=== PATIENT | male | born 1975 | race Caucasian/White ===

== ENCOUNTER 2017-02-12 09:51 | Inpatient (IN) | payer OTHER ==
[2017-02-12] MEDS ORDERED: HYDROmorphone 1 MG/ML 1 ML SYRINGE IVP STA ×2 (10:09→13:05)
[2017-02-12] MEDS ORDERED: ONDANSETRON 4 MG/2 ML VIAL IVP STA (10:09)
[2017-02-12] MEDS ORDERED: SODIUM CHLORIDE 0.9% 1,000 ML IV STA ×2 (10:10)
[2017-02-12] MEDS ORDERED: PANTOPRAZOLE 40 MG/10 ML VIAL IVP STA (10:10)
--- NOTE | 2017-02-12 10:13 | ED ---
General Adult HPI <DestinyAdan Morgan - Last Filed: 02/12/17 13:13> - General Source: patient, RN notes reviewed Mode of arrival: ambulatory Limitations: no limitations <Justin Del Toro - Last Filed: 02/12/17 13:20> - General Chief complaint: Nausea/Vomiting/Diarrhea Stated complaint: NAUSEA, VOMITING X 2 DAYS Time Seen by Provider: 02/12/17 10:00 - History of Present Illness Initial comments: Patient 41-year-old male significant past medical history for diabetes, hypertension, who presents emergency room today with a chief complaint of increased nausea vomiting over the last 2 days. Patient does admit that he has had some abdominal pain going across abdomen also some chest pain. He states both the symptoms started after of his nausea vomiting. Patient denies any other complaints or associated symptoms at this time. Does admit to chronic wound to the left foot. Patient denies any recent fever, chills, shortness of breath, numbness or tingling, dysuria or hematuria, constipation or diarrhea, headaches or visual changes, or any other complaints. (Justin Del Toro) - Related Data Home Medications Medication Instructions Recorded Confirmed Insulin NPL/Insulin Lispro 30 unit SQ BID 06/14/15 02/12/17 [humaLOG Mix 75-25 Kwikpen] Atorvastatin [Lipitor] 10 mg PO HS 09/05/16 02/12/17 Citalopram Hydrobromide [CeleXA] 20 mg PO DAILY 09/05/16 02/12/17 Cyclobenzaprine [Flexeril] 10 mg PO HS PRN 09/05/16 02/12/17 HYDROcodone/APAP 7.5-325MG [[place] 1 tab PO Q6HR 09/05/16 02/12/17 7.5-325] Metoclopramide [Reglan] 10 mg PO QID 09/05/16 02/12/17 Ondansetron Odt [Zofran ODT] 4 mg SUBLINGUAL Q12H PRN 09/05/16 02/12/17 Lisinopril [Zestril] 10 mg PO DAILY 12/20/16 02/12/17 Nitroglycerin 0.4 mg SL Q5M PRN 12/20/16 02/12/17 Aspirin 81 mg PO DAILY 02/12/17 02/12/17 Carvedilol [Coreg] 6.25 mg PO BID 02/12/17 02/12/17 Ergocalciferol [Vitamin D2] 50,000 unit PO Q7D 02/12/17 02/12/17 Allergies Allergy/AdvReac Type Severity Reaction Status Date / Time No Known Allergies Allergy Verified 02/12/17 09:55 Review of Systems ROS Other: All systems not noted in ROS Statement are negative. <Adan Dixon - Last Filed: 02/12/17 13:13> ROS Other: All systems not noted in ROS Statement are negative. <Justin Del Toro - Last Filed: 02/12/17 13:20> ROS Statement: Those systems with pertinent positive or pertinent negative responses have been documented in the HPI. Past Medical History Past Medical History: Diabetes Mellitus, Hyperlipidemia, Hypertension, Sleep Apnea/CPAP/BIPAP Additional Past Medical History / Comment(s): , HX COMA, ESOPHAGEAL DAMAGEHX OF FEEDING TUBE X 17 MONTHS, past WOUND LEFT CHEST(cellulitis). no cpap used, hx blood clot mike arms. infection in rt second toe osteomyelitis. loose stools, seizure as , wound lt great toe History of Any Multi-Drug Resistant Organisms: MRSA Date of last positivie culture/infection: 02/28/16, 06/17/15 lt chest cellulitis MDRO Source:: rt second toe Past Surgical History: Tonsillectomy Additional Past Surgical History / Comment(s): bronchial cyst removed, esophagus clipped and removed, stomach stretching, pt reports 35 different procedures on esophogus, amputation rt great toe and toe next to great toe, picc line 6-16, i&d chest wound Past Anesthesia/Blood Transfusion Reactions: No Reported Reaction Past Psychological History: No Psychological Hx Reported Smoking Status: Never smoker Past Alcohol Use History: Rare Past Drug Use History: None Reported - Past Family History Father Family Medical History: Diabetes Mellitus Additional Family Medical History / Comment(s): ETOH Mother Family Medical History: No Reported History <Justin Del Toro - Last Filed: 02/12/17 13:20> General Exam <Adan Dixon - Last Filed: 02/12/17 13:13> Limitations: no limitations <Justin Del Toro - Last Filed: 02/12/17 13:20> - General Exam Comments Initial Comments: General: The patient is awake and alert, in no distress, and does not appear acutely ill. Eye: Pupils are equal, round and reactive to light, extra-ocular movements are intact. No nystagmus. There is normal conjunctiva bilaterally. No signs of icterus. Ears, nose, mouth and throat: There are moist mucous membranes and no oral lesions. Neck: The neck is supple, there is no tenderness or JVD. Cardiovascular: There is a regular rate and rhythm. No murmur, rub or gallop is appreciated. Respiratory: Lungs are clear to auscultation, respirations are non-labored, breath sounds are equal. No wheezes, stridor, rales, or rhonchi. Gastrointestinal: Normal appearance of the abdomen. Normal bowel sounds. Abdomen soft on palpation. Patient does have mild diffuse tenderness in the epigastric and upper quadrants. No rebound tenderness. No Guarding. No CVA tenderness. Musculoskeletal: Normal ROM, no tenderness. Strength 5/5. Sensation intact. Pulses equal bilaterally 2+. Neurological: A&O x 3. CN II-XII intact, There are no obvious motor or sensory deficits. Coordination appears grossly intact. Speech is normal. Skin: Skin is warm and dry and no rashes or lesions are noted. Psychiatric: Cooperative, appropriate mood & affect, normal judgment. (Justin Del Toro) EKG Findings - EKG Comments: EKG Findings:: EKG performed at 1024: A 12-lead EKG was performed and interpreted by me as showing the following: Rate is 68, and rhythm is normal sinus. There are normal QRS complexes and normal R-wave progression. ST segments have no elevation or depression, and VA segments appear normal. <Justin Del Toro - Last Filed: 02/12/17 13:20> Medical Decision Making - Lab Data Result diagrams: 02/12/17 10:47 02/12/17 10:47 <Adan Dixon - Last Filed: 02/12/17 13:13> - Lab Data Result diagrams: 02/12/17 10:47 02/12/17 10:47 <Justin Del Toro - Last Filed: 02/12/17 13:20> - Medical Decision Making The patient was seen and examined. All diagnostics were reviewed. The case is discussed with the PA and agree with the findings as documented. The case will be discussed with internal medicine in the near future for admission. (Adan Dixon) Patient reexamined at this time shows no signs of distress. Sitting up at bedside. He does admit that he's felt better here with nausea medication but symptoms seem to be returning. Patient's x-rays reviewed and shows no acute change. His labs been reviewed shows blood sugar in the 230s. Acetone negative. Potassium 5.9. Patient EKG shows no changes. Case discussed in detail with attending physician Dr. Dixon. Patient will be started on Kayexalate. Hospital currently does not have sodium bicarbonate at this time we 'll hold and recheck potassium. Patient will be admitted to the hospital for further hydration and nausea medication for his symptoms and chest pain rule out. (Justin Del Toro) - Lab Data Lab Results 02/12/17 02/12/17 02/12/17 Range/Units 09:56 10:14 10:47 WBC (3.8-10.6) k/uL RBC (4.30-5.90) m/uL Hgb (13.0-17.5) gm/dL Hct (39.0-53.0) % MCV (80.0-100.0) fL MCH (25.0-35.0) pg MCHC (31.0-37.0) g/dL RDW (11.5-15.5) % Plt Count (150-450) k/uL Neutrophils % % Lymphocytes % % Monocytes % % Eosinophils % % Basophils % % Neutrophils # (1.3-7.7) k/uL Lymphocytes # (1.0-4.8) k/uL Monocytes # (0-1.0) k/uL Eosinophils # (0-0.7) k/uL Basophils # (0-0.2) k/uL Hypochromasia PT (9.0-12.0) sec INR (<1.1) APTT (22.0-30.0) sec Sodium 142 (137-145) mmol/L Potassium 5.9 H (3.5-5.1) mmol/L Chloride 106 (98-107) mmol/L Carbon Dioxide 24 (22-30) mmol/L Anion Gap 12 mmol/L BUN 15 (9-20) mg/dL Creatinine 0.91 (0.66-1.25) mg/dL Est GFR (MDRD) Af Amer >60 (>60 ml/min/1.73 sqM) Est GFR (MDRD) Non-Af >60 (>60 ml/min/1.73 sqM) Glucose 277 H (74-99) mg/dL POC Glucose (mg/dL) 225 H 234 H (75-99) mg/dL POC Glu Affiliate Manager Shantell Zacarias Kayla Calcium 10.0 (8.4-10.2) mg/dL Total Bilirubin 0.6 (0.2-1.3) mg/dL AST 25 (17-59) U/L ALT 24 (21-72) U/L Alkaline Phosphatase 95 (38-126) U/L Total Creatine Kinase (55-170) U/L CK-MB (CK-2) (0.0-2.4) ng/mL CK-MB (CK-2) Rel Index Troponin I (0.000-0.034) ng/mL Total Protein 8.6 H (6.3-8.2) g/dL Albumin 5.2 H (3.5-5.0) g/dL Amylase 42 (30-110) U/L Lipase 76 (23-300) U/L Urine Color Urine Appearance (Clear) Urine pH (5.0-8.0) Ur Specific [place] (1.001-1.035) Urine Protein (Negative) Urine Glucose (UA) (Negative) Urine Ketones (Negative) Urine Blood (Negative) Urine Nitrite (Negative) Urine Bilirubin (Negative) Urine Urobilinogen (<2.0) mg/dL Ur Leukocyte Esterase (Negative) Urine RBC (0-5) /hpf Urine WBC (0-5) /hpf Ur Squamous Epith Cells (0-4) /hpf Hyaline Casts (0-2) /lpf Urine Mucus (None) /hpf Acetone, Qual Negative (Negative) 02/12/17 02/12/17 02/12/17 Range/Units 10:47 10:47 10:47 WBC 10.4 (3.8-10.6) k/uL RBC 4.67 (4.30-5.90) m/uL Hgb 13.4 (13.0-17.5) gm/dL Hct 41.7 (39.0-53.0) % MCV 89.4 (80.0-100.0) fL MCH 28.7 (25.0-35.0) pg MCHC 32.1 (31.0-37.0) g/dL RDW 13.6 (11.5-15.5) % Plt Count 257 (150-450) k/uL Neutrophils % 78 % Lymphocytes % 13 % Monocytes % 3 % Eosinophils % 4 % Basophils % 1 % Neutrophils # 8.1 H (1.3-7.7) k/uL Lymphocytes # 1.4 (1.0-4.8) k/uL Monocytes # 0.4 (0-1.0) k/uL Eosinophils # 0.4 (0-0.7) k/uL Basophils # 0.1 (0-0.2) k/uL Hypochromasia Slight PT 10.6 (9.0-12.0) sec INR 1.0 (<1.1) APTT 21.4 L (22.0-30.0) sec Sodium (137-145) mmol/L Potassium (3.5-5.1) mmol/L Chloride (98-107) mmol/L Carbon Dioxide (22-30) mmol/L Anion Gap mmol/L BUN (9-20) mg/dL Creatinine (0.66-1.25) mg/dL Est GFR (MDRD) Af Amer (>60 ml/min/1.73 sqM) Est GFR (MDRD) Non-Af (>60 ml/min/1.73 sqM) Glucose (74-99) mg/dL POC Glucose (mg/dL) (75-99) mg/dL POC Glu Affiliate Manager ID Calcium (8.4-10.2) mg/dL Total Bilirubin (0.2-1.3) mg/dL AST (17-59) U/L ALT (21-72) U/L Alkaline Phosphatase (38-126) U/L Total Creatine Kinase 121 (55-170) U/L CK-MB (CK-2) 2.3 (0.0-2.4) ng/mL CK-MB (CK-2) Rel Index 1.9 Troponin I <0.012 (0.000-0.034) ng/mL Total Protein (6.3-8.2) g/dL Albumin (3.5-5.0) g/dL Amylase (30-110) U/L Lipase (23-300) U/L Urine Color Urine Appearance (Clear) Urine pH (5.0-8.0) Ur Specific [place] (1.001-1.035) Urine Protein (Negative) Urine Glucose (UA) (Negative) Urine Ketones (Negative) Urine Blood (Negative) Urine Nitrite (Negative) Urine Bilirubin (Negative) Urine Urobilinogen (<2.0) mg/dL Ur Leukocyte Esterase (Negative) Urine RBC (0-5) /hpf Urine WBC (0-5) /hpf Ur Squamous Epith Cells (0-4) /hpf Hyaline Casts (0-2) /lpf Urine Mucus (None) /hpf Acetone, Qual (Negative) 02/12/17 Range/Units 11:53 WBC (3.8-10.6) k/uL RBC (4.30-5.90) m/uL Hgb (13.0-17.5) gm/dL Hct (39.0-53.0) % MCV (80.0-100.0) fL MCH (25.0-35.0) pg MCHC (31.0-37.0) g/dL RDW (11.5-15.5) % Plt Count (150-450) k/uL Neutrophils % % Lymphocytes % % Monocytes % % Eosinophils % % Basophils % % Neutrophils # (1.3-7.7) k/uL Lymphocytes # (1.0-4.8) k/uL Monocytes # (0-1.0) k/uL Eosinophils # (0-0.7) k/uL Basophils # (0-0.2) k/uL Hypochromasia PT (9.0-12.0) sec INR (<1.1) APTT (22.0-30.0) sec Sodium (137-145) mmol/L Potassium (3.5-5.1) mmol/L Chloride (98-107) mmol/L Carbon Dioxide (22-30) mmol/L Anion Gap mmol/L BUN (9-20) mg/dL Creatinine (0.66-1.25) mg/dL Est GFR (MDRD) Af Amer (>60 ml/min/1.73 sqM) Est GFR (MDRD) Non-Af (>60 ml/min/1.73 sqM) Glucose (74-99) mg/dL POC Glucose (mg/dL) (75-99) mg/dL POC Glu Affiliate Manager ID Calcium (8.4-10.2) mg/dL Total Bilirubin (0.2-1.3) mg/dL AST (17-59) U/L ALT (21-72) U/L Alkaline Phosphatase (38-126) U/L Total Creatine Kinase (55-170) U/L CK-MB (CK-2) (0.0-2.4) ng/mL CK-MB (CK-2) Rel Index Troponin I (0.000-0.034) ng/mL Total Protein (6.3-8.2) g/dL Albumin (3.5-5.0) g/dL Amylase (30-110) U/L Lipase (23-300) U/L Urine Color Yellow Urine Appearance Clear (Clear) Urine pH 5.5 (5.0-8.0) Ur Specific [place] 1.020 (1.001-1.035) Urine Protein 1+ H (Negative) Urine Glucose (UA) 4+ H (Negative) Urine Ketones Negative (Negative) Urine Blood Trace H (Negative) Urine Nitrite Negative (Negative) Urine Bilirubin Negative (Negative) Urine Urobilinogen <2.0 (<2.0) mg/dL Ur Leukocyte Esterase Negative (Negative) Urine RBC 1 (0-5) /hpf Urine WBC <1 (0-5) /hpf Ur Squamous Epith Cells <1 (0-4) /hpf Hyaline Casts 15 H (0-2) /lpf Urine Mucus Rare H (None) /hpf Acetone, Qual (Negative) Disposition <Adan Dixon - Last Filed: 02/12/17 13:13> Time of Disposition: 13:03 <Justin Del Toro - Last Filed: 02/12/17 13:20> Clinical Impression: Nausea & vomiting, Hyperkalemia, Chest pain Disposition: ADMITTED IP TO THIS HOSP Referrals: Jeanne Celeste MD [Primary Care Provider] - 1-2 days
[2017-02-12 10:14] LABS: Glucose,Whole Blood 225 mg/dL (75-99)
[2017-02-12 10:18] LABS: Glucose,Whole Blood 234 mg/dL (75-99)
[2017-02-12 11:12] LABS: Basophils # (A) 0.1 k/uL (0-0.2); Basophils % (A) 1 %; CH 28.7; CHCM 32.3; Eosinophils # (A) 0.4 k/uL (0-0.7); Eosinophils % (A) 4 %; HCT 41.7 % (39.0-53.0); HGB 13.4 gm/dL (13.0-17.5); Hypochromasia Slight; Luc % (Auto) 1; Lymphocytes # (A) 1.4 k/uL (1.0-4.8); Lymphocytes % (A) 13 %; MCH 28.7 pg (25.0-35.0); MCHC 32.1 g/dL (31.0-37.0); MCV 89.4 fL (80.0-100.0); Mean Platelet Volume 7.8; Monocytes # (A) 0.4 k/uL (0-1.0); Monocytes % (A) 3 %; Neutrophils # (A) 8.1 k/uL (1.3-7.7); Neutrophils % (A) 78 %; RBC 4.67 m/uL (4.30-5.90); RDW 13.6 % (11.5-15.5); WBC 10.4 k/uL (3.8-10.6); WBC (Perox) 10.59
[2017-02-12 11:19] LABS: ALT 24 U/L (21-72); AST 25 U/L (17-59); Alkaline Phosphatase 95 U/L (38-126); Amylase 42 U/L (30-110); Blood Urea Nitrogen 15 mg/dL (9-20); Carbon Dioxide 24 mmol/L (22-30); Chloride 106 mmol/L (98-107); Glucose 277 mg/dL (74-99); Non-African American GFR(MDRD) >60 (>60 ml/min/1.73 sqM); Potassium 5.9 mmol/L (3.5-5.1); Total Bilirubin 0.6 mg/dL (0.2-1.3); Total Protein 8.6 g/dL (6.3-8.2)
[2017-02-12 11:20] LABS: Prothrombin Time 10.6 sec (9.0-12.0)
[2017-02-12 11:28] LABS: Partial Thromboplastin Time 21.4 sec (22.0-30.0)
[2017-02-12 11:37] LABS: Creatine Kinase 121 U/L (55-170)
[2017-02-12] MEDS ORDERED: METOCLOPRAMIDE 5 MG/ML 2 ML VIAL IVP STA (11:47)
[2017-02-12 11:49] LABS: Creatine Kinase MB 2.3 ng/mL (0.0-2.4); Troponin I <0.012 ng/mL (0.000-0.034)
[2017-02-12 11:55] LABS: Anion Gap 12 mmol/L; Sodium 142 mmol/L (137-145)
[2017-02-12 12:10] LABS: Appearance,Urine Clear (Clear); Bilirubin,Urine Negative (Negative); Glucose,Urine (UA) 4+ (Negative); Ketones,Urine Negative (Negative); Leukocyte Esterase,Urine Negative (Negative); Mucus,Urine Rare /hpf; Nitrite,Urine Negative (Negative); PH, Urine 5.5 (5.0-8.0); Particle Count 2648; Protein,Urine 1+ (Negative); RBC,Urine 1 /hpf (0-5); Squamous Epithelial Cell,Urine <1 /hpf (0-4); UA Billing (MACRO vs. MICRO) MICRO; Urobilinogen,Urine <2.0 mg/dL (<2.0); WBC,Urine <1 /hpf (0-5)
--- NOTE | 2017-02-12 13:00 | XR ---
EXAMINATION TYPE: XR chest 2V DATE OF EXAM: 02/12/2017 12:52 PM HISTORY: cough. REFERENCE: Previous study dated 09/05/2016. FINDINGS: There is stable pleural thickening on the right. Lung volumes are mildly prominent. Heart s ize is within normal limits. IMPRESSION: NO SIGNIFICANT INTERVAL CHANGE IN THE APPEARANCE OF THE CHEST.
[2017-02-12] MEDS ORDERED: PROMETHAZINE SUPPOSITORY 25 MG SUPP RECTAL STA (13:12)
[2017-02-12] MEDS ORDERED: SODIUM CHLORIDE 0.9% 1,000 ML IV ONE (13:13)
[2017-02-12] MEDS ORDERED: NALOXONE 0.4 MG/ML 1 ML VIAL IV PRN (13:13)
[2017-02-12] MEDS ORDERED: ACETAMINOPHEN TAB 325 MG TAB PO PRN (13:13)
[2017-02-12] MEDS ORDERED: ASPIRIN 81 MG CHEW PO STA (13:18)
[2017-02-12] MEDS ORDERED: NITROGLYCERIN SL TABS 0.4 MG TAB SUBLINGUAL PRN (13:18)
[2017-02-12] MEDS: SODIUM POLYSTYRENE SULFONATE 15 GM/60 ML BOTTLE PO ONE ×2 (13:29→13:39)
[2017-02-12] MEDS: HYDROmorphone 1 MG/ML 1 ML SYRINGE IV PRN ×2 (16:48→20:12)
[2017-02-12 17:40] LABS: Creatine Kinase 112 U/L (55-170)
[2017-02-12 17:49] LABS: Creatine Kinase MB 2.1 ng/mL (0.0-2.4)
[2017-02-12 18:16] LABS: Troponin I <0.012 ng/mL (0.000-0.034)
[2017-02-12] MEDS: METOCLOPRAMIDE 5 MG/ML 2 ML VIAL IVP SCH ×2 (19:26→23:24)
[2017-02-12 20:48] LABS: Glucose,Whole Blood 248 mg/dL (75-99)
[2017-02-12 21:24] LABS: Hemoglobin A1C 7.8 % (4.2-6.1)
[2017-02-12] MEDS: INSULIN LISPRO (humaLOG) 300 UNIT/3 ML VIAL SQ SCH (21:40)
[2017-02-12] MEDS ORDERED: CYCLOBENZAPRINE 10 MG TAB PO PRN (22:17)
[2017-02-12] MEDS ORDERED: TEMAZEPAM 15 MG CAP PO PRN (22:19)
[2017-02-12 23:16] LABS: Creatine Kinase 93 U/L (55-170)
[2017-02-12] MEDS: HYDROmorphone 1 MG/ML 1 ML SYRINGE IVP PRN (23:25)
[2017-02-12] MEDS: PANTOPRAZOLE 40 MG/10 ML VIAL IVP SCH (23:25)
[2017-02-12 23:28] LABS: Creatine Kinase MB 1.6 ng/mL (0.0-2.4); Troponin I <0.012 ng/mL (0.000-0.034)
[2017-02-13] MEDS: HYDROcodone/APAP 7.5-325MG 1 EACH TAB PO SCH ×3 (01:08→12:58)
[2017-02-13] MEDS: ONDANSETRON 4 MG/2 ML VIAL IVP PRN ×2 (02:07→09:31)
[2017-02-13] MEDS: HYDROmorphone 1 MG/ML 1 ML SYRINGE IVP PRN ×5 (04:40→23:39)
[2017-02-13 06:05] LABS: Glucose,Whole Blood 245 mg/dL (75-99)
[2017-02-13] MEDS: INSULIN LISPRO (humaLOG) 300 UNIT/3 ML VIAL SQ SCH ×4 (06:42→20:48)
[2017-02-13] MEDS: METOCLOPRAMIDE 5 MG/ML 2 ML VIAL IVP SCH ×4 (06:42→23:38)
[2017-02-13 06:57] LABS: Basophils % (A) 0 %; CH 28.5; CHCM 32.6; Eosinophils % (A) 0 %; HCT 35.3 % (39.0-53.0); HDW 2.91; HGB 11.7 gm/dL (13.0-17.5); Luc # (Auto) 0.08; Luc % (Auto) 1; Lymphocytes # (A) 1.1 k/uL (1.0-4.8); Lymphocytes % (A) 13 %; MCH 29.1 pg (25.0-35.0); MCHC 33.2 g/dL (31.0-37.0); MCV 87.7 fL (80.0-100.0); Mean Platelet Volume 7.8; Monocytes # (A) 0.4 k/uL (0-1.0); Monocytes % (A) 4 %; Neutrophils # (A) 7.2 k/uL (1.3-7.7); Neutrophils % (A) 82 %; RBC 4.03 m/uL (4.30-5.90); RDW 13.5 % (11.5-15.5); WBC 8.7 k/uL (3.8-10.6)
[2017-02-13 07:35] LABS: Cholesterol 159 mg/dL (<200); HDL Cholesterol 38 mg/dL (40-60); Triglycerides 173 mg/dL (<150)
--- NOTE | 2017-02-13 08:11 | HP ---
DATE OF ADMISSION: 02/12/2017 CHIEF COMPLAINT: Nausea, vomiting and unable to keep anything down. HISTORY OF PRESENT ILLNESS: This 41-year-old gentleman with a past medical history of multiple medical problems including history of diabetes, hypertension, hyperlipidemia, sleep apnea, history of multiple surgeries after esophageal damage, history of prolonged feeding tube, history of left chest cellulitis, history of seizures in childhood, history of MRSA, being followed by Dr. Celeste in the outpatient setting not feeling well for the past several days. Patient has had nausea, vomiting and unable to keep anything down for the last 2 days daily. The patient became increasingly weak and tired and the patient also complaining of abdominal pain, which is felt diffusely across the abdomen and patient came to [facility] and admitted for further evaluation and treatment. There is no history of fever, rigors. No history of headache, loss of consciousness, seizures. PAST MEDICAL HISTORY: History of diabetes mellitus type 2, history of hypertension, hyperlipidemia, sleep apnea, history of tonsillectomy. Medications prior to admission include: 1. Zofran 4 mg b.i.d. 2. Nitroglycerin 0.4 sublingual p.r.n. 3. [place] 7.5 q.6 p.r.n. 4. Reglan 10 mg q.i.d. 5. Zestril 10 mg p.o. daily. 6. Insulin lispro 75/25 30 units subcu b.i.d. 7. Vitamin D2 50,000 every 7 days. 8. Flexeril 10 mg at bedtime p.r.n. 9. Celexa 20 mg p.o. daily. 10. Coreg 6.25 mg p.o. b.i.d. 11. Lipitor 10 mg q.h.s. 12. Aspirin 81 mg p.o. daily. ALLERGIES: None. FAMILY HISTORY: History of diabetes mellitus type 2, history of EtOH. SOCIAL HISTORY: No history of smoking, history of alcohol. REVIEW OF SYSTEMS: ENT: No diminished hearing, diminished vision. CARDIOVASCULAR: As mentioned earlier. RESPIRATORY: As mentioned earlier. GI: No nausea. : No dysuria. NERVOUS SYSTEM: No numbness or weakness. ALLERGY/IMMUNOLOGY: No asthma or hayfever. MUSCULOSKELETAL: As mentioned earlier. HEMATOLOGY/ONCOLOGY: No history of anemia. ENDOCRINE: Diabetes. Constitutional As mentioned earlier. DERMATOLOGY: Negative. RHEUMATOLOGY: Negative. PSYCHIATRY: As mentioned earlier. PHYSICAL EXAMINATION: Patient alert and oriented x3. Pulse is 73, blood pressure 174/75, respirations 18, temperature 97.7, pulse ox 97% on room air. HEENT: Conjunctivae normal. Oral mucosa moist. NECK: No jugular venous distention, no carotid bruit. No lymph node enlargement. CARDIOVASCULAR: S1, S2. No S3, no S4. RESPIRATORY: Breath sounds diminished at basis. A few rhonchi, no crackles. Healed scar shows the surgery present on anterior part of the abdomen. ABDOMEN: Soft. Mild diffuse distention. Mild diffuse tenderness present. No guarding or rigidity. No mass palpable. Bowel sounds present. No ascites. LEGS: No edema. No swelling. NERVOUS SYSTEM: Higher function as mentioned. Moves all four limbs. No focal deficits. LYMPHATICS: No lymphadenopathy palpable in neck, axillae or groin. SKIN: No ulcer, rash or bleeding. LABS: CBC within normal limits. Potassium 5.9 and glucose is 277. Albumin is 5.2. UA noted. Acetone is negative. ASSESSMENT: 1. Incessant nausea and vomiting, rule out peptic ulcer disease or gastroparesis. 2. Diabetes mellitus type 2. 3. Hyperkalemia. 4. Dehydration, present on admission because of incessant vomiting. 5. History of diabetes type 2. 6. History of hypertension. 7. Hyperlipidemia. 8. Obstructive sleep apnea 9. Obesity, body mass index of 40.2. 10. 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 11. History of feeding tube. 12. History of chest wall cellulitis. 13. History of bilateral deep venous thromboses. 14. History of right second toe osteomyelitis. 15. History of seizure as a child. 16. History of methicillin-resistant Staphylococcus aureus. 17. History of tonsillectomy. 18. History of degenerative joint disease. 19. History of gastroesophageal reflux disease. RECOMMENDATIONS AND DISCUSSION: In this 41-year-old gentleman who presented with multiple complex issues, we will monitor the patient closely. Continue the current medications, continue with symptomatic treatment. Continue with IV fluids, proton pump inhibitors and I would recommend gastroenterology evaluation. Otherwise see orders for further details. Prognosis guarded. Further recommendations to follow. One dose of Kayexalate has been given. I will repeat the lytes and continue to monitor. See orders for further details. Prognosis guarded. I discussed with the patient. I would also recommend a UA with micro as well as urine drug screen also. She orders for further details.
[2017-02-13] MEDS ORDERED: PANTOPRAZOLE 40 MG/10 ML VIAL IV SCH (09:00)
[2017-02-13] MEDS ORDERED: ASPIRIN 325 MG TAB PO SCH (09:00)
[2017-02-13] MEDS ORDERED: CARVEDILOL 6.25 MG TAB PO SCH (09:00)
[2017-02-13] MEDS: INSULIN NPL/INSULIN LISPRO 100 UNIT/ML 10 ML VIAL (Humalog 75/25) SQ SCH ×2 (09:30→20:48)
[2017-02-13] MEDS: PANTOPRAZOLE 40 MG/10 ML VIAL IVP SCH ×2 (09:30→19:52)
[2017-02-13] MEDS: CITALOPRAM HYDROBROMIDE 20 MG TAB PO SCH (09:31)
--- NOTE | 2017-02-13 09:46 | P.CONS ---
History of Present Illness - Reason for Consult Consult date: 02/13/17 Nausea vomiting epigastric pain Requesting physician: Jabari Rawls - History of Present Illness 41-year-old male with a past medical history of morbid obesity, diabetes mellitus, DVT, obstructive sleep apnea, bronchogenic cyst status post multiple surgeries with complications requiring multiple plastic surgeries including flap and subsequent esophageal perforation requiring esophagectomy with anterior gastric pull-through, left foot Chambers ulcer, and MRSA. Presents with 2 day history of epigastric pain nausea vomiting. Denies hematemesis hematochezia melena. Hemoglobin 13.4 presently 11.7. White count 8.7. Platelet 235. INR 1.0. Acetone negative. Serum glucose 277. Potassium 5.9 received Kayexalate. Troponin less than 0.0123. BUN 15. Creatinine 0.9. No history of EGD. Multiple dry heaves over the last 48 hours with small bilious emesis patient is unable to have large volume emesis secondary to esophagectomy. Takes Reglan at home no PPI or H2 antagonist GI prophylaxis. No alcohol. No excessive usage of aspirin or NSAIDs. Review of Systems Constitutional: Denies fever, chills, sweats, weight gain, or loss. HEENT: Negative for migraines, blurred vision or loss, earaches, drainage, tinnitus, oral mucosal lesions, dysphagia, or odynophagia. Cardiac: Cardiac surgery. Hypertension. Hyperlipidemia. Negative for chest pain, arrhythmias, or palpitation. Respiratory: Sleep apnea CPAP. Negative for shortness of breath, hemoptysis, cough, or sputum production. Gastrointestinal: See HPI for pertinent findings. Genitourinary: Negative for hematuria, urgency, frequency, polyuria, dysuria, or penile discharge. Musculoskeletal: Negative for muscle aches, swelling, arthritis, and arthralgias. Neurologic: Negative for stroke or TIA. Endocrine: Diabetes mellitus. Negative for thyroid problems. Skin: Negative for rash or itching. Psychiatric: Negative history for depression and anxiety All systems: negative (See HPI) Past Medical History Past Medical History: Diabetes Mellitus, Hyperlipidemia, Hypertension, Sleep Apnea/CPAP/BIPAP Additional Past Medical History / Comment(s): sleep apnea-no cpap machine used, HX COMA x2 after sx ESOPHAGEAL DAMAGE HX OF FEEDING TUBE X 17 MONTHS, past WOUND LEFT CHEST(cellulitis). no cpap used, hx blood clot mike arms. infection in rt second toe osteomyelitis(pt stated toe was amputated). " loose stools "seizure as , wound lt great foot/goes [facility] on wed History of Any Multi-Drug Resistant Organisms: MRSA Year Discovered:: 02/28/16, 06/17/15 lt chest cellulitis MDRO Source:: rt second toe Past Surgical History: Tonsillectomy Additional Past Surgical History / Comment(s): bronchial cyst removed, esophagus clipped and removed, stomach stretching, pt reports 35 different procedures on esophogus, amputation rt great toe and toe next to great toe, picc line 03-03-16-since removed, i&d chest wound Past Anesthesia/Blood Transfusion Reactions: No Reported Reaction Past Psychological History: No Psychological Hx Reported Smoking Status: Never smoker Past Alcohol Use History: Occasional Past Drug Use History: None Reported - Past Family History Father Family Medical History: Diabetes Mellitus Additional Family Medical History / Comment(s): ETOH Mother Family Medical History: No Reported History Medications and Allergies Home Medications Medication Instructions Recorded Confirmed Type Insulin Lispro Protamin/Lispro 30 unit SQ BID 06/14/15 02/12/17 History [humaLOG Mix 75-25 Kwikpen] Atorvastatin [Lipitor] 10 mg PO HS 09/05/16 02/12/17 History Citalopram Hydrobromide [CeleXA] 20 mg PO DAILY 09/05/16 02/12/17 History Cyclobenzaprine [Flexeril] 10 mg PO HS PRN 09/05/16 02/12/17 History HYDROcodone/APAP 7.5-325MG [[place] 1 tab PO Q6HR 09/05/16 02/12/17 History 7.5-325] Metoclopramide [Reglan] 10 mg PO QID 09/05/16 02/12/17 History Ondansetron Odt [Zofran ODT] 4 mg SUBLINGUAL Q12H PRN 09/05/16 02/12/17 History Lisinopril [Zestril] 10 mg PO DAILY 12/20/16 02/12/17 History Nitroglycerin 0.4 mg SL Q5M PRN 12/20/16 02/12/17 History Aspirin 81 mg PO DAILY 02/12/17 02/12/17 History Carvedilol [Coreg] 6.25 mg PO BID 02/12/17 02/12/17 History Ergocalciferol [Vitamin D2] 50,000 unit PO Q7D 02/12/17 02/12/17 History Allergies Allergy/AdvReac Type Severity Reaction Status Date / Time No Known Allergies Allergy Verified 02/12/17 09:55 Physical Exam Vitals: Vital Signs Temp Pulse Pulse Resp BP BP Pulse Ox 02/13/17 08:18 96 02/13/17 08:00 99.6 F 76 16 200/89 93 L 02/13/17 03:53 98.6 F 78 20 176/76 96 02/13/17 00:00 76 18 179/84 97 02/12/17 20:15 97.7 F 73 18 174/74 97 02/12/17 16:00 71 16 182/91 98 02/12/17 14:54 97.7 F 78 16 158/74 93 L 02/12/17 09:52 99.0 F 76 20 185/88 98 Intake and Output 02/12/17 02/13/17 02/13/17 22:59 06:59 14:59 Intake Total 0 0 Output Total 400 400 Balance -400 -400 0 Intake: Oral 0 0 Output: Urine 400 400 Other: Weight 138.3 kg 137.2 kg General appearance: The patient is alert, oriented, in no acute distress. HET: Head is normocephalic and atraumatic. Pupils are equal and reactive. Oropharynx is clear without lesions. Neck: Supple without lymphadenopathy. Trachea midline. Heart: S1 S2. Regular rate and rhythm. Lungs: No crackles or wheezes are heard. Abdomen: Soft, mild midepigastric tenderness, nondistended with bowel sounds. No peritoneal signs. No palpable organomegaly or masses. Extremities: No edema. Left lower extremity foot wound. Neurological: No focal deficits. Strength and sensation are grossly intact. Results CBC & Chem 7: 02/13/17 06:32 02/12/17 10:47 Labs: Abnormal Lab Results - Last 24 Hours (Table) 02/12/17 02/12/17 02/12/17 Range/Units 09:56 10:14 10:47 RBC (4.30-5.90) m/uL Hgb (13.0-17.5) gm/dL Hct (39.0-53.0) % Neutrophils # (1.3-7.7) k/uL APTT (22.0-30.0) sec Potassium 5.9 H (3.5-5.1) mmol/L Glucose 277 H (74-99) mg/dL POC Glucose (mg/dL) 225 H 234 H (75-99) mg/dL Hemoglobin A1c (4.2-6.1) % Total Protein 8.6 H (6.3-8.2) g/dL Albumin 5.2 H (3.5-5.0) g/dL Triglycerides (<150) mg/dL HDL Cholesterol (40-60) mg/dL Urine Protein (Negative) Urine Glucose (UA) (Negative) Urine Blood (Negative) Hyaline Casts (0-2) /lpf Urine Mucus (None) /hpf 02/12/17 02/12/17 02/12/17 Range/Units 10:47 10:47 10:47 RBC (4.30-5.90) m/uL Hgb (13.0-17.5) gm/dL Hct (39.0-53.0) % Neutrophils # 8.1 H (1.3-7.7) k/uL APTT 21.4 L (22.0-30.0) sec Potassium (3.5-5.1) mmol/L Glucose (74-99) mg/dL POC Glucose (mg/dL) (75-99) mg/dL Hemoglobin A1c 7.8 H (4.2-6.1) % Total Protein (6.3-8.2) g/dL Albumin (3.5-5.0) g/dL Triglycerides (<150) mg/dL HDL Cholesterol (40-60) mg/dL Urine Protein (Negative) Urine Glucose (UA) (Negative) Urine Blood (Negative) Hyaline Casts (0-2) /lpf Urine Mucus (None) /hpf 02/12/17 02/12/17 02/13/17 Range/Units 11:53 20:47 06:04 RBC (4.30-5.90) m/uL Hgb (13.0-17.5) gm/dL Hct (39.0-53.0) % Neutrophils # (1.3-7.7) k/uL APTT (22.0-30.0) sec Potassium (3.5-5.1) mmol/L Glucose (74-99) mg/dL POC Glucose (mg/dL) 248 H 245 H (75-99) mg/dL Hemoglobin A1c (4.2-6.1) % Total Protein (6.3-8.2) g/dL Albumin (3.5-5.0) g/dL Triglycerides (<150) mg/dL HDL Cholesterol (40-60) mg/dL Urine Protein 1+ H (Negative) Urine Glucose (UA) 4+ H (Negative) Urine Blood Trace H (Negative) Hyaline Casts 15 H (0-2) /lpf Urine Mucus Rare H (None) /hpf 02/13/17 02/13/17 Range/Units 06:32 06:32 RBC 4.03 L (4.30-5.90) m/uL Hgb 11.7 L (13.0-17.5) gm/dL Hct 35.3 L (39.0-53.0) % Neutrophils # (1.3-7.7) k/uL APTT (22.0-30.0) sec Potassium (3.5-5.1) mmol/L Glucose (74-99) mg/dL POC Glucose (mg/dL) (75-99) mg/dL Hemoglobin A1c (4.2-6.1) % Total Protein (6.3-8.2) g/dL Albumin (3.5-5.0) g/dL Triglycerides 173 H (<150) mg/dL HDL Cholesterol 38 L (40-60) mg/dL Urine Protein (Negative) Urine Glucose (UA) (Negative) Urine Blood (Negative) Hyaline Casts (0-2) /lpf Urine Mucus (None) /hpf Assessment and Plan (1) Epigastric pain Narrative/Plan: Possible gastroparesis with history of underlying long-standing diabetes mellitus possible gastroenteritis possible nonbleeding peptic ulcer disease. History of esophagectomy with anterior gastric pull-through. Status: Acute Plan: 1. Continue with Reglan and PPI therapy twice daily. Supportive measures. 2. Light diet as tolerated. 3. We'll proceed with EGD evaluation tomorrow afternoon. The vessel manager has discussed the risks, benefits and alternative therapies for the above-mentioned procedure and for both sedation/analgesia as well as necessary blood product administration, if indicated, as they pertain to this patient. The patient has indicated understanding and acceptance of the risks and procedures discussed. Thank you for this kind referral and the opportunity to participate in the care of your patient. This consultation was discussed with Dr. Correa. The impression and plan of care have been directed as dictated.
[2017-02-13] MEDS ORDERED: ONDANSETRON 4 MG/2 ML VIAL IVP STA (10:00)
--- NOTE | 2017-02-13 10:13 | P.CRDCN ---
<Meli Holguin E - Last Filed: 02/13/17 09:49> History of Present Illness Consult date: 02/13/17 Requesting physician: Miguel Angel Benítez Consult reason: chest pain Chief complaint: Abdominal pain, vomiting, chest pain History of present illness: His is a 41-year-old gentleman with past medical history significant for hypertension, diabetes, hyperlipidemia, sleep apnea, multiple surgeries following esophageal damage and prolonged feeding tube, history of left chest cellulitis, MRSA, leg wounds being followed at the wound clinic. presents to the hospital on this occasion with symptoms of nausea and vomiting, the patient states he's been able unable to keep any food down for the past 2-3 days. He also states that he's been experiencing abdominal pain, and after he has several episodes of vomiting his chest hurts. Patient had a similar admission to the hospital in August, he was recommended to follow-up as an outpatient and have a stress test as an outpatient. Patient states he did have a stress test in August, he thinks it was in the [place] area. He also states that he was told following that at the bottom portion of his heart was not getting adequate blood supply. We will attempt to get these records from Dr. Celeste's office. His chest pain on this admission is very atypical in nature. EKG on arrival here shows normal sinus rhythm with no acute changes. Chest x-ray does not reveal any significant change. Blood pressure on arrival here 185/88 with a heart rate in the 70s. 98% on room air. He does have a low- grade temperature of 99.0. 99.6 this morning. Blood pressure 200/89. Blood cell count normal, hemoglobin 11.7, potassium 5.9. BUN 15, creatinine 0.9. Blood glucose 277. Hemoglobin A1c 7.8 here troponins have been negative 3. At the time of my examination this morning, patient's main complaint is that of nausea. He denies any chest pain at present. 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 no cpap used, hx blood clot mike arms. infection in rt second toe osteomyelitis(pt stated toe was amputated). " loose stools "seizure as infant, wound lt great foot/goes to [facility] on wed History of Any Multi-Drug Resistant Organisms: MRSA Date of last positivie culture/infection: 02/28/16, 06/17/15 lt chest cellulitis MDRO Source:: rt second toe Past Surgical History: Tonsillectomy Additional Past Surgical History / Comment(s): bronchial cyst removed, esophagus clipped and removed, stomach stretching, pt reports 35 different procedures on esophogus, amputation rt great toe and toe next to great toe, picc line 03-03-16-since removed, i&d chest wound Past Anesthesia/Blood Transfusion Reactions: No Reported Reaction Past Psychological History: No Psychological Hx Reported Smoking Status: Never smoker Past Alcohol Use History: Occasional Past Drug Use History: None Reported - Past Family History Father Family Medical History: Diabetes Mellitus Additional Family Medical History / Comment(s): ETOH Mother Family Medical History: No Reported History Medications and Allergies Home Medications Medication Instructions Recorded Confirmed Type Insulin Lispro Protamin/Lispro 30 unit SQ BID 06/14/15 02/12/17 History [humaLOG Mix 75-25 Kwikpen] Atorvastatin [Lipitor] 10 mg PO HS 09/05/16 02/12/17 History Citalopram Hydrobromide [CeleXA] 20 mg PO DAILY 09/05/16 02/12/17 History Cyclobenzaprine [Flexeril] 10 mg PO HS PRN 09/05/16 02/12/17 History HYDROcodone/APAP 7.5-325MG [[place] 1 tab PO Q6HR 09/05/16 02/12/17 History 7.5-325] Metoclopramide [Reglan] 10 mg PO QID 09/05/16 02/12/17 History Ondansetron Odt [Zofran ODT] 4 mg SUBLINGUAL Q12H PRN 09/05/16 02/12/17 History Lisinopril [Zestril] 10 mg PO DAILY 12/20/16 02/12/17 History Nitroglycerin 0.4 mg SL Q5M PRN 12/20/16 02/12/17 History Aspirin 81 mg PO DAILY 02/12/17 02/12/17 History Carvedilol [Coreg] 6.25 mg PO BID 02/12/17 02/12/17 History Ergocalciferol [Vitamin D2] 50,000 unit PO Q7D 02/12/17 02/12/17 History Allergies Allergy/AdvReac Type Severity Reaction Status Date / Time No Known Allergies Allergy Verified 02/12/17 09:55 Physical Exam Vitals: Vital Signs Temp Pulse Pulse Resp BP BP Pulse Ox 02/13/17 08:18 96 02/13/17 08:00 99.6 F 76 16 200/89 93 L 02/13/17 03:53 98.6 F 78 20 176/76 96 02/13/17 00:00 76 18 179/84 97 02/12/17 20:15 97.7 F 73 18 174/74 97 02/12/17 16:00 71 16 182/91 98 02/12/17 14:54 97.7 F 78 16 158/74 93 L 02/12/17 09:52 99.0 F 76 20 185/88 98 Intake and Output 02/12/17 02/13/17 02/13/17 22:59 06:59 14:59 Intake Total 0 0 Output Total 400 400 Balance -400 -400 0 Intake: Oral 0 0 Output: Urine 400 400 Other: Weight 138.3 kg 137.2 kg PHYSICAL EXAMINATION: HEENT: Head is atraumatic, normocephalic. Pupils equal, round. Neck is supple. There is no elevated jugular venous pressure. HEART EXAMINATION: Heart S1, S2 normal. No murmur or gallop heard. CHEST EXAMINATION: Lungs are clear to auscultation and precussion. No chest wall tenderness is noted on palpation or with deep breathing. ABDOMEN: Soft, obese, nontender. Bowel sounds are heard. No organomegaly noted. EXTREMITIES: 2+ peripheral pulses with no evidence of peripheral edema and no calf tenderness noted. Dressing in place to the left lower extremity. NEUROLOGIC patient is awake, alert and oriented -3. . Results 02/13/17 06:32 02/12/17 10:47 Cardiac Enzymes 02/12/17 02/12/17 02/12/17 Range/Units 10:47 10:47 17:00 AST 25 (17-59) U/L CK-MB (CK-2) 2.3 2.1 (0.0-2.4) ng/mL Troponin I <0.012 <0.012 (0.000-0.034) ng/mL 02/12/17 Range/Units 22:30 AST (17-59) U/L CK-MB (CK-2) 1.6 (0.0-2.4) ng/mL Troponin I <0.012 (0.000-0.034) ng/mL Coagulation 02/12/17 Range/Units 10:47 PT 10.6 (9.0-12.0) sec APTT 21.4 L (22.0-30.0) sec Lipids 02/13/17 Range/Units 06:32 Triglycerides 173 H (<150) mg/dL Cholesterol 159 (<200) mg/dL HDL Cholesterol 38 L (40-60) mg/dL CBC 02/12/17 02/13/17 Range/Units 10:47 06:32 WBC 10.4 8.7 (3.8-10.6) k/uL RBC 4.67 4.03 L (4.30-5.90) m/uL Hgb 13.4 11.7 L (13.0-17.5) gm/dL Hct 41.7 35.3 L (39.0-53.0) % Plt Count 257 235 (150-450) k/uL Comprehensive Metabolic Panel 02/12/17 Range/Units 10:47 Sodium 142 (137-145) mmol/L Potassium 5.9 H (3.5-5.1) mmol/L Chloride 106 (98-107) mmol/L Carbon Dioxide 24 (22-30) mmol/L BUN 15 (9-20) mg/dL Creatinine 0.91 (0.66-1.25) mg/dL Glucose 277 H (74-99) mg/dL Calcium 10.0 (8.4-10.2) mg/dL AST 25 (17-59) U/L ALT 24 (21-72) U/L Alkaline Phosphatase 95 (38-126) U/L Total Protein 8.6 H (6.3-8.2) g/dL Albumin 5.2 H (3.5-5.0) g/dL Current Medications Generic Name Dose Route Start Last Admin Trade Name Freq PRN Reason Stop Dose Admin Acetaminophen 650 mg 02/12/17 13:13 Tylenol Tab PO Q6HR PRN Mild Pain or Fever > 100.5 Hydrocodone Bitart/Acetaminophen 1 each 02/13/17 00:00 02/13/17 06:31 [place] 7.5-325 PO Not Given Q6HR [facility] Alprazolam 0.25 mg 02/12/17 22:19 Xanax PO TID PRN Anxiety Atorvastatin Calcium 10 mg 02/13/17 21:00 Lipitor PO HS [facility] Carvedilol 6.25 mg 02/13/17 09:00 Coreg PO BID [facility] Citalopram Hydrobromide 20 mg 02/13/17 09:00 Celexa PO DAILY [facility] Cyclobenzaprine HCl 10 mg 02/12/17 22:17 Flexeril PO HS PRN Muscle Spasm Ergocalciferol 50,000 unit 02/18/17 09:00 Vitamin D2 PO Q7D [facility] Hydromorphone HCl 0.5 mg 02/12/17 22:19 02/13/17 04:40 Dilaudid IVP 0.5 mg Q6HR PRN Administration Severe Pain Insulin Human Lispro 0 unit 02/12/17 21:00 02/13/17 06:42 Humalog SQ 5 unit [facility] Administration Protocol Insulin Lispro Protam/Lispro Human 30 unit 02/13/17 09:00 Humalog Mix 75-25 Vial SQ BID [facility] Metoclopramide HCl 10 mg 02/12/17 18:00 02/13/17 06:42 Reglan IVP 10 mg Q6HR [facility] Administration Naloxone HCl 0.2 mg 02/12/17 13:13 Narcan IV Q2M PRN Opioid Reversal Nitroglycerin 0.4 mg 02/12/17 13:18 Nitrostat SUBLINGUAL Q5M PRN Chest Pain Ondansetron HCl 4 mg 02/12/17 13:13 02/13/17 02:07 Zofran IVP 4 mg Q8HR PRN Administration Nausea And Vomiting Pantoprazole Sodium 40 mg 02/12/17 22:30 02/12/17 23:25 Protonix IVP 40 mg BID [facility] Administration Temazepam 15 mg 02/12/17 22:19 Restoril PO HS PRN Insomnia Intake and Output 02/12/17 02/13/17 02/13/17 22:59 06:59 14:59 Intake Total 0 0 Output Total 400 400 Balance -400 -400 0 Intake: Oral 0 0 Output: Urine 400 400 Other: Weight 138.3 kg 137.2 kg 02/13/17 06:32 02/12/17 10:47 EKG Interpretations (text) EKG shows normal sinus rhythm with no acute changes. Assessment and Plan Plan: Assessment and plan #1 symptoms of nausea and vomiting, possible gastroparesis, GI consulted #2 atypical chest discomfort troponins negative 3. EKG shows normal sinus rhythm with no acute changes. According to the patient, he had a stress test performed in August in [place] area we will attempt to get records of this. #3 diabetes #4 hypertension, accelerated at this time # 5 hyperlipidemia #6 obstructive sleep apnea #7 obesity #8 history of multiple esophageal surgeries secondary to esophageal perforation #9 chest wall cellulitis #10 history of bilateral DVT #11 history of right second toe osteomyelitis currently being followed at the wound center. #12 history of MRSA # 13 hyperkalemia Plan We will obtain an echocardiogram with Doppler study. Optimize blood pressure control. We will also attempt to obtain records of recent stress test performed in August of last year, if we are unable to, once his patient's GI symptoms resolved he may need to undergo stress testing as an outpatient. DNP note has been reviewed, I agree with a documented findings and plan of care. Patient was seen and examined. <Shadi Barrera - Last Filed: 02/13/17 17:50> Physical Exam Vitals: Vital Signs Temp Pulse Resp BP Pulse Ox 02/13/17 15:25 75 14 185/85 95 02/13/17 12:00 98.4 F 72 18 189/89 97 02/13/17 08:18 96 02/13/17 08:00 99.6 F 76 16 200/89 93 L 02/13/17 03:53 98.6 F 78 20 176/76 96 02/13/17 00:00 76 18 179/84 97 02/12/17 20:15 97.7 F 73 18 174/74 97 Intake and Output 02/13/17 02/13/17 02/13/17 06:59 14:59 22:59 Intake Total 0 0 Output Total 400 Balance -400 0 0 Intake: Oral 0 0 Output: Urine 400 Other: Weight 137.2 kg 137.2 kg Patient Weight 02/14/17 06:59 Weight 137.2 kg Results 02/13/17 06:32 02/12/17 10:47 Cardiac Enzymes 02/12/17 02/12/17 Range/Units 17:00 22:30 CK-MB (CK-2) 2.1 1.6 (0.0-2.4) ng/mL Troponin I <0.012 <0.012 (0.000-0.034) ng/mL Lipids 02/13/17 Range/Units 06:32 Triglycerides 173 H (<150) mg/dL Cholesterol 159 (<200) mg/dL HDL Cholesterol 38 L (40-60) mg/dL CBC 02/13/17 Range/Units 06:32 WBC 8.7 (3.8-10.6) k/uL RBC 4.03 L (4.30-5.90) m/uL Hgb 11.7 L (13.0-17.5) gm/dL Hct 35.3 L (39.0-53.0) % Plt Count 235 (150-450) k/uL Current Medications Generic Name Dose Route Start Last Admin Trade Name Freq PRN Reason Stop Dose Admin Acetaminophen 650 mg 02/12/17 13:13 Tylenol Tab PO Q6HR PRN Mild Pain or Fever > 100.5 Hydrocodone Bitart/Acetaminophen 1 each 02/13/17 15:30 [place] 7.5-325 PO Q6H PRN Moderate Pain Alprazolam 0.25 mg 02/12/17 22:19 Xanax PO TID PRN Anxiety Atorvastatin Calcium 10 mg 02/13/17 21:00 Lipitor PO HS [facility] Carvedilol 25 mg 02/13/17 21:00 Coreg PO BID [facility] Citalopram Hydrobromide 20 mg 02/13/17 09:00 02/13/17 09:31 Celexa PO 20 mg DAILY [facility] Administration Clonidine 0.1 mg 02/13/17 16:46 Catapres PO Q4HR PRN Hypertension Clonidine 0.1 mg 02/13/17 21:00 Catapres PO BID [facility]AAKOV Cyclobenzaprine HCl 10 mg 02/12/17 22:17 Flexeril PO HS PRN Muscle Spasm Ergocalciferol 50,000 unit 02/18/17 09:00 Vitamin D2 PO Q7D [facility] Hydralazine HCl 10 mg 02/13/17 16:46 02/13/17 17:31 Apresoline IVP 10 mg Q4HR PRN Administration Blood Pressure - High Hydromorphone HCl 0.5 mg 02/13/17 11:59 02/13/17 15:16 Dilaudid IVP 0.5 mg Q4HR PRN Administration moderate-severe Pain Insulin Human Lispro 0 unit 02/12/17 21:00 02/13/17 17:30 Humalog SQ 4 unit ACHS [facility]AAKOV Administration Protocol Insulin Lispro Protam/Lispro Human 30 unit 02/13/17 09:00 02/13/17 09:30 Humalog Mix 75-25 Vial SQ 30 unit BID [facility] Administration Metoclopramide HCl 10 mg 02/12/17 18:00 02/13/17 17:30 Reglan IVP 10 mg Q6HR [facility] Administration Naloxone HCl 0.2 mg 02/12/17 13:13 Narcan IV Q2M PRN Opioid Reversal Nitroglycerin 0.4 mg 02/12/17 13:18 Nitrostat SUBLINGUAL Q5M PRN Chest Pain Nitroglycerin 1 inch 02/13/17 18:00 Nitro-Bid Oint TOPICAL Q6HR [facility] Ondansetron HCl 4 mg 02/12/17 13:13 02/13/17 09:31 Zofran IVP 4 mg Q8HR PRN Administration Nausea And Vomiting Pantoprazole Sodium 40 mg 02/12/17 22:30 02/13/17 09:30 Protonix IVP 02/13/17 23:58 40 mg BID [facility] Administration Pantoprazole Sodium 40 mg 02/14/17 09:00 Protonix PO BID [facility] Temazepam 15 mg 02/12/17 22:19 Restoril PO HS PRN Insomnia Intake and Output 02/13/17 02/13/17 02/13/17 06:59 14:59 22:59 Intake Total 0 0 Output Total 400 Balance -400 0 0 Intake: Oral 0 0 Output: Urine 400 Other: Weight 137.2 kg 137.2 kg Patient Weight 02/14/17 06:59 Weight 137.2 kg 02/13/17 06:32 02/12/17 10:47
[2017-02-13] MEDS ORDERED: NITROGLYCERIN OINT 1 INCH/GM PACKET TOPICAL STA (10:14)
[2017-02-13] MEDS ORDERED: NITROGLYCERIN OINT 1 INCH/GM PACKET TOPICAL SCH (12:00)
[2017-02-13 12:38] LABS: Glucose,Whole Blood 218 mg/dL (75-99)
[2017-02-13] MEDS ORDERED: cloNIDine HCL 0.1 MG TAB PO PRN (16:46)
[2017-02-13 17:06] LABS: Glucose,Whole Blood 202 mg/dL (75-99)
[2017-02-13] MEDS: hydrALAZINE HCL 20 MG/ML 1 ML VIAL IVP PRN ×2 (17:31→23:38)
[2017-02-13] MEDS ORDERED: cloNIDine 0.1 MG/24HR PATCH 1 PATCH PATCH TRANSDERM SCH (19:15)
[2017-02-13] MEDS: NITROGLYCERIN OINT 1 INCH/GM PACKET TOPICAL SCH ×2 (19:43→23:39)
--- NOTE | 2017-02-13 19:47 | PN ---
DATE OF SERVICE: 02/13/2017 This 41 -year-old gentleman who was admitted with incessant nausea and vomiting, unable to keep anything down. The patient suspected to have nonbleeding peptic ulcer disease or gastroparesis. Patient is being closely monitored. Patient also had complicated history including multiple esophageal surgeries perforation. No chest pain, no palpitations. No fever. REVIEW OF SYSTEMS: CARDIOVASCULAR: No angina. RESPIRATORY: As mentioned earlier. GASTROINTESTINAL: As mentioned earlier. GENITOURINARY: No dysuria. CENTRAL NERVOUS SYSTEM: No numbness, weakness. On exam, alert and oriented x3, pulse 72, blood pressure 189/90, respirations 18, temperature 98.4, pulse ox 97% on room air. HEENT: Conjunctivae normal. NECK: No jugular venous distention. RESPIRATORY: Breath sounds diminished at the bases. Bilateral scattered rhonchi and crackles. CARDIOVASCULAR: S1, S2. ABDOMEN: Soft. Mild diffuse tenderness present. No guarding. No rigidity. No mass palpable. LEGS: No edema. No swelling. CENTRAL NERVOUS SYSTEM: No focal deficits. Current medications are reviewed and include: 1. Tylenol 650 q6h p.r.n. 2. Mchenry 7.5. 3. Lipitor. 4. Coreg 6.25 b.i.d. 5. Celexa. 6. Flexeril. 7. Vitamin D2. 8. Dilaudid. 9. Reglan. 10. Narcan. 11. Nitrostat. 12. Zofran. 13. Protonix. 14. Restoril. LABS: WBC 8.7, hemoglobin 11.7. Labs are noted. ASSESSMENT: 1. Incessant nausea, vomiting, possible peptic ulcer disease or gastroparesis with unable to keeping anything down. 2. Hypertensive urgency and accelerated hypertension. 3. Diabetes mellitus type 2. 4. Hyperkalemia. 5. Dehydration, present on admission because of incessant vomiting. 6. History of diabetes mellitus type 2. 7. History of hypertension. 8. Hyperlipidemia. 9. Obstructive sleep apnea. 10. Obesity with body mass index of 40.2. 11. 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 12. History feeding tube. 13. History of chest wall cellulitis. 14. History of bilateral deep venous thromboses. 15. History of right toe osteomyelitis. 16. Seizure as a child. 17. History of Methicillin-resistant Staph aureus. 18. History of tonsillectomy. 19. History degenerative joint disease. 20. History of gastroesophageal reflux disease. 21. FULL CODE. RECOMMENDATIONS AND DISCUSSION: In this 41 -year-old gentleman who presented with multiple complex medical issues, we will monitor the patient closely. Continue the current medications, continue symptomatic treatment. IV proton pump inhibitors. The patient unable to keep anything down. I would recommend gastroenterology consultation post endoscopy. The patient will require hospitalization more than two nights to evaluate and treat the above-mentioned medical issues as mentioned earlier. Multiple medical issues are rather complex because of the fact the patient is unable to keep multiple medications, keep anything down. See orders for further details. Monitor blood sugars closely. Prognosis guarded. Further recommendations to follow. MTDD
[2017-02-13] MEDS: CARVEDILOL 12.5 MG TAB PO SCH (20:43)
[2017-02-13] MEDS: ATORVASTATIN 10 MG TAB PO SCH (20:43)
[2017-02-13 20:45] LABS: Glucose,Whole Blood 193 mg/dL (75-99)
[2017-02-13] MEDS ORDERED: cloNIDine HCL 0.1 MG TAB PO SCH (21:00)
[2017-02-14 02:16] LABS: Glucose,Whole Blood 172 mg/dL (75-99)
[2017-02-14] MEDS: HYDROmorphone 1 MG/ML 1 ML SYRINGE IVP PRN ×5 (04:08→20:02)
[2017-02-14] MEDS: ONDANSETRON 4 MG/2 ML VIAL IVP PRN (04:08)
[2017-02-14] MEDS: hydrALAZINE HCL 20 MG/ML 1 ML VIAL IVP PRN ×2 (05:18→20:35)
[2017-02-14 05:39] LABS: Glucose,Whole Blood 185 mg/dL (75-99)
[2017-02-14] MEDS: METOCLOPRAMIDE 5 MG/ML 2 ML VIAL IVP SCH ×3 (06:56→18:39)
[2017-02-14] MEDS: INSULIN LISPRO (humaLOG) 300 UNIT/3 ML VIAL SQ SCH ×4 (06:57→22:19)
[2017-02-14 07:14] LABS: Basophils # (A) 0.1 k/uL (0-0.2); Basophils % (A) 1 %; CH 28.9; Eosinophils # (A) 0.1 k/uL (0-0.7); Eosinophils % (A) 1 %; HCT 38.9 % (39.0-53.0); HDW 2.95; HGB 12.8 gm/dL (13.0-17.5); Luc # (Auto) 0.09; Luc % (Auto) 1; Lymphocytes # (A) 1.8 k/uL (1.0-4.8); Lymphocytes % (A) 15 %; MCH 28.9 pg (25.0-35.0); MCHC 32.8 g/dL (31.0-37.0); Mean Platelet Volume 7.3; Monocytes # (A) 0.4 k/uL (0-1.0); Monocytes % (A) 3 %; Neutrophils # (A) 9.9 k/uL (1.3-7.7); Neutrophils % (A) 80 %; RBC 4.43 m/uL (4.30-5.90); RDW 13.7 % (11.5-15.5); WBC 12.3 k/uL (3.8-10.6); WBC (Perox) 12.65
[2017-02-14] MEDS: NITROGLYCERIN OINT 1 INCH/GM PACKET TOPICAL SCH ×3 (07:29→17:24)
[2017-02-14] MEDS: CITALOPRAM HYDROBROMIDE 20 MG TAB PO SCH (07:50)
[2017-02-14] MEDS: PANTOPRAZOLE 40 MG TABLET PO SCH ×2 (07:50→22:19)
[2017-02-14] MEDS: CARVEDILOL 12.5 MG TAB PO SCH ×2 (07:50→22:19)
[2017-02-14 08:33] LABS: Anion Gap 18 mmol/L; Blood Urea Nitrogen 22 mg/dL (9-20); Calcium 9.8 mg/dL (8.4-10.2); Carbon Dioxide 19 mmol/L (22-30); Chloride 104 mmol/L (98-107); Glucose 198 mg/dL (74-99); Non-African American GFR(MDRD) >60 (>60 ml/min/1.73 sqM); Potassium 4.6 mmol/L (3.5-5.1); Sodium 141 mmol/L (137-145)
--- NOTE | 2017-02-14 08:58 | P.GSCN ---
<Ruby Choi - Last Filed: 02/14/17 08:48> History of Present Illness Consult date: 02/14/17 Reason for Consult: Wound to left foot, total contact cast present. Requesting physician: Miguel Angel Benítez History of present illness: This 41-year-old male patient with a previous medical history of diabetes, hypertension, hyperlipidemia, sleep apnea, multiple surgeries for esophageal damage, left chest cellulitis, seizures, and wound to left foot presented to the emergency room with generalized abdominal pain and nausea. He denies any history of fever, chills, sick contacts. He does currently endorse a headache which was not present on admission. He states that nothing we have given him or done from him has taken his abdominal pain or nausea away. Dr. Coles was consulted for the wound he has on his left foot with presence of total contact cast as this gentleman has been seen in the wound care center. Review of Systems 14 point review systems was completed and was negative except as noted in the HPI. 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 no cpap used, hx blood clot mike arms. infection in rt second toe osteomyelitis(pt stated toe was amputated). " loose stools "seizure as infant, wound lt great foot/goes to [facility] on wed History of Any Multi-Drug Resistant Organisms: MRSA Year Discovered:: 02/28/16, 06/17/15 lt chest cellulitis MDRO Source:: rt second toe Past Surgical History: Tonsillectomy Additional Past Surgical History / Comment(s): bronchial cyst removed, esophagus clipped and removed, stomach stretching, pt reports 35 different procedures on esophogus, amputation rt great toe and toe next to great toe, picc line 03-03-16-since removed, i&d chest wound Past Anesthesia/Blood Transfusion Reactions: No Reported Reaction Past Psychological History: No Psychological Hx Reported Smoking Status: Never smoker Past Alcohol Use History: Occasional Past Drug Use History: None Reported - Past Family History Father Family Medical History: Diabetes Mellitus Additional Family Medical History / Comment(s): ETOH Mother Family Medical History: No Reported History Medications and Allergies Home Medications Medication Instructions Recorded Confirmed Type Insulin Lispro Protamin/Lispro 30 unit SQ BID 06/14/15 02/14/17 History [humaLOG Mix 75-25 Kwikpen] Atorvastatin [Lipitor] 10 mg PO HS 09/05/16 02/14/17 History Citalopram Hydrobromide [CeleXA] 20 mg PO DAILY 09/05/16 02/14/17 History Cyclobenzaprine [Flexeril] 10 mg PO HS PRN 09/05/16 02/14/17 History HYDROcodone/APAP 7.5-325MG [[place] 1 tab PO Q6HR 09/05/16 02/14/17 History 7.5-325] Metoclopramide [Reglan] 10 mg PO QID 09/05/16 02/14/17 History Ondansetron Odt [Zofran ODT] 4 mg SUBLINGUAL Q12H PRN 09/05/16 02/14/17 History Lisinopril [Zestril] 10 mg PO DAILY 12/20/16 02/14/17 History Nitroglycerin 0.4 mg SL Q5M PRN 12/20/16 02/14/17 History Aspirin 81 mg PO DAILY 02/12/17 02/14/17 History Carvedilol [Coreg] 6.25 mg PO BID 02/12/17 02/14/17 History Ergocalciferol [Vitamin D2] 50,000 unit PO Q7D 02/12/17 02/14/17 History Allergies Allergy/AdvReac Type Severity Reaction Status Date / Time No Known Allergies Allergy Verified 02/14/17 10:21 Surgical - Exam Vital Signs Temp Pulse Resp BP Pulse Ox 99.0 F 76 20 185/88 98 02/12/17 09:52 02/12/17 09:52 02/12/17 09:52 02/12/17 09:52 02/12/17 09:52 - General well developed, well nourished, no distress, obese - Eyes PERRL, normal ocular movement - ENT no hearing loss - Neck trachea midline - Respiratory Currently on room air with oxygen saturation 95%. normal expansion, normal respiratory effort, clear to auscultation - Cardiovascular Normal sinus rhythm on telemetry. Rhythm: regular Heart Sounds: normal: S1, S2 - Abdomen Abdomen: soft, tender, bowel sounds, surgical scars - Genitourinary Deferred - Rectum Deferred - Integumentary no rash - Neurologic normal coordination, normal sensation - Psychiatric oriented to time, oriented to person, oriented to place, speech is normal, memory intact Results - Labs 02/14/17 06:52 02/14/17 06:52 Abnormal Lab Results - Last 24 Hours (Table) 02/12/17 02/13/17 02/13/17 Range/Units 12:35 12:32 17:03 WBC (3.8-10.6) k/uL Hgb (13.0-17.5) gm/dL Hct (39.0-53.0) % Neutrophils # (1.3-7.7) k/uL Carbon Dioxide (22-30) mmol/L BUN (9-20) mg/dL Glucose (74-99) mg/dL POC Glucose (mg/dL) 218 H 202 H (75-99) mg/dL Urine Opiates Screen Detected H (NotDetected) Urine Cocaine Screen Detected H (NotDetected) 02/13/17 02/14/17 02/14/17 Range/Units 20:44 02:14 05:37 WBC (3.8-10.6) k/uL Hgb (13.0-17.5) gm/dL Hct (39.0-53.0) % Neutrophils # (1.3-7.7) k/uL Carbon Dioxide (22-30) mmol/L BUN (9-20) mg/dL Glucose (74-99) mg/dL POC Glucose (mg/dL) 193 H 172 H 185 H (75-99) mg/dL Urine Opiates Screen (NotDetected) Urine Cocaine Screen (NotDetected) 02/14/17 02/14/17 Range/Units 06:52 06:52 WBC 12.3 H (3.8-10.6) k/uL Hgb 12.8 L (13.0-17.5) gm/dL Hct 38.9 L (39.0-53.0) % Neutrophils # 9.9 H (1.3-7.7) k/uL Carbon Dioxide 19 L (22-30) mmol/L BUN 22 H (9-20) mg/dL Glucose 198 H (74-99) mg/dL POC Glucose (mg/dL) (75-99) mg/dL Urine Opiates Screen (NotDetected) Urine Cocaine Screen (NotDetected) Diabetes panel 02/14/17 Range/Units 06:52 Sodium 141 (137-145) mmol/L Potassium 4.6 (3.5-5.1) mmol/L Chloride 104 (98-107) mmol/L Carbon Dioxide 19 L (22-30) mmol/L BUN 22 H (9-20) mg/dL Creatinine 0.92 (0.66-1.25) mg/dL Glucose 198 H (74-99) mg/dL Calcium 9.8 (8.4-10.2) mg/dL Calcium panel 02/14/17 Range/Units 06:52 Calcium 9.8 (8.4-10.2) mg/dL Pituitary panel 02/14/17 Range/Units 06:52 Sodium 141 (137-145) mmol/L Potassium 4.6 (3.5-5.1) mmol/L Chloride 104 (98-107) mmol/L Carbon Dioxide 19 L (22-30) mmol/L BUN 22 H (9-20) mg/dL Creatinine 0.92 (0.66-1.25) mg/dL Glucose 198 H (74-99) mg/dL Calcium 9.8 (8.4-10.2) mg/dL Adrenal panel 02/14/17 Range/Units 06:52 Sodium 141 (137-145) mmol/L Potassium 4.6 (3.5-5.1) mmol/L Chloride 104 (98-107) mmol/L Carbon Dioxide 19 L (22-30) mmol/L BUN 22 H (9-20) mg/dL Creatinine 0.92 (0.66-1.25) mg/dL Glucose 198 H (74-99) mg/dL Calcium 9.8 (8.4-10.2) mg/dL Assessment and Plan (1) Abdominal pain Status: Acute (2) Hypertension Status: Acute (3) Nausea & vomiting Status: Acute (4) Diabetic ulcer of left foot associated with type 2 diabetes mellitus Status: Acute (5) Diabetes Status: Chronic Plan: The patient was seen and examined. He is in no acute distress. He currently has a total contact cast on his left lower extremity which he states has gotten wet in the shower despite putting a bag over the cast. He was to have a follow- up appointment in the wound care center with Dr. Coles today however he was admitted to the hospital. Will discuss the case with Dr. Coles and develop a plan of care for his left lower extremity wound. Thank you Dr. Benítez for this consult. We will defer to review the care of your patient. Time with Patient: Greater than 30 <Rikki Coles - Last Filed: 02/14/17 10:56> Surgical - Exam Osteopathic Statement: *. No significant issues noted on an osteopathic structural exam other than those noted in the History and Physical/Consult. Vital Signs Temp Pulse Resp BP Pulse Ox 99.0 F 76 20 185/88 98 02/12/17 09:52 02/12/17 09:52 02/12/17 09:52 02/12/17 09:52 02/12/17 09:52 Results - Labs 02/14/17 06:52 02/14/17 06:52 Abnormal Lab Results - Last 24 Hours (Table) 02/12/17 02/13/17 02/13/17 Range/Units 12:35 12:32 17:03 WBC (3.8-10.6) k/uL Hgb (13.0-17.5) gm/dL Hct (39.0-53.0) % Neutrophils # (1.3-7.7) k/uL Carbon Dioxide (22-30) mmol/L BUN (9-20) mg/dL Glucose (74-99) mg/dL POC Glucose (mg/dL) 218 H 202 H (75-99) mg/dL Urine Opiates Screen Detected H (NotDetected) Urine Cocaine Screen Detected H (NotDetected) 02/13/17 02/14/17 02/14/17 Range/Units 20:44 02:14 05:37 WBC (3.8-10.6) k/uL Hgb (13.0-17.5) gm/dL Hct (39.0-53.0) % Neutrophils # (1.3-7.7) k/uL Carbon Dioxide (22-30) mmol/L BUN (9-20) mg/dL Glucose (74-99) mg/dL POC Glucose (mg/dL) 193 H 172 H 185 H (75-99) mg/dL Urine Opiates Screen (NotDetected) Urine Cocaine Screen (NotDetected) 02/14/17 02/14/17 Range/Units 06:52 06:52 WBC 12.3 H (3.8-10.6) k/uL Hgb 12.8 L (13.0-17.5) gm/dL Hct 38.9 L (39.0-53.0) % Neutrophils # 9.9 H (1.3-7.7) k/uL Carbon Dioxide 19 L (22-30) mmol/L BUN 22 H (9-20) mg/dL Glucose 198 H (74-99) mg/dL POC Glucose (mg/dL) (75-99) mg/dL Urine Opiates Screen (NotDetected) Urine Cocaine Screen (NotDetected) Diabetes panel 02/14/17 Range/Units 06:52 Sodium 141 (137-145) mmol/L Potassium 4.6 (3.5-5.1) mmol/L Chloride 104 (98-107) mmol/L Carbon Dioxide 19 L (22-30) mmol/L BUN 22 H (9-20) mg/dL Creatinine 0.92 (0.66-1.25) mg/dL Glucose 198 H (74-99) mg/dL Calcium 9.8 (8.4-10.2) mg/dL Calcium panel 02/14/17 Range/Units 06:52 Calcium 9.8 (8.4-10.2) mg/dL Pituitary panel 02/14/17 Range/Units 06:52 Sodium 141 (137-145) mmol/L Potassium 4.6 (3.5-5.1) mmol/L Chloride 104 (98-107) mmol/L Carbon Dioxide 19 L (22-30) mmol/L BUN 22 H (9-20) mg/dL Creatinine 0.92 (0.66-1.25) mg/dL Glucose 198 H (74-99) mg/dL Calcium 9.8 (8.4-10.2) mg/dL Adrenal panel 02/14/17 Range/Units 06:52 Sodium 141 (137-145) mmol/L Potassium 4.6 (3.5-5.1) mmol/L Chloride 104 (98-107) mmol/L Carbon Dioxide 19 L (22-30) mmol/L BUN 22 H (9-20) mg/dL Creatinine 0.92 (0.66-1.25) mg/dL Glucose 198 H (74-99) mg/dL Calcium 9.8 (8.4-10.2) mg/dL Assessment and Plan Plan: This patient is well known to me. We are treating his Chambers grade 2 ulceration in Wound Center. We will arrange to have his total contact cast changed in the wound center. He is to remain nonweightbearing on this left foot. We will see him back again in Wound Center next Sunday.
[2017-02-14] MEDS: INSULIN NPL/INSULIN LISPRO 100 UNIT/ML 10 ML VIAL (Humalog 75/25) SQ SCH ×2 (09:04→22:19)
--- NOTE | 2017-02-14 10:34 | ECHOF ---
Referral Reason:chest pain MEASUREMENTS -------- HEIGHT: 180.3 cm WEIGHT: 137.0 kg BP: 200/89 IVSd: 1.4 cm (0.6 - 1.1) LVIDd: 4.4 cm (3.9 - 5.3) LVPWd: 1.4 cm (0.6 - 1.1) IVSs: 2.0 cm LVIDs: 1.8 cm LVPWs: 1.7 cm Ao Diam: 3.0 cm (2.0 - 3.7) AV Cusp: 1.8 cm (1.5 - 2.6) LA Diam: 3.8 cm (2.7 - 3.8) MV EXCURSION: 20.694 mm (> 18.000) MV EF SLOPE: 230 mm/s (70 - 150) EPSS: 2.4 cm MV E Marcello: 1.31 m/s MV A Marcello: 0.97 m/s MV E/A Ratio: 1.35 RAP: 5.00 mmHg RVSP: 11.16 mmHg FINDINGS -------- Sinus rhythm. This was a technically difficult study with suboptimal views. There is moderate concentric left ventricular hypertrophy. Overall left ventricular systolic function is normal with, an EF between 55 - 60 %. The right ventricle is normal in size and function. The left atrium is normal in size. The right atrium is normal in size. The aortic valve is trileaflet, and appears structurally normal. No aortic stenosis or regurgitation. The mitral valve leaflets are mildly thickened. There is trace mitral regurgitation. Trace tricuspid regurgitation present. The right ventricular systolic pressure, as measured by Doppler, is 11.16mmHg. Pulmonic valve appears structurally normal. The aortic root, ascending aorta and aortic arch are normal. The pericardium is normal. CONCLUSIONS -------- 1. Sinus rhythm. 2. There is trace mitral regurgitation. 3. Trace tricuspid regurgitation present. 4. The right ventricular systolic pressure, as measured by Doppler, is 11.16mmHg. 5. Pulmonic valve appears structurally normal. 6. The aortic root, ascending aorta and aortic arch are normal. 7. The pericardium is normal. 8. This was a technically difficult study with suboptimal views. 9. There is moderate concentric left ventricular hypertrophy. 10. Overall left ventricular systolic function is normal with, an EF between 55 - 60 %. 11. The right ventricle is normal in size and function. 12. The left atrium is normal in size. 13. The right atrium is normal in size. 14. The aortic valve is trileaflet, and appears structurally normal. No aortic stenosis or regurgitation. 15. The mitral valve leaflets are mildly thickened. ONLINE JOURNALIST: Ruby Grewal RDCS
[2017-02-14 12:23] LABS: Glucose,Whole Blood 219 mg/dL (75-99)
[2017-02-14] MEDS ORDERED: MIDAZOLAM 2 MG/2 ML VIAL ONE (14:52)
[2017-02-14] MEDS ORDERED: fentaNYL (PF) 50 MCG/ML 2 ML AMP ONE (14:52)
[2017-02-14] MEDS ORDERED: LIDOCAINE 1% INJ 10MG/ML (20 ML MDV) ONE (14:52)
[2017-02-14] MEDS ORDERED: GLYCOPYRROLATE 0.2 MG/ML 2 ML VIAL ONE (14:52)
[2017-02-14] MEDS ORDERED: PROPOFOL 10 MG/ML 20 ML VIAL IV ONE (14:52)
[2017-02-14] MEDS ORDERED: LACTATED RINGERS 1,000 ML IV ONE (15:01)
--- NOTE | 2017-02-14 15:37 | P.PCN ---
Date of Procedure: 02/14/17 Preoperative Diagnosis: Postoperative Diagnosis: Procedure(s) Performed: Procedure: Esophagogastroduodenoscopy and biopsy. Preoperative diagnosis: Nausea and vomiting. Postoperative diagnosis: 1. S/P esophagectomy with gastric pull-through. 2. Mild inflammation at the anastomosis with the cervical esophageal remnant. 3. Mild antral gastritis. 4. Multiple biopsies obtained from the small intestine, antrum and the anastomosis area in the esophagus. Operation and sedation: Were provided by anesthesia. Brief clinical history: The patient is a 41-year-old male with a past medical history of morbid obesity, diabetes mellitus, DVT, obstructive sleep apnea, bronchogenic cyst status post multiple surgeries with complications requiring multiple plastic surgeries including flap and subsequent esophageal perforation requiring esophagectomy with anterior gastric pull-through, left foot Chambers ulcer, and MRSA, presented with a 2 day history of epigastric pain, nausea and vomiting. Denies hematemesis, hematochezia or melena. Hemoglobin 13.4 on admission, dropped to 11.7. No history of EGD. Had multiple dry heaves over the last 48 hours with small bilious emesis. He takes Reglan at home but on no PPI or H-2 blockers. No alcohol. No excessive usage of aspirin or NSAIDs. The details are summarized in the history and physical and dictated consultation. This evaluation is to assess for peptic ulcer disease or other pathology related to his surgeries. Procedure: With the patient on his left lateral decubitus position and after informed consent and adequate sedation, I passed the Olympus-GIF 160 video upper endoscope through the cricopharyngeus. The cervical esophageal remnant was noted and there was localized erythema and an isolated erosion at the anastomotic site, but there were no ulcers or strictures. The endoscope was then passed into the stomach which was insufflated with air and inspected in detail. Finally, I passed the endoscope through the pylorus into the duodenum. I examined the small intestine to a good distance and it appeared normal. The stomach showed minimal erythema in the antrum. I obtained biopsies in the small intestine, antrum as well as the anastomotic site in the cervical esophagus remnant then the endoscope was withdrawn. The patient tolerated the procedure well. Plan: The patient was reassured. Will await biopsy results and make further plans based on his course and biopsy results. Will allow diet as tolerated and observe how he does while in the hospital and plan accordingly. Implants: Indications for Procedure: Operative Findings: Description of Procedure:
[2017-02-14 16:48] LABS: Glucose,Whole Blood 207 mg/dL (75-99)
--- NOTE | 2017-02-14 18:50 | PN ---
DATE OF SERVICE: 02/14/2017 This 41-year-old gentleman who was admitted with incessant nausea, vomiting and possible peptic ulcer disease is being closely monitored. Dr. Correa performed EGD which showed esophagectomy with gastric pull-through, mild inflammation at the anastomosis with the cervical esophageal remnant, mild antral gastritis, and multiple biopsies were obtained. At this time the patient is being closely monitored. No fever. No cough. On exam, alert and oriented x3. Pulse is 76, blood pressure 182/87, respiration 18, temperature 97.4, pulse ox 94% on room air. HEENT: Conjunctivae normal. NECK: No jugular venous distention. CARDIOVASCULAR SYSTEM: S1, S2 muffled. RESPIRATORY SYSTEM: Breath sounds diminished at the bases. No rhonchi. No crackles. ABDOMEN: Soft. Mild diffuse discomfort. No guarding. No rigidity. No mass palpable. LEGS: No edema. No swelling. NERVOUS SYSTEM: No focal deficit. LABS: WBC 12.3, hemoglobin 12.8. ASSESSMENT: 1. Incessant nausea and vomiting; possible acute gastritis, status post esophagogastroduodenoscopy. 2. Hypertensive urgency and accelerated hypertension. 3. Diabetes mellitus, type 2. 4. Hyperkalemia. 5. Dehydration, present on admission, because of incessant vomiting. 6. History of diabetes mellitus, type 2. 7. History of hypertension. 8. Hyperlipidemia. 9. Obstructive sleep apnea. 10. Obesity with a body mass index of 40.2. 11. History of multiple esophageal surgeries secondary to esophageal perforation, pull-through after surgery for bronchial cyst. 12. History of feeding tube. 13. History of chest wall cellulitis. 14. History of bilateral deep venous thromboses. 15. History of right toe osteomyelitis. 16. Seizure as a child. 17. History of methicillin-resistant Staphylococcus aureus. 18. History of tonsillectomy. 19. History of degenerative joint disease. 20. History of gastroesophageal reflux disease. 21. FULL CODE. RECOMMENDATIONS AND DISCUSSION: I recommend to continue with the current medications, continue with the monitoring, symptomatic treatment. Dr. Coles has also seen the patient. Symptomatic treatment will be continued. Dr. Correa's input appreciated. Guarded prognosis because of multiple complex medical issues. Will initiate soft diet and check whether food is tolerated. Further recommendations to follow.
[2017-02-14] MEDS: HYDROcodone/APAP 7.5-325MG 1 EACH TAB PO PRN (18:55)
[2017-02-14 20:53] LABS: Glucose,Whole Blood 184 mg/dL (75-99)
[2017-02-14] MEDS: ATORVASTATIN 10 MG TAB PO SCH (22:19)
[2017-02-15] MEDS: NITROGLYCERIN OINT 1 INCH/GM PACKET TOPICAL SCH ×5 (01:12→23:25)
[2017-02-15] MEDS: HYDROmorphone 1 MG/ML 1 ML SYRINGE IVP PRN ×4 (01:12→18:40)
[2017-02-15] MEDS: METOCLOPRAMIDE 5 MG/ML 2 ML VIAL IVP SCH ×6 (01:12→23:20)
[2017-02-15] MEDS: ONDANSETRON 4 MG/2 ML VIAL IVP PRN (03:15)
[2017-02-15 07:41] LABS: Glucose,Whole Blood 161 mg/dL (75-99)
[2017-02-15] MEDS: CARVEDILOL 12.5 MG TAB PO SCH ×2 (08:17→20:52)
[2017-02-15] MEDS: CITALOPRAM HYDROBROMIDE 20 MG TAB PO SCH (08:17)
[2017-02-15] MEDS: INSULIN LISPRO (humaLOG) 300 UNIT/3 ML VIAL SQ SCH ×4 (08:17→20:52)
[2017-02-15] MEDS: PANTOPRAZOLE 40 MG TABLET PO SCH ×2 (08:17→20:52)
[2017-02-15] MEDS: HYDROcodone/APAP 7.5-325MG 1 EACH TAB PO PRN ×3 (08:55→21:04)
[2017-02-15] MEDS: ALPRAZolam 0.25 MG TAB PO PRN ×3 (08:55→23:25)
[2017-02-15] MEDS: INSULIN NPL/INSULIN LISPRO 100 UNIT/ML 10 ML VIAL (Humalog 75/25) SQ SCH ×2 (09:51→20:50)
[2017-02-15 10:13] LABS: Basophils % (A) 1 %; CH 28.6; CHCM 32.6; Eosinophils % (A) 0 %; HCT 34.7 % (39.0-53.0); HDW 2.94; HGB 11.6 gm/dL (13.0-17.5); Luc % (Auto) 1; Lymphocytes # (A) 1.3 k/uL (1.0-4.8); Lymphocytes % (A) 19 %; MCH 29.4 pg (25.0-35.0); MCHC 33.4 g/dL (31.0-37.0); MCV 87.9 fL (80.0-100.0); Mean Platelet Volume 7.5; Monocytes # (A) 0.4 k/uL (0-1.0); Monocytes % (A) 6 %; Neutrophils % (A) 73 %; RBC 3.95 m/uL (4.30-5.90); RDW 13.5 % (11.5-15.5); WBC 6.8 k/uL (3.8-10.6)
[2017-02-15 10:14] LABS: Anion Gap 13 mmol/L; Blood Urea Nitrogen 31 mg/dL (9-20); Calcium 9.2 mg/dL (8.4-10.2); Carbon Dioxide 22 mmol/L (22-30); Chloride 103 mmol/L (98-107); Glucose 187 mg/dL (74-99); Non-African American GFR(MDRD) >60 (>60 ml/min/1.73 sqM); Potassium 4.1 mmol/L (3.5-5.1); Sodium 138 mmol/L (137-145)
--- NOTE | 2017-02-15 11:07 | P.PN ---
Subjective Principal diagnosis: Abdominal pain EGD yesterday for evaluation of abdominal pain with findings of gastritis history of esophagectomy with anterior pull-through. Objective - Vital Signs Vital signs: Vital Signs Temp 99.3 F 02/15/17 07:00 Pulse 72 02/15/17 07:00 Resp 20 02/15/17 07:00 BP 141/72 02/15/17 07:00 Pulse Ox 96 02/15/17 07:00 Intake & Output 02/14/17 02/15/17 02/15/17 18:59 06:59 18:59 Intake Total 340 Balance 340 Weight 135.9 kg Intake: IV 100 Oral 240 Other: # Voids 1 1 - Exam General appearance: The patient is alert, oriented, in no acute distress. HET: Head is normocephalic and atraumatic. Pupils are equal and reactive. Oropharynx is clear without lesions. Neck: Supple without lymphadenopathy. Trachea midline. Heart: S1 S2. Regular rate and rhythm. Lungs: No crackles or wheezes are heard. Abdomen: Soft, mild midabdominal tenderness, nondistended with bowel sounds. No peritoneal signs. No palpable organomegaly or masses. Extremities: Left lower extremity dressing Cleve wrap. Neurological: No focal deficits. Strength and sensation are grossly intact. - Labs CBC & Chem 7: 02/15/17 09:40 02/15/17 09:40 Labs: Abnormal Lab Results - Last 24 Hours (Table) 02/14/17 02/14/17 02/14/17 Range/Units 12:19 16:39 20:52 RBC (4.30-5.90) m/uL Hgb (13.0-17.5) gm/dL Hct (39.0-53.0) % BUN (9-20) mg/dL Glucose (74-99) mg/dL POC Glucose (mg/dL) 219 H 207 H 184 H (75-99) mg/dL 02/15/17 02/15/17 02/15/17 Range/Units 07:33 09:40 09:40 RBC 3.95 L (4.30-5.90) m/uL Hgb 11.6 L (13.0-17.5) gm/dL Hct 34.7 L (39.0-53.0) % BUN 31 H (9-20) mg/dL Glucose 187 H (74-99) mg/dL POC Glucose (mg/dL) 161 H (75-99) mg/dL Assessment and Plan (1) Epigastric pain Narrative/Plan: Status post EGD findings of gastritis history of esophagectomy with anterior pull-through Status: Acute Plan: 1. Supportive measures. 2. Advise surgical opinion if abdominal pain does not improve. 3. Continue GI prophylaxis. We'll follow as needed. Assessment and plan a care discussed with Dr. Correa
[2017-02-15 12:43] LABS: Glucose,Whole Blood 165 mg/dL (75-99)
[2017-02-15] MEDS: SUCRALFATE 1 GM TAB PO SCH ×3 (16:23→20:53)
[2017-02-15 17:09] LABS: Glucose,Whole Blood 147 mg/dL (75-99)
[2017-02-15 20:39] LABS: Glucose,Whole Blood 207 mg/dL (75-99)
[2017-02-15] MEDS: ATORVASTATIN 10 MG TAB PO SCH (20:52)
--- NOTE | 2017-02-15 21:08 | PN ---
DATE OF SERVICE: 02/15/2017 This 41-year-old gentleman who was admitted with incessant nausea, vomiting, possible acute gastritis and also had hypertensive urgency and accelerated hypertension. The patient being closely monitored. The patient's had excessive vomiting also. The patient had bilious vomiting at this time. The EGD showed only gastritis. On exam, alert and oriented times three. Pulse 72, blood pressure 118/69, respiratory rate 19, temperature 97.4, pulse ox 95% on room air. HEENT: Conjunctivae normal. NECK: No jugular venous distention. CARDIOVASCULAR: S1, S2 muffled. RESPIRATORY: Breath sounds diminished at the bases. No rhonchi, no crackles. ABDOMEN: Soft, nontender. No mass palpable. LEGS: No edema. No swelling. CENTRAL NERVOUS SYSTEM: No focal deficits. LABS: WBC 6.8, hemoglobin 11.6. ASSESSMENT: 1. Incessant nausea, vomiting, possible acute gastritis, status post EGD. 2. Hypertensive urgency and as well as accelerated hypertension. 3. Diabetes mellitus type 2. 4. Hyperkalemia. 5. Dehydration, present on admission because of incessant vomiting. 6. History of diabetes type 2. 7. History of hypertension. 8. Hyperlipidemia. 9. Obstructive sleep apnea. 10. Obesity with body mass index of 40.2. 11. History of multiple esophageal surgeries secondary to esophageal perforation pull through after surgery for bronchiectasis. 12. History of feeding tube. 13. History chest wall cellulitis. 14. History of bilateral deep venous thrombosis. 15. History of right toe osteomyelitis. 16. Seizure as a child. 17. History of Methicillin-resistant Staph aureus. 18. History of tonsillectomy. 19. History of degenerative joint disease. 20. History of gastroesophageal reflux disease. 21. FULL CODE. RECOMMENDATIONS AND DISCUSSION: Continue current management. Continue with monitoring, symptomatic treatment. Otherwise, at this time, I would recommend to follow the patient closely. We will titrate down the pain medications. Otherwise, continue the rest of the medications. Guarded prognosis. Further recommendations to follow. Add Carafate to the current regimen.
[2017-02-15 23:26] VITALS: RESP 16
[2017-02-16] MEDS: HYDROmorphone 1 MG/ML 1 ML SYRINGE IVP PRN ×2 (02:43→09:51)
[2017-02-16] MEDS: METOCLOPRAMIDE 5 MG/ML 2 ML VIAL IVP SCH ×2 (05:37→11:17)
[2017-02-16] MEDS: NITROGLYCERIN OINT 1 INCH/GM PACKET TOPICAL SCH ×2 (05:37→11:17)
[2017-02-16] MEDS: HYDROcodone/APAP 7.5-325MG 1 EACH TAB PO PRN ×2 (05:37→12:41)
[2017-02-16 06:43] LABS: Glucose,Whole Blood 142 mg/dL (75-99)
[2017-02-16 07:41] VITALS: BP 84/56; PULSE 56; TEMP 96.8
[2017-02-16] MEDS: CARVEDILOL 12.5 MG TAB PO SCH (07:57)
[2017-02-16] MEDS: SUCRALFATE 1 GM TAB PO SCH ×2 (07:57→11:17)
[2017-02-16] MEDS: CITALOPRAM HYDROBROMIDE 20 MG TAB PO SCH (07:58)
[2017-02-16] MEDS: PANTOPRAZOLE 40 MG TABLET PO SCH (07:58)
[2017-02-16] MEDS: INSULIN NPL/INSULIN LISPRO 100 UNIT/ML 10 ML VIAL (Humalog 75/25) SQ SCH (07:58)
[2017-02-16] MEDS: INSULIN LISPRO (humaLOG) 300 UNIT/3 ML VIAL SQ SCH ×2 (07:58→12:29)
[2017-02-16 08:18] LABS: Basophils # (A) 0.1 k/uL (0-0.2); Basophils % (A) 1 %; CH 28.4; CHCM 32.3; Eosinophils # (A) 0.2 k/uL (0-0.7); Eosinophils % (A) 4 %; HCT 33.8 % (39.0-53.0); HDW 2.98; Luc # (Auto) 0.12; Luc % (Auto) 2; Lymphocytes # (A) 1.9 k/uL (1.0-4.8); Lymphocytes % (A) 33 %; MCH 28.7 pg (25.0-35.0); MCHC 32.6 g/dL (31.0-37.0); MCV 88.1 fL (80.0-100.0); Mean Platelet Volume 7.4; Monocytes # (A) 0.4 k/uL (0-1.0); Monocytes % (A) 7 %; Neutrophils # (A) 3.2 k/uL (1.3-7.7); Neutrophils % (A) 54 %; RBC 3.84 m/uL (4.30-5.90); RDW 13.6 % (11.5-15.5); WBC 5.9 k/uL (3.8-10.6); WBC (Perox) 6.34
[2017-02-16 08:29] LABS: Anion Gap 13 mmol/L; Blood Urea Nitrogen 32 mg/dL (9-20); Calcium 8.8 mg/dL (8.4-10.2); Carbon Dioxide 24 mmol/L (22-30); Chloride 103 mmol/L (98-107); Glucose 144 mg/dL (74-99); Non-African American GFR(MDRD) >60 (>60 ml/min/1.73 sqM); Potassium 4.2 mmol/L (3.5-5.1); Sodium 140 mmol/L (137-145)
[2017-02-16] MEDS: ONDANSETRON 4 MG/2 ML VIAL IVP PRN (09:14)
[2017-02-16 11:47] LABS: Glucose,Whole Blood 129 mg/dL (75-99)
[2017-02-16 14:22] VITALS: BMI 39.5
--- NOTE | 2017-02-16 23:25 | DS ---
DATE OF ADMISSION: 02/12/2017 DATE OF DISCHARGE: 02/16/2017 FINAL DIAGNOSES: 1. Incessant nausea, vomiting, possibly acute gastritis, status post EGD. 2. Hypertensive urgency as well as acute hypertension, present on admission, improved. 3. Diabetes mellitus type 2. 4. Hyperkalemia improved. 5. Dehydration, present condition because of incessant vomiting. 6. History of hypertension. 7. Hyperlipidemia, history. 8. Obstructive sleep apnea. 9. Obesity with body mass index 40.2. 10. History of multiple esophageal surgery secondary to perforation and pull through after surgery for bronchial cyst. 11. History of feeding tube. 12. History of chest wall cellulitis. 13. History of bilateral DVTs. 14. History for right toe osteomyelitis. 16. History of Methicillin-resistant Staph aureus. 17. History of tonsillectomy. 18. History of degenerative joint disease . 19. History of gastroesophageal reflux disease. 20. Left diabetic foot in cast. 21. FULL CODE. DISCHARGE DISPOSITION: The patient will be discharged in stable condition with guarded prognosis. HISTORY OF PRESENT ILLNESS: This 41-year-old gentleman with a past medical history of multiple medical problems was admitted and incessant nausea and vomiting, possibly acute gastritis and EGD was done and treated symptomatically. Improved significantly. Dietary modification also recommended because of the patient's extensive gastric surgery including esophageal pull through. Small frequent meals are recommended. On exam, vitals are stable. CARDIOVASCULAR SYSTEM: S1, S2 muffled. ABDOMEN: Soft, nontender. Nervous system: No focal deficits. Discharge advice and medications: 1. Diet is soft, bland. 2. Activity limited until follow-up. 3. Follow up with Dr. Celeste in 2 to 3 days with a CBC, BMP. 4. Follow up with [facility] for left diabetic foot. 5. Medication Xanax 0.25 t.i.d. p.r.n. 6. Aspirin 81 mg p.o. daily. 7. Lipitor 10 mg q.h.s. 8. Coreg 6.25 mg p.o. b.i.d. 9. Celexa 20 mg p.o. daily. 10. Clonidine 0.1 patch every 24 hours. 11.flexerl 10 mg q.6 p.r.n. 12. Vitamin D2 50,000 daily. 13. [place] 7.5 q.6 p.r.n. 14. Lispro 30 units subcu b.i.d. 15. Zestril 10 mg p.o. daily. 16. Reglan 10 mg p.o. daily. 17. Nitro 0.4 sublingual p.r.n. 18. Zofran 4 mg q.6 p.r.n. 19. Protonix 40 mg p.o. b.i.d. 20. Carafate 1 gm p.o.achs. 21. Follow up with gastroenterology as recommended. MTDD
[2017-02-18] MEDS ORDERED: ERGOCALCIFEROL 50,000 UNIT CAP PO SCH (09:00)
== END 2017-02-16 14:11 | disposition home or self-care (01) | DRG 392 ==
LOC: EC 09:51 → 6SEL 13:35 → 4MS4W 02-14 18:25
PROVIDERS: ADMIT Internal Medicine; ATTEND Internal Medicine
PROC: 0DB58ZX Excision of Esophagus, Via Natural or Artificial Opening Endoscopic, Diagnostic (ICD-10-PCS; principal; 2017-02-14 13:00)
PROC: 0DB68ZX Excision of Stomach, Via Natural or Artificial Opening Endoscopic, Diagnostic (ICD-10-PCS; principal; 2017-02-14 13:00)
PROC: 0DB88ZX Excision of Small Intestine, Via Natural or Artificial Opening Endoscopic, Diagnostic (ICD-10-PCS; principal; 2017-02-14 13:00)
DX: K29.60 Other gastritis without bleeding (principal); E11.621 Type 2 diabetes mellitus with foot ulcer; Z68.41 Body mass index [BMI] 40.0-44.9, adult; E66.9 Obesity, unspecified; E78.5 Hyperlipidemia, unspecified; E86.0 Dehydration; E87.5 Hyperkalemia; G47.33 Obstructive sleep apnea (adult) (pediatric); I10 Essential (primary) hypertension; I16.0 Hypertensive urgency; K21.9 Gastro-esophageal reflux disease without esophagitis; L97.529 Non-pressure chronic ulcer of other part of left foot with unspecified severity; Z79.82 Long term (current) use of aspirin; Z79.899 Other long term (current) drug therapy; Z86.14 Personal history of Methicillin resistant Staphylococcus aureus infection; Z86.718 Personal history of other venous thrombosis and embolism
CPT/HCPCS: 36415; 43239; 71020; 80048; 80053; 80061; 80306; 81001; 82009; 82150; 82550; 82553; 83036; 83690; 84484; 85025; 85610; 85730; 88305; 88312; 88342; 93005; 93306; 97597

== ENCOUNTER → 2017-02-20 | Outpatient (CLI) | payer OTHER ==
--- NOTE | 2017-02-21 07:40 | XR ---
Lumbosacral spine HISTORY: Back pain, M 56.5 5 views of the lumbosacral spine Lumbar vertebral bodies show preserved height, alignment, and bone mineralization. No spondylolysis o r spondylolisthesis. Loss of disc height L3-4. Sclerosis present in the posterior elements. Multileve l spondylosis noted. IMPRESSION: Degenerative disc disease, facet arthropathy.
== END | disposition home or self-care (01) ==
LOC: RADXRMAIN 18:11
PROVIDERS: ATTEND Family Medicine
DX: M51.36 Other intervertebral disc degeneration, lumbar region (principal); M46.96 Unspecified inflammatory spondylopathy, lumbar region
CPT/HCPCS: 72110

== ENCOUNTER → 2017-04-13 | Outpatient (CLI) | payer OTHER ==
--- NOTE | 2017-04-13 12:28 | NM ---
EXAMINATION TYPE: NM gastric emptying study DATE OF EXAM: 04/13/2017 COMPARISON: NONE HISTORY: Gastroparesis, history of gastric pull-through procedure Following administration of 2.14 mCi Tc 99m Sulfur Colloid with 1 cup of oatmeal projection images of the abdomen were obtained 10 minutes post ingestion. When possible, both anterior and posterior proj ection images were obtained to allow the calculation of the geometric mean activity. Clearance: 68 % Half-life: 39 min Gastroesophagel reflux: None IMPRESSION: 1. No diagnostic evidence of delayed gastric emptying
== END | disposition home or self-care (01) ==
LOC: RADNMMAIN 06:53
PROVIDERS: ATTEND Family Medicine
DX: K31.84 Gastroparesis (principal)
CPT/HCPCS: 78264; A9541

== ENCOUNTER 2017-05-23 12:12 | Observation (INO) | payer OTHER ==
[2017-05-23 13:37] LABS: Basophils % (A) 1 %; CH 28.3; CHCM 32.5; Eosinophils # (A) 0.4 k/uL (0-0.7); Eosinophils % (A) 8 %; HCT 28.8 % (39.0-53.0); HDW 3.26; HGB 9.1 gm/dL (13.0-17.5); Hypochromasia Slight; Luc # (Auto) 0.08; Luc % (Auto) 2; Lymphocytes # (A) 0.9 k/uL (1.0-4.8); Lymphocytes % (A) 19 %; MCH 27.8 pg (25.0-35.0); MCHC 31.8 g/dL (31.0-37.0); MCV 87.4 fL (80.0-100.0); Mean Platelet Volume 9.9; Monocytes # (A) 0.3 k/uL (0-1.0); Monocytes % (A) 6 %; Neutrophils % (A) 65 %; RBC 3.29 m/uL (4.30-5.90); RDW 15.4 % (11.5-15.5); WBC 4.7 k/uL (3.8-10.6); WBC (Perox) 4.93
--- NOTE | 2017-05-23 13:42 | ED ---
General Adult HPI - General Chief complaint: Recheck/Abnormal Lab/Rx Stated complaint: Swelling on Testicles Time Seen by Provider: 05/23/17 12:37 Source: patient, RN notes reviewed, old records reviewed Mode of arrival: ambulatory Limitations: no limitations - History of Present Illness Initial comments: This is a 42-year-old male here for evaluation. Patient states he is having 3 days of significant groin swelling to the point where he can't even walk today. Significant groin site of where he can't walk. Patient states he never had this issue before. Denies any other complaints or pain. No trauma. No significant pain in his groin just mainly the swelling - Related Data Home Medications Medication Instructions Recorded Confirmed Insulin Lispro Protamin/Lispro 30 unit SQ BID 06/14/15 03/07/17 [humaLOG Mix 75-25 Kwikpen] Atorvastatin [Lipitor] 10 mg PO HS 09/05/16 03/07/17 Citalopram Hydrobromide [CeleXA] 20 mg PO DAILY 09/05/16 03/07/17 Cyclobenzaprine [Flexeril] 10 mg PO HS PRN 09/05/16 03/07/17 HYDROcodone/APAP 7.5-325MG [[place] 1 tab PO Q6HR 09/05/16 03/07/17 7.5-325] Metoclopramide [Reglan] 10 mg PO QID 09/05/16 03/07/17 Lisinopril [Zestril] 10 mg PO DAILY 12/20/16 03/07/17 Nitroglycerin 0.4 mg SL Q5M PRN 12/20/16 03/07/17 Aspirin 81 mg PO DAILY 02/12/17 03/07/17 Carvedilol [Coreg] 6.25 mg PO BID 02/12/17 03/07/17 Ergocalciferol [Vitamin D2 50,000 unit PO Q7D 02/12/17 03/07/17 (DRISDOL)] Previous Rx's Medication Instructions Recorded ALPRAZolam [Xanax] 0.25 mg PO TID PRN #20 tab 02/16/17 Ondansetron [Zofran] 4 mg PO Q6HR PRN #30 tab 02/16/17 Pantoprazole [Protonix] 40 mg PO BID #60 tab 02/16/17 Sucralfate [Carafate] 1 gm PO ACHS #120 tab 02/16/17 cloNIDine 0.1 MG/24HR PATCH 1 patch TRANSDERM Q7D #4 patch 02/16/17 [Catapres-TTS] Allergies Allergy/AdvReac Type Severity Reaction Status Date / Time No Known Allergies Allergy Verified 05/23/17 12:24 Review of Systems ROS Statement: Those systems with pertinent positive or pertinent negative responses have been documented in the HPI. ROS Other: All systems not noted in ROS Statement are negative. 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 no cpap used, hx blood clot mike arms. infection in rt second toe osteomyelitis(pt stated toe was amputated). " loose stools "seizure as , wound lt great foot/goes to [facility] on sun History of Any Multi-Drug Resistant Organisms: MRSA Date of last positivie culture/infection: 02/28/16, 06/17/15 lt chest cellulitis MDRO Source:: rt second toe Past Surgical History: Tonsillectomy Additional Past Surgical History / Comment(s): bronchial cyst removed, esophagus clipped and removed, stomach stretching, pt reports 35 different procedures on esophogus, amputation rt great toe and toe next to great toe, picc line 8-61-36-since removed, i&d chest wound Past Anesthesia/Blood Transfusion Reactions: No Reported Reaction Past Psychological History: No Psychological Hx Reported Smoking Status: Never smoker Past Alcohol Use History: Occasional Past Drug Use History: None Reported - Past Family History Father Family Medical History: Diabetes Mellitus Additional Family Medical History / Comment(s): ETOH Mother Family Medical History: No Reported History General Exam Limitations: no limitations General appearance: alert, in no apparent distress Head exam: Present: atraumatic, normocephalic, normal inspection Eye exam: Present: normal appearance, PERRL, EOMI. Absent: scleral icterus, conjunctival injection, periorbital swelling ENT exam: Present: normal exam, mucous membranes moist Neck exam: Present: normal inspection. Absent: tenderness, meningismus, lymphadenopathy Respiratory exam: Present: normal lung sounds bilaterally. Absent: respiratory distress, wheezes, rales, rhonchi, stridor Cardiovascular Exam: Present: regular rate, normal rhythm, normal heart sounds. Absent: systolic murmur, diastolic murmur, rubs, gallop, clicks GI/Abdominal exam: Present: soft, normal bowel sounds. Absent: distended, tenderness, guarding, rebound, rigid exam: Present: scrotal swelling (Significant anasarca and groin swelling) Extremities exam: Present: normal inspection, full ROM, normal capillary refill. Absent: tenderness, pedal edema, joint swelling, calf tenderness Back exam: Present: normal inspection Neurological exam: Present: alert, oriented X3, CN II-XII intact Psychiatric exam: Present: normal affect, normal mood Skin exam: Present: warm, dry, intact, normal color. Absent: rash Course Vital Signs 05/23/17 12:22 Temperature 98.2 F Pulse Rate 76 Respiratory 18 Rate Blood Pressure 98/49 O2 Sat by Pulse 95 Oximetry EKG Findings - EKG Comments: EKG Findings:: EKG shows normal sinus rhythm of 64, NE 172, QRS 90, QTC 420 Medical Decision Making - Medical Decision Making 42 male year for largely significant anasarca groin swelling. Scrotal edema, patient will be admitted for evaluation and treatment - Radiology Data Radiology results: report reviewed (US -SCROTUM IS NEGATIVE), image reviewed Disposition Clinical Impression: Scrotal swelling Disposition: ADMITTED IP TO THIS [facility] Condition: Good Referrals: Jeanne Celeste MD [Primary Care Provider] - 1-2 days
[2017-05-23 13:48] LABS: ALT 25 U/L (21-72); AST 22 U/L (17-59); Alkaline Phosphatase 64 U/L (38-126); Anion Gap 5 mmol/L; Blood Urea Nitrogen 22 mg/dL (9-20); Calcium 8.6 mg/dL (8.4-10.2); Carbon Dioxide 28 mmol/L (22-30); Chloride 107 mmol/L (98-107); Glucose 81 mg/dL (74-99); Magnesium 1.7 mg/dL (1.6-2.3); Non-African American GFR(MDRD) >60 (>60 ml/min/1.73 sqM); Phosphorous 3.5 mg/dL (2.5-4.5); Potassium 5.1 mmol/L (3.5-5.1); Prothrombin Time 10.4 sec (9.0-12.0); Sodium 140 mmol/L (137-145); Total Bilirubin 0.3 mg/dL (0.2-1.3); Total Protein 5.7 g/dL (6.3-8.2)
[2017-05-23 14:25] LABS: Creatine Kinase MB 2.4 ng/mL (0.0-2.4)
[2017-05-23] MEDS ORDERED: SODIUM CHLORIDE 0.9% 1,000 ML IV ONE (14:52)
[2017-05-23] MEDS ORDERED: FUROSEMIDE 10 MG/ML 4 ML VIAL IV STA (14:58)
[2017-05-23] MEDS ORDERED: MORPHINE SULFATE 4 MG/ML SYRINGE IVP STA (15:05)
[2017-05-23 15:55] VITALS: BMI 81.4
--- NOTE | 2017-05-23 16:05 | US ---
EXAMINATION TYPE: US scrotum with doppler. Grayscale and color Doppler Duplex imaging performed of isidoro bishop scrotum. DATE OF EXAM: 05/23/2017 COMPARISON: NONE CLINICAL HISTORY: Pain. Bilateral swollen testes x few days. Patient states no injury. EXAM MEASUREMENTS: TESTICLES: Right Testicle: 3.7 x 3.1 x 2.6 cm Left Testicle: 4.4 x 2.8 x 2.8 cm EPIDIDYMIS HEAD: Right Epididymis: 2.2 x 2.6 x 1.8 cm Left Epididymis: 2.3 x 3.4 x 1.7 cm Doppler performed to assess for testicular vascularity; good bilateral color flow and waveforms are s een. There is no evidence of testicular torsion. Presence of hydroceles: bilateral Superficial edema seen. Bilateral epididymis appear echogenic, heterogeneous and enlarged. Limited vascular visualization due to edema IMPRESSION: 1. The epididymis is enlarged and heterogenous bilaterally without increased vascularity. This findin g could relate to acute on chronic epididymitis. Short-term follow-up is recommended to ensure resolu tion. 2. Diffuse scrotal edema, correlate clinically for cellulitis. 3. No evidence of orchitis or testicular torsion during the examination. 4. Small bilateral simple appearing hydroceles.
[2017-05-23 17:09] LABS: Glucose,Whole Blood 147 mg/dL (75-99)
[2017-05-23] MEDS: INSULIN LISPRO (humaLOG) 300 UNIT/3 ML VIAL SQ SCH ×2 (17:52→20:49)
[2017-05-23] MEDS: CARVEDILOL 6.25 MG TAB PO SCH (17:52)
[2017-05-23] MEDS: PANTOPRAZOLE 40 MG TABLET PO SCH (17:53)
[2017-05-23] MEDS: MORPHINE SULFATE 4 MG/ML SYRINGE IVP PRN (19:25)
[2017-05-23 20:46] LABS: Hemoglobin A1C 7.7 % (4.2-6.1)
[2017-05-23] MEDS: ATORVASTATIN 10 MG TAB PO SCH (20:46)
[2017-05-23 20:52] LABS: Glucose,Whole Blood 107 mg/dL (75-99)
[2017-05-23] MEDS: hydrALAZINE HCL 50 MG TAB PO SCH (21:49)
[2017-05-23] MEDS: FUROSEMIDE 10 MG/ML 4 ML VIAL IV SCH (22:04)
[2017-05-24] MEDS: MORPHINE SULFATE 4 MG/ML SYRINGE IVP PRN ×2 (02:18→06:21)
[2017-05-24 07:02] LABS: Glucose,Whole Blood 99 mg/dL (75-99)
[2017-05-24] MEDS: INSULIN LISPRO (humaLOG) 300 UNIT/3 ML VIAL SQ SCH ×4 (08:16→21:18)
[2017-05-24] MEDS: PANTOPRAZOLE 40 MG TABLET PO SCH ×2 (08:45→17:46)
[2017-05-24] MEDS: ENOXAPARIN 40 MG/0.4 ML SYRINGE SQ SCH (08:46)
[2017-05-24] MEDS: FUROSEMIDE 10 MG/ML 4 ML VIAL IV SCH (08:47)
[2017-05-24] MEDS ORDERED: LISINOPRIL 20 MG TAB PO SCH (09:00)
[2017-05-24 11:20] LABS: Glucose,Whole Blood 135 mg/dL (75-99)
[2017-05-24] MEDS: hydrALAZINE HCL 50 MG TAB PO SCH (12:03)
[2017-05-24] MEDS: METOPROLOL TARTRATE 25 MG TAB PO SCH (12:04)
[2017-05-24] MEDS: CARVEDILOL 6.25 MG TAB PO SCH (12:05)
--- NOTE | 2017-05-24 12:07 | P.HPIM ---
History of Present Illness 42-year-old male was admitted to her jaw service initially was switched to my service. Patient came in with a scrotal swelling has been going on for 2 days. Upon exam it appears like patient either has epididymoorchitis or hydrocele along with the possibly of cellulitis, not impressive facilities because of which I'm starting not starting on antibiotics we'll get infectious disease opinion regarding that. We'll also get either surgical or urological opinion for hydrocele. I do not believe patient has anasarca patient is morbidly obese. Patient has multiple other medical problems including diabetes mellitus. Patient was on Lasix which will discuss reviewed and do not believe patient will benefit from Lasix. Patient is complaining of the pain in the scrotal area. Scrotal ultrasound did show epididymitis. Patient denied any shortness of breath. Patient had previous echo Which is within normal limits patient kidney function is essentially within normal limits I do not believe patient scrotal swelling is medically nature and is surgical in nature. The other issues with the patient patient is on 2 beta blockers which were discontinued patient is hypotensive secondary to Lasix which she will not need which will be discontinued and patient will use [place] for pain. Patient's aneurysm medications during lisinopril risk and urine because of hypotension although patient will benefit with lisinopril long-term because of his history of diabetes with us patient already has right greater amputation. Review of Systems REVIEW OF SYSTEMS: CONSTITUTIONAL: No fever, no malaise, no fatigue. HEENT: No recent visual problems or hearing problems. Denied any sore throat. CARDIOVASCULAR: No chest pain, orthopnea, PND, no palpitations, no syncope. PULMONARY: No shortness of breath, no cough, no hemoptysis. GASTROINTESTINAL: No diarrhea, no nausea, no vomiting, no abdominal pain. Normoactive bowel sounds. NEUROLOGICAL: No headaches, no weakness, no numbness. HEMATOLOGICAL: Denies any bleeding or petechiae. GENITOURINARY: Denies any burning micturition, frequency, or urgency. Scrotal swelling as mentioned above in HPI MUSCULOSKELETAL/RHEUMATOLOGICAL: Denies any joint pain, swelling, or any muscle pain. ENDOCRINE: Denies any polyuria or polydipsia. The rest of the 14-point review of systems is negative. 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 no cpap used, hx blood clot mike arms. infection in rt second toe osteomyelitis(pt stated toe was amputated). " loose stools "seizure as infant, wound lt great foot/goes to [facility] on wed History of Any Multi-Drug Resistant Organisms: MRSA Date of last positivie culture/infection: 02/28/16, 06/17/15 lt chest cellulitis MDRO Source:: rt second toe Past Surgical History: Tonsillectomy Additional Past Surgical History / Comment(s): bronchial cyst removed, esophagus clipped and removed, stomach stretching, pt reports 35 different procedures on esophogus, amputation rt great toe and toe next to great toe, picc line 03-03-16-since removed, i&d chest wound Past Anesthesia/Blood Transfusion Reactions: No Reported Reaction Past Psychological History: No Psychological Hx Reported Smoking Status: Never smoker Past Alcohol Use History: Occasional Past Drug Use History: None Reported - Past Family History Father Family Medical History: Diabetes Mellitus Additional Family Medical History / Comment(s): ETOH Mother Family Medical History: No Reported History Medications and Allergies Home Medications Medication Instructions Recorded Confirmed Type Insulin Lispro Protamin/Lispro 30 unit SQ HS 06/14/15 05/23/17 History [humaLOG Mix 75-25 Kwikpen] Atorvastatin [Lipitor] 10 mg PO HS 09/05/16 05/23/17 History Cyclobenzaprine [Flexeril] 10 mg PO HS PRN 09/05/16 05/23/17 History HYDROcodone/APAP 7.5-325MG [[place] 1 tab PO Q6HR 09/05/16 05/23/17 History 7.5-325] Nitroglycerin 0.4 mg SL Q5M PRN 12/20/16 05/23/17 History Aspirin 81 mg PO DAILY 02/12/17 05/23/17 History Carvedilol [Coreg] 6.25 mg PO BID 02/12/17 05/23/17 History Insulin Lispro Protamin/Lispro 35 unit SQ QAM 05/23/17 05/23/17 History [humaLOG Mix 75-25 Kwikpen] Lisinopril 40 mg PO DAILY 05/23/17 05/23/17 History Metoprolol Tartrate [Lopressor] 75 mg PO DAILY 05/23/17 05/23/17 History hydrALAZINE HCL [Apresoline] 100 mg PO TID 05/23/17 05/23/17 History Allergies Allergy/AdvReac Type Severity Reaction Status Date / Time No Known Allergies Allergy Verified 05/23/17 13:58 Physical Exam Vitals: Vital Signs Temp Pulse Pulse Resp BP BP Pulse Ox 05/24/17 11:28 59 L 18 99/52 05/24/17 09:13 18 05/24/17 07:13 97.7 F 61 16 104/57 95 05/24/17 02:18 147/83 05/23/17 22:00 72 105/51 91 L 05/23/17 20:40 97.0 F L 61 16 94/47 93 L 05/23/17 16:03 97.7 F 58 L 16 135/60 98 05/23/17 15:27 97 F L 89 18 112/80 98 05/23/17 12:22 98.2 F 76 18 98/49 95 Intake and Output 05/23/17 05/24/17 05/24/17 22:59 06:59 14:59 Intake Total 100 Output Total 850 Balance 100 -850 Intake: Intake, IV Titration 100 Amount Sodium Chloride 0.9% 1, 100 000 ml @ 20 mls/hr IV . Q24H ONE Rx#:[id number] Output: Urine 850 Other: Voiding Method Toilet Urinal # Voids 1 1 1 Weight 280 kg PHYSICAL EXAMINATION: GENERAL: The patient is alert and oriented x3, not in any acute distress. Well developed, well nourished. HEENT: Pupils are round and equally reacting to light. EOMI. No scleral icterus. No conjunctival pallor. Normocephalic, atraumatic. No pharyngeal erythema. No thyromegaly. CARDIOVASCULAR: S1 and S2 present. No murmurs, rubs, or gallops. PULMONARY: Chest is clear to auscultation, no wheezing or crackles. ABDOMEN: Soft, nontender, nondistended, normoactive bowel sounds. No palpable organomegaly. MUSCULOSKELETAL: No joint swelling or deformity. EXTREMITIES: No cyanosis, clubbing, or pedal edema. Patient does not have any significant peripheral edema but does have scrotal edema does not appear to have hernia but appear to have hydrocele epididymides the epididymis was not examined I didn't see any clear-cut cellulitis NEUROLOGICAL: Gross neurological examination did not reveal any focal deficits. SKIN: Patient does have multiple skin lesions which appears like psoriatic patches, will need biopsy as an outpatient for psoriasis Results CBC & Chem 7: 05/23/17 13:25 05/23/17 13:25 Labs: Abnormal Lab Results - Last 24 Hours (Table) 05/23/17 05/23/17 05/23/17 Range/Units 13:25 13:25 13:25 RBC 3.29 L (4.30-5.90) m/uL Hgb 9.1 L (13.0-17.5) gm/dL Hct 28.8 L (39.0-53.0) % Lymphocytes # 0.9 L (1.0-4.8) k/uL BUN 22 H (9-20) mg/dL POC Glucose (mg/dL) (75-99) mg/dL Hemoglobin A1c (4.2-6.1) % Total Creatine Kinase 177 H (55-170) U/L Total Protein 5.7 L (6.3-8.2) g/dL Albumin 3.3 L (3.5-5.0) g/dL 05/23/17 05/23/17 05/23/17 Range/Units 13:25 17:08 20:49 RBC (4.30-5.90) m/uL Hgb (13.0-17.5) gm/dL Hct (39.0-53.0) % Lymphocytes # (1.0-4.8) k/uL BUN (9-20) mg/dL POC Glucose (mg/dL) 147 H 107 H (75-99) mg/dL Hemoglobin A1c 7.7 H (4.2-6.1) % Total Creatine Kinase (55-170) U/L Total Protein (6.3-8.2) g/dL Albumin (3.5-5.0) g/dL 05/24/17 Range/Units 11:13 RBC (4.30-5.90) m/uL Hgb (13.0-17.5) gm/dL Hct (39.0-53.0) % Lymphocytes # (1.0-4.8) k/uL BUN (9-20) mg/dL POC Glucose (mg/dL) 135 H (75-99) mg/dL Hemoglobin A1c (4.2-6.1) % Total Creatine Kinase (55-170) U/L Total Protein (6.3-8.2) g/dL Albumin (3.5-5.0) g/dL Thrombosis Risk Factor Assmnt - Choose All That Apply Any of the Below Risk Factors Present?: Yes Each Factor Represents 1 point: Obesity (BMI >25) Thrombosis Risk Factor Assessment Total Risk Factor Score: 1 Thrombosis Risk Factor Assessment Level: Low Risk Assessment and Plan Plan: #1 scrotal swelling: Patient probably has hydrocele epididymis mitis cannot be ruled out will get urological opinion. I didn't see any clear capsulitis will get infectious disease opinion regarding that the patient will not be started on any antibiotics. I do not believe patient has anasarca and patient will not benefit from Lasix which will be deciding her. #2 hypertension patient is hypotensive: Patient's antiemesis medications will be discontinued at this time. Patient is on 2 beta blockers which is not recommended, Coreg will be discontinued metoprolol will be continued because of hypotension. #3 diabetes mellitus type II: Patient's blood sugars on the low normal side because of which we'll just use sliding scale rather than 70/30 at this time. #4 morbid obesity with sleep apnea uses CPAP machine at home which will be can you. #5 hyperlipidemia
[2017-05-24] MEDS: HYDROcodone/APAP 7.5-325MG 1 EACH TAB PO PRN ×3 (12:14→21:19)
[2017-05-24 16:32] LABS: Glucose,Whole Blood 132 mg/dL (75-99)
[2017-05-24 17:27] LABS: Appearance,Urine Clear (Clear); Bilirubin,Urine Negative (Negative); Glucose,Urine (UA) Negative (Negative); Ketones,Urine Negative (Negative); Leukocyte Esterase,Urine Negative (Negative); Nitrite,Urine Negative (Negative); Protein,Urine Negative (Negative); Specific Gravity,Urine 1.009 (1.001-1.035); UA Billing (MACRO vs. MICRO) CHEM; Urobilinogen,Urine <2.0 mg/dL (<2.0)
--- NOTE | 2017-05-24 18:21 | P.GSCN ---
History of Present Illness Consult date: 05/24/17 Reason for Consult: Scrotal swelling Requesting physician: Nat Valles History of present illness: The patient is a 42-year-old white male who has experienced progressive scrotal swelling and discomfort since 05/21/2017. He has had no prior similar episodes. He also reports lower extremity edema. He states that the scrotal discomfort is generalized, and cannot lateralize it to either side. 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 no cpap used, hx blood clot mike arms. infection in rt second toe osteomyelitis(pt stated toe was amputated). " loose stools "seizure as infant, wound lt great foot/goes to [facility] on sun History of Any Multi-Drug Resistant Organisms: MRSA Year Discovered:: 02/28/16, 06/17/15 lt chest cellulitis MDRO Source:: rt second toe Past Surgical History: Tonsillectomy Additional Past Surgical History / Comment(s): bronchial cyst removed, esophagus clipped and removed, stomach stretching, pt reports 35 different procedures on esophogus, amputation rt great toe and toe next to great toe, picc line [id number] removed, i&d chest wound Past Anesthesia/Blood Transfusion Reactions: No Reported Reaction Past Psychological History: No Psychological Hx Reported Smoking Status: Never smoker Past Alcohol Use History: Occasional Past Drug Use History: None Reported - Past Family History Father Family Medical History: Diabetes Mellitus Additional Family Medical History / Comment(s): ETOH Mother Family Medical History: No Reported History Medications and Allergies Home Medications Medication Instructions Recorded Confirmed Type Insulin Lispro Protamin/Lispro 30 unit SQ HS 06/14/15 05/23/17 History [humaLOG Mix 75-25 Kwikpen] Atorvastatin [Lipitor] 10 mg PO HS 09/05/16 05/23/17 History Cyclobenzaprine [Flexeril] 10 mg PO HS PRN 09/05/16 05/23/17 History HYDROcodone/APAP 7.5-325MG [[place] 1 tab PO Q6HR 09/05/16 05/23/17 History 7.5-325] Nitroglycerin 0.4 mg SL Q5M PRN 12/20/16 05/23/17 History Aspirin 81 mg PO DAILY 02/12/17 05/23/17 History Carvedilol [Coreg] 6.25 mg PO BID 02/12/17 05/23/17 History ALPRAZolam [Xanax] 0.25 mg PO TID PRN #20 tab 02/16/17 05/23/17 Rx Pantoprazole [Protonix] 40 mg PO BID #60 tab 02/16/17 05/23/17 Rx Insulin Lispro Protamin/Lispro 35 unit SQ QAM 05/23/17 05/23/17 History [humaLOG Mix 75-25 Kwikpen] Lisinopril 40 mg PO DAILY 05/23/17 05/23/17 History Metoprolol Tartrate [Lopressor] 75 mg PO DAILY 05/23/17 05/23/17 History hydrALAZINE HCL [Apresoline] 100 mg PO TID 05/23/17 05/23/17 History Allergies Allergy/AdvReac Type Severity Reaction Status Date / Time No Known Allergies Allergy Verified 05/23/17 13:58 Surgical - Exam Vital Signs Temp Pulse Resp BP Pulse Ox 98.2 F 76 18 98/49 95 05/23/17 12:22 05/23/17 12:22 05/23/17 12:22 05/23/17 12:22 05/23/17 12:22 - General well developed, well nourished, no distress - Genitourinary Mild penile edema without lesions. Significant scrotal edema. The testes are palpably normal, and non-tender to palpation. - Musculoskeletal normal gait - Psychiatric oriented to time, oriented to person, oriented to place, speech is normal, memory intact 2+ lower extremity edema. Results - Labs 05/23/17 13:25 05/23/17 13:25 Abnormal Lab Results - Last 24 Hours (Table) 05/23/17 05/23/17 05/24/17 Range/Units 13:25 20:49 11:13 POC Glucose (mg/dL) 107 H 135 H (75-99) mg/dL Hemoglobin A1c 7.7 H (4.2-6.1) % 05/24/17 Range/Units 16:30 POC Glucose (mg/dL) 132 H (75-99) mg/dL Hemoglobin A1c (4.2-6.1) % Diabetes panel 05/23/17 Range/Units 13:25 Hemoglobin A1c 7.7 H (4.2-6.1) % Assessment and Plan (1) Scrotal swelling Status: Acute Plan: The patient has scrotal edema, along with lower extremity edema, consistent with anasarca. There is no evidence of intrascrotal pathology. Ultrasound showed normal testes, along with bilateral epididymal enlargement. There was no associated increased epididymal vascularity, as would be expected with epididymitis. Likewise, the epididymides are non-tender to palpation. Recommended treatment in this setting would consist of diuresis and scrotal elevation. Please notify me if I can be of any further assistance. Time with Patient: Greater than 30
[2017-05-24 20:12] LABS: Glucose,Whole Blood 139 mg/dL (75-99)
[2017-05-24] MEDS: ATORVASTATIN 10 MG TAB PO SCH (21:19)
[2017-05-25] MEDS: HYDROcodone/APAP 7.5-325MG 1 EACH TAB PO PRN ×3 (02:50→18:01)
[2017-05-25 07:25] LABS: Glucose,Whole Blood 129 mg/dL (75-99)
[2017-05-25 08:24] LABS: Anion Gap 6 mmol/L; Blood Urea Nitrogen 27 mg/dL (9-20); Calcium 8.5 mg/dL (8.4-10.2); Carbon Dioxide 25 mmol/L (22-30); Chloride 107 mmol/L (98-107); Glucose 109 mg/dL (74-99); Non-African American GFR(MDRD) >60 (>60 ml/min/1.73 sqM); Potassium 5.6 mmol/L (3.5-5.1); Sodium 138 mmol/L (137-145)
[2017-05-25] MEDS: INSULIN LISPRO (humaLOG) 300 UNIT/3 ML VIAL SQ SCH ×4 (08:34→21:19)
[2017-05-25] MEDS: ENOXAPARIN 40 MG/0.4 ML SYRINGE SQ SCH (08:37)
[2017-05-25] MEDS: PANTOPRAZOLE 40 MG TABLET PO SCH ×2 (08:37→18:03)
[2017-05-25] MEDS: METOPROLOL TARTRATE 25 MG TAB PO SCH ×2 (08:37→21:33)
[2017-05-25] MEDS ORDERED: SODIUM POLYSTYRENE SULFONATE 15 GM/60 ML BOTTLE PO ONE ×2 (11:22→17:00)
[2017-05-25] MEDS ORDERED: FUROSEMIDE 10 MG/ML 4 ML VIAL IV STA (11:29)
[2017-05-25 11:33] LABS: Glucose,Whole Blood 129 mg/dL (75-99)
[2017-05-25] MEDS: HYDROmorphone 1 MG/ML 1 ML SYRINGE IVP PRN ×2 (12:51→19:58)
--- NOTE | 2017-05-25 15:34 | CONS ---
CONSULTATION DATE OF SERVICE: 05/24/2017 REASON FOR CONSULTATION: Possible scrotal infection. HISTORY OF PRESENT ILLNESS: The patient is a 42-year-old, morbidly obese male presenting to the ER at [facility], [place], [facility] with chief complaint of scrotal swelling. The patient has some swelling going on the leg and scrotal area. However yesterday he noticed the scrotum to be significantly swollen. The patient did have some generalized pain, dull aching 3 to 4 out of 10 with no radiation. No significant redness, skin breakdown or any drainage. The patient denies any burning or frequency of urine. The patient denies having any fever or chills. With these symptoms, the patient was evaluated by the ER physician where then patient did have a scrotal ultrasound. It did show epididymis was enlarged and heterogeneous bilaterally and diffuse scrotal edema. No evidence of orchitis or testicular torsion. The patient was admitted hospital and ID was consulted for recommended regarding possible scrotal cellulitis or any need for antibiotic therapy. REVIEW OF SYSTEMS: CONSTITUTIONAL: Positive for weakness, but no fever. EYES: No complaint. ENT: No complaint. RESPIRATORY: No complaint. CARDIOVASCULAR: No complaint. GENITOURINARY: As per HPI. GASTROINTESTINAL: No complaint. MUSCULOSKELETAL: No complaint. INTEGUMENTARY: No complaint. PSYCHOLOGICAL: No complaint. ENDOCRINE: No complaint. NEUROLOGIC: No complaint. PAST MEDICAL HISTORY: Hypertension, hyperlipidemia, sleep apnea, diabetes mellitus and previous history of MRSA chest wall infection. PAST SURGICAL HISTORY: Tonsillectomy, bronchial cyst removed, and stomach and esophageal surgery, I and D of the chest wall wound. SOCIAL HISTORY: No history of smoking, drinking, or drug use. FAMILY HISTORY: Father has history of diabetes. ALLERGIES: No known drug allergies. MEDICATIONS WERE: The patient is currently on [place], Lipitor, Lovenox, Humalog, Lopressor, morphine sulfate, Protonix. EXAMINATION: On examination, blood pressure is 97/53 with a pulse of 78, temperature of 98. He is 98% on room air. General description is middle-aged male lying in bed, in no distress. HEENT: Shows no pallor or scleral icterus. Oral mucosa is dry. NECK: Trachea is central. No thyromegaly. LUNGS: Unlabored breathing. Clear to auscultation anteriorly. HEART: S1, S2. Regular rate and rhythm. ABDOMEN: Soft, no tenderness. no guarding or rigidity. EXAMINATION OF GENITOURINARY SYSTEM: The patient did have swelling of his scrotal area. No significant redness was noticed or any tenderness on palpation. No open wounds. EXTREMITIES: With 2+ edema feet. SKIN: No rash or mass palpable. NEUROLOGICAL: Patient is awake, alert, oriented x3. Mood and affect is normal. LABS: Hemoglobin is 9.1, white blood count 4.7, BUN of 22 with a creatinine 0.91. DIAGNOSTIC IMPRESSION: Patient with scrotal swelling and more likely secondary to hydrocele. Clinically doubt scrotal cellulitis, epididymitis or orchitis as the patient has no redness of the scrotal area and no tenderness, no fever, and no elevated white count. PLAN: 1. No need for systemic antibiotic therapy as clinically doubt any infectious involvement in his genitourinary area. 2. The patient may benefit from scrotal elevation and diuretic therapy being managed by the primary team. Thank you for this consultation. Plan of care discussed with attending physician. MARIELOS / MARYLUN: [id number] /
--- NOTE | 2017-05-25 16:57 | P.PN ---
Subjective Progress note being dictated for Dr. Rawls. Interval history:42-year-old male was admitted to her jaw service initially was switched to my service. Patient came in with a scrotal swelling has been going on for 2 days. Upon exam it appears like patient either has epididymoorchitis or hydrocele along with the possibly of cellulitis, not impressive facilities because of which I'm starting not starting on antibiotics we'll get infectious disease opinion regarding that. We'll also get either surgical or urological opinion for hydrocele. I do not believe patient has anasarca patient is morbidly obese. Patient has multiple other medical problems including diabetes mellitus. Patient was on Lasix which will discuss reviewed and do not believe patient will benefit from Lasix. Patient is complaining of the pain in the scrotal area. Scrotal ultrasound did show epididymitis. Patient denied any shortness of breath. Patient had previous echo Which is within normal limits patient kidney function is essentially within normal limits I do not believe patient scrotal swelling is medically nature and is surgical in nature. The other issues with the patient patient is on 2 beta blockers which were discontinued patient is hypotensive secondary to Lasix which she will not need which will be discontinued and patient will use [place] for pain. Patient's aneurysm medications during lisinopril risk and urine because of hypotension although patient will benefit with lisinopril long-term because of his history of diabetes with us patient already has right greater amputation. 05/25/2017 Ambulating with in room, afebrile, normal WBC. Complains of significant scrotal edema -denies scrotal tenderness. Borderline hypotension, systolic in the low 100s. Evaluated by infectious disease, recommending no antibiotic therapy. Good diet intake. Hyperkalemic, hgb 5.6. REVIEW OF SYSTEMS: CONSTITUTIONAL: No fever, no malaise, no fatigue. HEENT: No recent visual problems or hearing problems. Denied any sore throat. CARDIOVASCULAR: No chest pain, orthopnea, PND, no palpitations, no syncope. PULMONARY: No shortness of breath, no cough, no hemoptysis. GASTROINTESTINAL: No diarrhea, no nausea, no vomiting, no abdominal pain. Normoactive bowel sounds. NEUROLOGICAL: No headaches, no weakness, no numbness. HEMATOLOGICAL: Denies any bleeding or petechiae. GENITOURINARY: Denies any burning micturition, frequency, or urgency. Scrotal swelling MUSCULOSKELETAL/RHEUMATOLOGICAL: Denies any joint pain, swelling, or any muscle pain. ENDOCRINE: Denies any polyuria or polydipsia. The rest of the 14-point review of systems is negative. Active Medications Hydrocodone Bitart/Acetaminophen ([place] 7.5-325) 1 each PO Q4H PRN PRN Reason: MILD TO MODERATE Pain Last Admin: 05/25/17 08:41 Dose: 1 each Atorvastatin Calcium (Lipitor) 10 mg PO HS YAAKOV Last Admin: 05/24/17 21:19 Dose: 10 mg Furosemide (Lasix) 20 mg IV DAILY YAAKOV Heparin Sodium (Porcine) (Heparin) 5,000 unit SQ Q12HR YAKAOV Hydromorphone HCl (Dilaudid) 0.5 mg IVP Q6HR PRN PRN Reason: MILD TO MODERATE Pain Last Admin: 05/25/17 12:51 Dose: 0.5 mg Insulin Human Lispro (Humalog) 0 unit SQ ACHS YAAKOV PRN Reason: Protocol Last Admin: 05/25/17 12:37 Dose: Not Given Metoprolol Tartrate (Lopressor) 25 mg PO BID YAAKOV Morphine Sulfate (Morphine Sulfate (Inj)) 4 mg IVP Q4HR PRN PRN Reason: Severe Pain Last Admin: 05/24/17 06:21 Dose: 4 mg Pantoprazole Sodium (Protonix) 40 mg PO AC-BID YAAKOV Last Admin: 05/25/17 08:37 Dose: 40 mg Objective - Vital Signs Vital signs: Vital Signs Temp 97.1 F L 05/25/17 15:36 Pulse 56 L 05/25/17 16:07 Resp 20 05/25/17 15:36 BP 103/66 05/25/17 15:36 Pulse Ox 98 05/24/17 20:50 Intake & Output 05/24/17 05/25/17 05/25/17 18:59 06:59 18:59 Intake Total 1030 Output Total 850 0 Balance -850 1030 Intake: IV 10 Invasive Line 1 10 Oral 1020 Output: Urine 850 Stool 0 Other: Voiding Method Toilet Toilet Toilet Urinal Urinal Urinal # Voids 3 1 1 # Bowel Movements 0 - Exam GENERAL: The patient is alert and oriented x3, not in any acute distress. Well developed, well nourished. HEENT: Pupils are round and equally reacting to light. EOMI. No scleral icterus. No conjunctival pallor. Normocephalic, atraumatic. No pharyngeal erythema. No thyromegaly. CARDIOVASCULAR: S1 and S2 present. No murmurs, rubs, or gallops. PULMONARY: Chest is clear to auscultation, no wheezing or crackles. ABDOMEN: Soft, nontender, nondistended, normoactive bowel sounds. No palpable organomegaly. MUSCULOSKELETAL: No joint swelling or deformity. EXTREMITIES: No cyanosis, clubbing. Positive edema , positive scrotal edema- nontender, no redness NEUROLOGICAL: Gross neurological examination did not reveal any focal deficits. SKIN: multiple skin lesions-psoriatic appearing patches. - Labs CBC & Chem 7: 05/23/17 13:25 05/25/17 07:10 Labs: Abnormal Lab Results - Last 24 Hours (Table) 05/24/17 05/24/17 05/25/17 Range/Units 16:30 20:09 07:01 Potassium (3.5-5.1) mmol/L BUN (9-20) mg/dL Glucose (74-99) mg/dL POC Glucose (mg/dL) 132 H 139 H 129 H (75-99) mg/dL 05/25/17 05/25/17 Range/Units 07:10 11:21 Potassium 5.6 H (3.5-5.1) mmol/L BUN 27 H (9-20) mg/dL Glucose 109 H (74-99) mg/dL POC Glucose (mg/dL) 129 H (75-99) mg/dL Microbiology - Last 24 Hours (Table) 05/24/17 13:13 Blood Culture - Preliminary Blood No Growth after 24 hours 05/24/17 17:11 Urine Culture - Preliminary Urine,Voided Assessment and Plan Plan: #1 scrotal swelling probably related to hydrocele, doubt scrotal cellulitis, epidimitis or orchitis-per ID #2 hypotension, borderline #3 diabetes mellitus type II: #4 morbid obesity with sleep apnea uses CPAP at home #5 hyperlipidemia Plan: Continue on current medication regime ,monitoring and symptomatic treatment. Diurese-Lasix ordered and scrotal elevation. Maintain fluid restrictions. Potassium 5.6, Kayexalate ordered. Close monitoring of electrolytes and renal function with repeat labs ordered for a.m. Dilaudid added for improved pain management. Borderline hypotensive and antihypertensives decreased. Increase ambulation as tolerated. Further recommendations to follow. The impression and plan of care has been dictated as directed. : I performed a H&P examination of this patient and discussed the same with the dictator. I agree with the dictator's note. Any additional findings/opinions/ etc. will be noted.
[2017-05-25 17:13] LABS: Glucose,Whole Blood 127 mg/dL (75-99)
[2017-05-25 20:05] LABS: Glucose,Whole Blood 140 mg/dL (75-99)
[2017-05-25] MEDS: HEPARIN SODIUM,PORCINE 5,000 UNIT/ML 1 ML VIAL SQ SCH (21:19)
[2017-05-25] MEDS: ATORVASTATIN 10 MG TAB PO SCH (21:20)
[2017-05-26] MEDS: HYDROmorphone 1 MG/ML 1 ML SYRINGE IVP PRN ×4 (01:55→21:56)
[2017-05-26] MEDS: HYDROcodone/APAP 7.5-325MG 1 EACH TAB PO PRN ×3 (03:54→17:48)
[2017-05-26 06:50] LABS: Basophils % (A) 1 %; CH 27.2; CHCM 31.2; Eosinophils # (A) 0.4 k/uL (0-0.7); Eosinophils % (A) 7 %; HCT 29.1 % (39.0-53.0); HDW 3.15; HGB 9.3 gm/dL (13.0-17.5); Hypochromasia Moderate; Luc # (Auto) 0.12; Luc % (Auto) 3; Lymphocytes # (A) 1.1 k/uL (1.0-4.8); Lymphocytes % (A) 22 %; MCHC 31.9 g/dL (31.0-37.0); MCV 87.8 fL (80.0-100.0); Mean Platelet Volume 8.3; Monocytes # (A) 0.3 k/uL (0-1.0); Monocytes % (A) 6 %; Neutrophils # (A) 3.1 k/uL (1.3-7.7); Neutrophils % (A) 62 %; RBC 3.31 m/uL (4.30-5.90); RDW 14.8 % (11.5-15.5); WBC (Perox) 5.08
[2017-05-26 07:08] LABS: Anion Gap 6 mmol/L; Blood Urea Nitrogen 24 mg/dL (9-20); Calcium 8.9 mg/dL (8.4-10.2); Carbon Dioxide 29 mmol/L (22-30); Chloride 103 mmol/L (98-107); Glucose 119 mg/dL (74-99); Non-African American GFR(MDRD) >60 (>60 ml/min/1.73 sqM); Potassium 5.5 mmol/L (3.5-5.1); Sodium 138 mmol/L (137-145)
[2017-05-26] MEDS: PANTOPRAZOLE 40 MG TABLET PO SCH ×2 (07:16→17:43)
[2017-05-26] MEDS: HEPARIN SODIUM,PORCINE 5,000 UNIT/ML 1 ML VIAL SQ SCH ×2 (07:16→20:32)
[2017-05-26] MEDS: METOPROLOL TARTRATE 25 MG TAB PO SCH ×2 (07:17→20:31)
[2017-05-26] MEDS: INSULIN LISPRO (humaLOG) 300 UNIT/3 ML VIAL SQ SCH ×4 (07:18→21:25)
[2017-05-26 07:53] LABS: Glucose,Whole Blood 129 mg/dL (75-99)
[2017-05-26] MEDS ORDERED: FUROSEMIDE 10 MG/ML 2 ML VIAL IV SCH (09:00)
[2017-05-26 11:47] LABS: Glucose,Whole Blood 147 mg/dL (75-99)
[2017-05-26] MEDS: SODIUM POLYSTYRENE SULFONATE 15 GM/60 ML BOTTLE PO STA ×2 (12:55→12:56)
[2017-05-26 18:38] LABS: Glucose,Whole Blood 145 mg/dL (75-99)
[2017-05-26 20:27] LABS: Glucose,Whole Blood 123 mg/dL (75-99)
[2017-05-26] MEDS: ATORVASTATIN 10 MG TAB PO SCH (20:32)
[2017-05-26] MEDS: FUROSEMIDE 10 MG/ML 2 ML VIAL IV SCH (20:32)
[2017-05-27] MEDS: HYDROmorphone 1 MG/ML 1 ML SYRINGE IVP PRN ×4 (03:32→22:07)
[2017-05-27] MEDS: PANTOPRAZOLE 40 MG TABLET PO SCH ×2 (07:50→16:59)
[2017-05-27] MEDS: HEPARIN SODIUM,PORCINE 5,000 UNIT/ML 1 ML VIAL SQ SCH ×2 (07:51→20:46)
[2017-05-27] MEDS: INSULIN LISPRO (humaLOG) 300 UNIT/3 ML VIAL SQ SCH ×4 (07:51→20:46)
[2017-05-27] MEDS: FUROSEMIDE 10 MG/ML 2 ML VIAL IV SCH (07:51)
[2017-05-27] MEDS: METOPROLOL TARTRATE 25 MG TAB PO SCH ×2 (07:51→20:46)
[2017-05-27] MEDS: HYDROcodone/APAP 7.5-325MG 1 EACH TAB PO PRN ×2 (07:56→11:59)
[2017-05-27 07:59] LABS: Glucose,Whole Blood 127 mg/dL (75-99)
[2017-05-27 11:46] LABS: Glucose,Whole Blood 134 mg/dL (75-99)
--- NOTE | 2017-05-27 12:39 | PN ---
PROGRESS NOTE DATE OF SERVICE: 05/26/17 INTERVAL HISTORY: This 42-year-old gentleman admitted with scrotal cellulitis, hydrocele, also had some fluid overload also. No chest pain. No palpitations. No fever. PHYSICAL EXAM: Alert oriented times three. Pulse is 63, blood pressure 142/58, respiration 18, temperature 98 degrees, pulse ox 94% on room air. HEENT: Conjunctivae normal. Neck: No jugular venous distention. Cardiovascular: S1, S2. Respiratory: Breath sounds diminished at the bases. No rhonchi. No crackles. ABDOMEN: Soft, nontender. Scrotal edema and cellulitis and hydrocele present. Legs: Bilateral leg edema. Central nervous system: No focal deficits. LABS: Hemoglobin 9.3. ASSESSMENT: 1. Scrotal cellulitis and hydrocele and severe pain and epididymal orchitis. 2. Hypotension. Borderline. 3. Diabetes type 2. 4. Morbid obesity. 5. Hyperlipidemia. RECOMMENDATIONS AND DISCUSSION: Continue current medications. Continue symptomatic treatment. Continue diuretics. Monitor blood sugars closely. Monitor creatinine closely. Otherwise Kayexalate for mild hyperkalemia. Further recommendations to follow. Low potassium diet. MMODL / IJN: [id number] /
[2017-05-27 14:15] LABS: Basophils # (A) 0.1 k/uL (0-0.2); Basophils % (A) 1 %; CH 27.2; CHCM 31.3; Eosinophils # (A) 0.4 k/uL (0-0.7); Eosinophils % (A) 8 %; HCT 34.8 % (39.0-53.0); HDW 3.31; HGB 11.3 gm/dL (13.0-17.5); Hypochromasia Moderate; Luc # (Auto) 0.18; Luc % (Auto) 3; Lymphocytes # (A) 1.4 k/uL (1.0-4.8); Lymphocytes % (A) 26 %; MCH 28.4 pg (25.0-35.0); MCHC 32.6 g/dL (31.0-37.0); MCV 87.2 fL (80.0-100.0); Mean Platelet Volume 8.6; Monocytes # (A) 0.4 k/uL (0-1.0); Monocytes % (A) 8 %; Neutrophils # (A) 2.9 k/uL (1.3-7.7); Neutrophils % (A) 54 %; RBC 3.99 m/uL (4.30-5.90); RDW 14.7 % (11.5-15.5); WBC 5.4 k/uL (3.8-10.6); WBC (Perox) 5.64
[2017-05-27 14:33] LABS: Anion Gap 10 mmol/L; Blood Urea Nitrogen 23 mg/dL (9-20); Calcium 9.9 mg/dL (8.4-10.2); Carbon Dioxide 29 mmol/L (22-30); Chloride 99 mmol/L (98-107); Glucose 143 mg/dL (74-99); Non-African American GFR(MDRD) >60 (>60 ml/min/1.73 sqM); Potassium 5.2 mmol/L (3.5-5.1); Sodium 138 mmol/L (137-145)
[2017-05-27] MEDS: ceFAZolin 2 GM in SODIUM CHLORIDE 0.9% 100 ML IVPB SCH (16:46)
[2017-05-27 17:29] LABS: Glucose,Whole Blood 125 mg/dL (75-99)
[2017-05-27 19:54] LABS: Glucose,Whole Blood 168 mg/dL (75-99)
[2017-05-27] MEDS ORDERED: FUROSEMIDE 10 MG/ML 4 ML VIAL IV SCH (21:00)
[2017-05-27] MEDS: FUROSEMIDE 10 MG/ML 4 ML VIAL IV SCH (22:08)
[2017-05-28] MEDS: ceFAZolin 2 GM in SODIUM CHLORIDE 0.9% 100 ML IVPB SCH ×2 (00:01→07:56)
[2017-05-28] MEDS: HYDROcodone/APAP 7.5-325MG 1 EACH TAB PO PRN (00:21)
[2017-05-28] MEDS: HYDROmorphone 1 MG/ML 1 ML SYRINGE IVP PRN ×2 (05:13→11:55)
[2017-05-28 07:12] LABS: Basophils # (A) 0.1 k/uL (0-0.2); Basophils % (A) 1 %; CH 27.4; CHCM 31.6; Eosinophils # (A) 0.5 k/uL (0-0.7); Eosinophils % (A) 9 %; HCT 32.7 % (39.0-53.0); HDW 3.29; HGB 10.3 gm/dL (13.0-17.5); Hypochromasia Moderate; Luc # (Auto) 0.18; Luc % (Auto) 4; Lymphocytes # (A) 1.2 k/uL (1.0-4.8); Lymphocytes % (A) 24 %; MCH 27.5 pg (25.0-35.0); MCHC 31.6 g/dL (31.0-37.0); Mean Platelet Volume 8.2; Monocytes # (A) 0.4 k/uL (0-1.0); Monocytes % (A) 8 %; Neutrophils # (A) 2.7 k/uL (1.3-7.7); Neutrophils % (A) 54 %; RBC 3.76 m/uL (4.30-5.90); RDW 14.6 % (11.5-15.5); WBC (Perox) 5.38
[2017-05-28 07:28] LABS: Anion Gap 10 mmol/L; Blood Urea Nitrogen 25 mg/dL (9-20); Calcium 9.4 mg/dL (8.4-10.2); Carbon Dioxide 28 mmol/L (22-30); Chloride 100 mmol/L (98-107); Glucose 136 mg/dL (74-99); Non-African American GFR(MDRD) >60 (>60 ml/min/1.73 sqM); Potassium 5.2 mmol/L (3.5-5.1); Sodium 138 mmol/L (137-145)
[2017-05-28 07:32] LABS: Glucose,Whole Blood 145 mg/dL (75-99)
[2017-05-28] MEDS: FUROSEMIDE 10 MG/ML 4 ML VIAL IV SCH (07:56)
[2017-05-28] MEDS: INSULIN LISPRO (humaLOG) 300 UNIT/3 ML VIAL SQ SCH ×2 (07:57→11:57)
[2017-05-28] MEDS: HEPARIN SODIUM,PORCINE 5,000 UNIT/ML 1 ML VIAL SQ SCH (07:57)
[2017-05-28] MEDS: PANTOPRAZOLE 40 MG TABLET PO SCH (07:57)
[2017-05-28] MEDS: METOPROLOL TARTRATE 25 MG TAB PO SCH (07:57)
--- NOTE | 2017-05-28 08:40 | PN ---
PROGRESS NOTE DATE OF SERVICE: 05/27/2017 This is a progress note. INTERVAL HISTORY: This 42-year-old gentleman admitted with scrotal cellulitis and edema and hydrocele is being closely monitored. No chest pain. No palpitations. No fever. PHYSICAL EXAM: Alert and oriented times three. Pulse is 64, blood pressure 129/66, respiration 18, temperature is 97.8, pulse ox 97% on room air. HEENT: Conjunctivae normal. Neck: No jugular venous distention. Cardiovascular: S1, S2. Respiratory: Breath sounds diminished in the bases. Scattered rhonchi. ABDOMEN: Soft, nontender. Legs without edema. Scrotal cellulitis and tenderness was noted as well. Central nervous system: No focal deficits. LAB STUDIES: WBC 5.2, hemoglobin 7.3. ASSESSMENT: 1. Scrotal cellulitis and hydrocele with severe pain and epididymal orchitis. 2. Borderline hypotension transiently. 3. Diabetes type 2. 4. Morbid obesity. 5. Hyperlipidemia. RECOMMENDATIONS AND DISCUSSION: Continue current management and medications and continue IV diuretics. Otherwise the intake and output and weights are not accurate. We will continue to monitor. Guarded prognosis because of multiple complex medical issues. Further recommendations to follow. MMODL / IJN: [id number] /
[2017-05-28 11:51] LABS: Glucose,Whole Blood 161 mg/dL (75-99)
[2017-05-28 14:51] VITALS: BP 112/57; PULSE 65; RESP 16; TEMP 97.9
--- NOTE | 2017-05-29 00:40 | P.DS ---
Providers Date of admission: 05/23/17 14:52 Attending physician: Jabari Rawls Consults: 05/24/17 11:55 Consult Physician Routine Consulting Provider: Vinicius Barksdale Consult Reason/Comments: Scrotal cellulitis Do you want consulting provider notified?: Yes 05/24/17 11:58 Consult Physician Routine Consulting Provider: Vicente Randle Consult Reason/Comments: hydrocele Do you want consulting provider notified?: Yes Primary care physician: Jeanne Calvary Hospital Course: This 42-year-old gentleman was admitted with scrotal cellulitis and had received with a severe pain and epididymoorchitis. Patient treated symptomatically. Patient also had generalized anasarca. Treated with Lasix and pain medications. Improved significantly. Recommended outpatient follow- up with the primary physician. On exam vitals stable. S1-S2 normal. Respirator set. Oscillation. Abdomen soft nontender. bilateral leg edema plus. Bilateral hydrocele and scrotal cellulitis also present. The patient will be discharged in a stable condition with a guarded prognosis. Patient was started on Lasix 40 mg by mouth twice a day. Kidney functions to be followed up closely in the outpatient setting. Lasix dose to be decreased depending upon improvement in the generalized anasarca. Monitor BUN/creatinine closely in the preceding. Instructions given to the patient. Final diagnosis 1. Scrotal cellulitis and hydrocele with severe pain and epididymoorchitis. 2. Generalized anasarca. 3. Borderline hypotension transiently. 4. Diabetes was type II. 5. Morbid obesity. 5. Hyperlipidemia. Patient Condition at Discharge: Good Plan - Discharge Summary New Discharge Prescriptions: New Cephalexin [Keflex] 500 mg PO Q6HR #28 cap Furosemide [Lasix] 40 mg PO BID #60 tablet Continue Insulin Lispro Protamin/Lispro [humaLOG Mix 75-25 Kwikpen] 30 unit SQ HS Cyclobenzaprine [Flexeril] 10 mg PO HS PRN PRN Reason: Muscle Spasm HYDROcodone/APAP 7.5-325MG [[place] 7.5-325] 1 tab PO Q6HR Atorvastatin [Lipitor] 10 mg PO HS Nitroglycerin 0.4 mg SL Q5M PRN PRN Reason: Chest Pain Carvedilol [Coreg] 6.25 mg PO BID Aspirin 81 mg PO DAILY ALPRAZolam [Xanax] 0.25 mg PO TID PRN #20 tab PRN Reason: Anxiety Pantoprazole [Protonix] 40 mg PO BID #60 tab hydrALAZINE HCL [Apresoline] 100 mg PO TID Insulin Lispro Protamin/Lispro [humaLOG Mix 75-25 Kwikpen] 35 unit SQ QAM Lisinopril 40 mg PO DAILY Metoprolol Tartrate [Lopressor] 75 mg PO DAILY Discharge Medication List Insulin Lispro Protamin/Lispro [humaLOG Mix 75-25 Kwikpen] 30 unit SQ HS [History] Atorvastatin [Lipitor] 10 mg PO HS 09/05/16 [History] Cyclobenzaprine [Flexeril] 10 mg PO HS PRN 09/05/16 [History] HYDROcodone/APAP 7.5-325MG [[place] 7.5-325] 1 tab PO Q6HR 09/05/16 [History] Nitroglycerin 0.4 mg SL Q5M PRN 12/20/16 [History] Aspirin 81 mg PO DAILY 02/12/17 [History] Carvedilol [Coreg] 6.25 mg PO BID 02/12/17 [History] ALPRAZolam [Xanax] 0.25 mg PO TID PRN #20 tab 02/16/17 [Rx] Pantoprazole [Protonix] 40 mg PO BID #60 tab 02/16/17 [Rx] Insulin Lispro Protamin/Lispro [humaLOG Mix 75-25 Kwikpen] 35 unit SQ QAM [History] Lisinopril 40 mg PO DAILY 05/23/17 [History] Metoprolol Tartrate [Lopressor] 75 mg PO DAILY 05/23/17 [History] hydrALAZINE HCL [Apresoline] 100 mg PO TID 05/23/17 [History] Cephalexin [Keflex] 500 mg PO Q6HR #28 cap 05/28/17 [Rx] Furosemide [Lasix] 40 mg PO BID #60 tablet 05/28/17 [Rx] Follow up Appointment(s)/Referral(s): Jeanne Celeste MD [Primary Care Provider] - 1-2 days [facility], [NON-STAFF] - 1 Week Ambulatory/Diagnostic Orders: Complete Blood Count w/diff [LAB.AMB] Location: Determined By Patient Patient Instructions/Handouts: Cephalexin (By mouth), Furosemide (By mouth), Hydrocele (DC), Renal Failure Diet (GEN), Abscess (GEN) Activity/Diet/Wound Care/Special Instructions: diet consistent carb act as tolerated LASIX dose to be adjusted out patient once the edema is better. monitor BUN/ Creat Discharge Disposition: HOME SELF-CARE
== END 2017-05-28 15:05 | disposition home or self-care (01) ==
LOC: EC 12:12 → 5MS5E 14:52
PROVIDERS: ADMIT Hospitalist; ATTEND Hospitalist
DX: N45.3 Epididymo-orchitis (principal); N43.3 Hydrocele, unspecified; N49.2 Inflammatory disorders of scrotum; E11.9 Type 2 diabetes mellitus without complications; E78.5 Hyperlipidemia, unspecified; E87.70 Fluid overload, unspecified; I10 Essential (primary) hypertension; G47.30 Sleep apnea, unspecified; I95.9 Hypotension, unspecified; T50.1X5A Adverse effect of loop [high-ceiling] diuretics, initial encounter; E66.01 Morbid (severe) obesity due to excess calories; L40.9 Psoriasis, unspecified; E87.5 Hyperkalemia; Z79.899 Other long term (current) drug therapy; Z79.4 Long term (current) use of insulin; Z79.891 Long term (current) use of opiate analgesic; Z79.82 Long term (current) use of aspirin; Z99.89 Dependence on other enabling machines and devices; Z89.421 Acquired absence of other right toe(s); Z86.14 Personal history of Methicillin resistant Staphylococcus aureus infection; Z89.411 Acquired absence of right great toe; Z86.718 Personal history of other venous thrombosis and embolism; Z68.41 Body mass index [BMI] 40.0-44.9, adult; Z83.3 Family history of diabetes mellitus; Z79.01 Long term (current) use of anticoagulants
CPT/HCPCS: 96376 ×6; 96365; 96366; 96372 ×5; 96375 ×2; 99285; 36415; 94760; 93005; 80053; 80048 ×4; 83036; 82550; 82553; 83735; 84100; 85025 ×4; 85610; 85730; 81003; 87040; 87086; 93975; 76870; G0378 ×6; J2270 ×2; J1644 ×4; J1940 ×7; J0690 ×2; J1650 ×2; J1170 ×4

== ENCOUNTER → 2017-10-03 | Outpatient (CLI) | payer OTHER ==
--- NOTE | 2017-10-03 16:43 | NM ---
EXAMINATION TYPE: NM bone 3 phase DATE OF EXAM: 10/03/2017 COMPARISON: NONE HISTORY: E 11.40, open wound right foot post amputation 8 years ago Triple phase bone scintigraphy was performed following the injection of27.3 mCi Tc 99m MDP. Immediat e images and 5.5 hours post injection images acquired. FINDINGS: Increased blood flow is noted in the region of the forefoot at the right lower extremity on blood estee w and blood pool imaging at the level of the first and second digits. Delayed imaging shows more foca l uptake at the level of the distal first digit, post amputation changes are questioned. Uptake withi n the midfoot of the left greater than right foot on delayed imaging may be due to degenerative [place]o e. IMPRESSION: Findings are suspicious for osteomyelitis at the level of patient's open wound of the localization is somewhat less specific on immediate images than on delayed images. MRI may be of benefit. Plain film correlation may be of benefit. There may be cellulitis.
== END | disposition home or self-care (01) ==
LOC: RADNMMAIN 07:23
PROVIDERS: ATTEND Family Medicine
DX: E11.40 Type 2 diabetes mellitus with diabetic neuropathy, unspecified (principal)
CPT/HCPCS: 78315; A9503

== ENCOUNTER 2017-12-27 08:19 | Day surgery (SDC) | payer OTHER ==
[~2017-12-27 08:19] MED LIST: LACTATED RINGERS 1,000 ML IV SCH
[2017-12-27] MEDS ORDERED: LACTATED RINGERS 1,000 ML IV ONE (08:35)
[2017-12-27] MEDS ORDERED: LIDOCAINE 1% 20 ML VIAL (10MG/ML) FOR IV START INTRADERMA ONE (08:35)
[2017-12-27 08:36] VITALS: TEMP 97.4
[2017-12-27 08:40] LABS: Glucose,Whole Blood 155 mg/dL (75-99)
[2017-12-27] MEDS ORDERED: PROPOFOL 10 MG/ML 20 ML VIAL IV ONE (10:08)
[2017-12-27] MEDS ORDERED: LIDOCAINE 1% INJ 10MG/ML (20 ML MDV) ONE (10:08)
[2017-12-27] MEDS ORDERED: GLYCOPYRROLATE 0.2 MG/ML 2 ML VIAL ONE (10:08)
[2017-12-27 10:36] VITALS: RESP 16
[2017-12-27 10:47] VITALS: BP 158/91; PULSE 69
--- NOTE | 2017-12-27 10:52 | P.PCN ---
Date of Procedure: 12/27/17 Procedure(s) Performed: BRIEF HISTORY: Patient is a 42-year-old, pleasant, pleasant white male, scheduled for an upper endoscopy as well as colonoscopy as a part of evaluation of iron deficiency anemia. He does have history of esophageal perforation 3 years ago for which she underwent distal esophagectomy with gastric pull- through. He denies any abdominal pain, nausea vomiting, rectal bleeding or melena. Because of iron deficiency anemia he scheduled for an upper endoscopy as well as colonoscopy today. However the patient states that his prep did not work yesterday and hence colonoscopy will be rescheduled We'll proceed with an upper endoscopy. PROCEDURE PERFORMED: Esophagogastroduodenoscopy with biopsy. PREOPERATIVE DIAGNOSIS:. Iron deficiency anemia. IV sedation per anesthesia. PROCEDURE: After informed consent was obtained, the patient was brought into the endoscopy unit. IV sedation was administered by Anesthesia under continuous monitoring. Initially the Olympus GIF-140 video endoscope was inserted into the mouth. Esophagus intubated without any difficulty. It was gradually advanced into the stomach and duodenum and carefully examined. The bulb and the second part of the duodenum appeared normal. Biopsies were done from the duodenum to rule out CBD disease. The scope at this time was withdrawn to the stomach, adequately insufflated with air, and upon careful examination, mucosa of the antrum had patchy areas of erythema and biopsies were done from this area. The body, cardia and the fundus appeared normal. The scope was then withdrawn into the esophagus. The GE anastomosis as located at 26 cm from the incisors. There were erosions with circumferential erythema consistent with reflux esophagitis. the rest of the esophagus appeared normaland the patient tolerated the procedure well. IMPRESSION: 1. Esophagitis at the anastomosis. 2. Mild antral gastritis. RECOMMENDATIONS: The findings of this examination were discussed with the patient as well as his family. He was advised to follow with the biopsy results. Colonoscopy will be rescheduled for a later date .
== END 2017-12-27 11:37 | disposition home or self-care (01) ==
LOC: ORWHC2ENDO 08:19
PROVIDERS: ATTEND Internal Medicine Gastroenterology
DX: K22.10 Ulcer of esophagus without bleeding (principal); K29.70 Gastritis, unspecified, without bleeding; D50.9 Iron deficiency anemia, unspecified; Z87.19 Personal history of other diseases of the digestive system; Z90.49 Acquired absence of other specified parts of digestive tract; I10 Essential (primary) hypertension; E78.5 Hyperlipidemia, unspecified; G47.33 Obstructive sleep apnea (adult) (pediatric); Z99.89 Dependence on other enabling machines and devices; E11.9 Type 2 diabetes mellitus without complications; R56.9 Unspecified convulsions; Z79.82 Long term (current) use of aspirin; Z79.4 Long term (current) use of insulin; Z79.891 Long term (current) use of opiate analgesic; Z79.899 Other long term (current) drug therapy
CPT/HCPCS: 88305; 43239; J2001; J2704

== ENCOUNTER → 2018-01-05 | Outpatient (CLI) | payer OTHER | END | disposition home or self-care (01) | LOC: RADMRIMAIN 11:32 | PROVIDERS: ATTEND Psychiatry & Neurology Neurology | DX: Z53.9 Procedure and treatment not carried out, unspecified reason (principal) ==

== ENCOUNTER 2019-03-14 17:31 | Inpatient (IN) | payer OTHER ==
[2019-03-14] MEDS ORDERED: MORPHINE SULFATE 4 MG/ML SYRINGE IVP STA (18:14)
[2019-03-14] MEDS ORDERED: ACETAMINOPHEN TAB 500 MG TAB PO STA (18:14)
[2019-03-14] MEDS ORDERED: IBUPROFEN 600 MG TAB PO STA (18:14)
[2019-03-14] MEDS ORDERED: ONDANSETRON 4 MG/2 ML VIAL IVP STA (18:15)
[2019-03-14 18:41] LABS: Partial Thromboplastin Time 23.3 sec (22.0-30.0); Prothrombin Time 10.3 sec (9.0-12.0)
[2019-03-14 18:42] LABS: ALT 15 U/L (21-72); AST 18 U/L (17-59); African American GFR (CKD) >90 (>60 ml/min/1.73 sqM); Albumin 4.3 g/dL (3.5-5.0); Alkaline Phosphatase 83 U/L (38-126); Anion Gap 12 mmol/L; Blood Urea Nitrogen 24 mg/dL (9-20); Carbon Dioxide 21 mmol/L (22-30); Chloride 103 mmol/L (98-107); Glucose 302 mg/dL (74-99); Potassium 5.1 mmol/L (3.5-5.1); Sodium 136 mmol/L (137-145); Total Bilirubin 0.6 mg/dL (0.2-1.3); Total Protein 7.2 g/dL (6.3-8.2)
[2019-03-14 18:43] LABS: Basophils # (A) 0.1 k/uL (0-0.2); Basophils % (A) 0 %; Eosinophils % (A) 0 %; HCT 38.7 % (39.0-53.0); HGB 12.1 gm/dL (13.0-17.5); Hypochromasia Moderate; Lymphocytes # (A) 0.9 k/uL (1.0-4.8); Lymphocytes % (A) 6 %; MCH 25.5 pg (25.0-35.0); MCHC 31.3 g/dL (31.0-37.0); MCV 81.6 fL (80.0-100.0); Mean Platelet Volume 8.3; Monocytes # (A) 0.6 k/uL (0-1.0); Monocytes % (A) 4 %; Neutrophils # (A) 13.4 k/uL (1.3-7.7); Neutrophils % (A) 89 %; Platelet Count 227 k/uL (150-450); RBC 4.75 m/uL (4.30-5.90); RDW 14.7 % (11.5-15.5); WBC 15.1 k/uL (3.8-10.6)
[2019-03-14] MEDS: SODIUM CHLORIDE 0.9% 500 ML 500 ML IV SCH ×2 (18:44→18:45)
--- NOTE | 2019-03-14 18:46 | ED ---
General Adult HPI - General Chief complaint: Wound/Laceration Stated complaint: diabetic ulcer Time Seen by Provider: 03/14/19 18:01 Source: patient Mode of arrival: ambulatory Limitations: no limitations - History of Present Illness Initial comments: 43-year-old male patient with past medical history significant for diabetes mellitus and peripheral neuropathy presents to the emergency department today for evaluation of a wound to the right foot. Patient states that he has had chronic wounds to the foot for the last few years. Patient states he had been well healed. States that over the last 2 days has had increased pain to the foot with radiation up the leg to the groin. Patient states that today he started to feel quite unwell. States he is feeling weak, dizzy, and chilled. States that he has developed a headache. Patient states also his insulin was recently changed to insurance and his sugars have been less controlled than usual. Patient generally receives wound care at [facility] with Dr. Barksdale, but was discharged recently. Patient denies any recent rash, shortness breath, chest pain, abdominal pain, nausea, vomiting, diarrhea, constipation, back pain, numbness, tingling, hematuria, dysuria, urinary urgency, urinary frequency, headache, visual changes, or any other complaints. - Related Data Home Medications Medication Instructions Recorded Confirmed Insulin Lispro Protamin/Lispro 30 unit SQ HS 06/14/15 12/27/17 [humaLOG Mix 75-25 Kwikpen] Atorvastatin [Lipitor] 10 mg PO HS 09/05/16 12/27/17 Cyclobenzaprine [Flexeril] 10 mg PO HS PRN 09/05/16 12/27/17 HYDROcodone/APAP 7.5-325MG [[place] 1 tab PO Q6HR 09/05/16 12/27/17 7.5-325] Nitroglycerin 0.4 mg SL Q5M PRN 12/20/16 12/27/17 Aspirin 81 mg PO DAILY 02/12/17 12/27/17 Carvedilol [Coreg] 6.25 mg PO BID 02/12/17 12/27/17 Insulin Lispro Protamin/Lispro 35 unit SQ QAM 05/23/17 12/27/17 [humaLOG Mix 75-25 Kwikpen] Lisinopril 40 mg PO DAILY 05/23/17 12/27/17 Metoprolol Tartrate [Lopressor] 75 mg PO DAILY 05/23/17 12/27/17 hydrALAZINE HCL [Apresoline] 100 mg PO TID 05/23/17 12/27/17 Previous Rx's Medication Instructions Recorded ALPRAZolam [Xanax] 0.25 mg PO TID PRN #20 tab 02/16/17 Pantoprazole [Protonix] 40 mg PO BID #60 tab 02/16/17 Cephalexin [Keflex] 500 mg PO Q6HR #28 cap 05/28/17 Furosemide [Lasix] 40 mg PO BID #60 tablet 05/28/17 Allergies Allergy/AdvReac Type Severity Reaction Status Date / Time No Known Allergies Allergy Verified 03/14/19 17:35 Review of Systems ROS Statement: Those systems with pertinent positive or pertinent negative responses have been documented in the HPI. ROS Other: All systems not noted in ROS Statement are negative. 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 no cpap used, hx blood clot mike arms. infection in rt second toe osteomyelitis(pt stated toe was amputated). " loose stools"seizure as , wound lt great foot/goes to [facility] on sun History of Any Multi-Drug Resistant Organisms: MRSA Date of last positivie culture/infection: 06/17/15 MDRO Source:: Chest abscess Past Surgical History: Tonsillectomy Additional Past Surgical History / Comment(s): bronchial cyst removed, esophagus clipped and removed, stomach stretching, pt reports 35 different procedures on esophogus, amputation rt great toe and toe next to great toe, picc line 16-since removed, i&d chest wound Past Anesthesia/Blood Transfusion Reactions: No Reported Reaction Past Psychological History: No Psychological Hx Reported Smoking Status: Never smoker Past Alcohol Use History: Occasional Past Drug Use History: None Reported - Past Family History Father Family Medical History: Diabetes Mellitus Additional Family Medical History / Comment(s): ETOH Mother Family Medical History: No Reported History General Exam Limitations: no limitations General appearance: alert, in no apparent distress, other (This is a well- developed, well-nourished adult male patient in no acute distress. Vital signs upon presentation are temperature 102.6F, pulse 110, respirations 20, blood pressure 126/76, pulse ox 99% on room air.) Eye exam: Present: normal appearance, PERRL, EOMI. Absent: scleral icterus, conjunctival injection, periorbital swelling ENT exam: Present: normal exam, normal oropharynx, mucous membranes moist Respiratory exam: Present: normal lung sounds bilaterally. Absent: respiratory distress, wheezes, rales, rhonchi, stridor Cardiovascular Exam: Present: regular rate, normal rhythm, normal heart sounds. Absent: systolic murmur, diastolic murmur, rubs, gallop, clicks GI/Abdominal exam: Present: soft, normal bowel sounds. Absent: distended, tenderness, guarding, rebound, rigid Extremities exam: Present: full ROM, normal capillary refill, other (There is diabetic ulcer noted to the plantar surface of the right foot over the first MTP joint.). Absent: normal inspection, tenderness, pedal edema, joint swelling, calf tenderness Neurological exam: Present: alert, oriented X3, CN II-XII intact Psychiatric exam: Present: normal affect, normal mood Skin exam: Present: warm, dry, intact, normal color. Absent: rash Course Vital Signs 03/14/19 03/14/19 03/14/19 17:33 18:18 19:27 Temperature 100.1 F H 102.6 F H 100.0 F H Pulse Rate 110 H 86 Respiratory 20 18 Rate Blood Pressure 126/76 119/58 O2 Sat by Pulse 99 97 Oximetry EKG Findings - EKG Comments: EKG Findings:: EKG obtained at 1823 shows normal sinus rhythm with a ventricular rate of 97, SC interval 166, QRS duration 98, QT 328, QTC 416. No evidence of ST elevation or depression. Medical Decision Making - Medical Decision Making 43-year-old male patient presented to the emergency department today for evaluation of increased pain to a diabetic ulcer on the right foot. Patient is reporting pain radiating up to his groin. Patient is febrile at 102.6F. White blood cell count is 15. Blood sugar elevated at 300. Patient will be admitted to the hospital for IV antibiotics and further evaluation by wound care and infectious disease. Patient verbalizes understanding and agrees with this plan. - Lab Data Result diagrams: 03/14/19 18:14 03/14/19 18:14 Lab Results 03/14/19 03/14/19 03/14/19 Range/Units 18:14 18:14 18:14 WBC 15.1 H (3.8-10.6) k/uL RBC 4.75 (4.30-5.90) m/uL Hgb 12.1 L (13.0-17.5) gm/dL Hct 38.7 L (39.0-53.0) % MCV 81.6 (80.0-100.0) fL MCH 25.5 (25.0-35.0) pg MCHC 31.3 (31.0-37.0) g/dL RDW 14.7 (11.5-15.5) % Plt Count 227 (150-450) k/uL Neutrophils % 89 % Lymphocytes % 6 % Monocytes % 4 % Eosinophils % 0 % Basophils % 0 % Neutrophils # 13.4 H (1.3-7.7) k/uL Lymphocytes # 0.9 L (1.0-4.8) k/uL Monocytes # 0.6 (0-1.0) k/uL Eosinophils # 0.0 (0-0.7) k/uL Basophils # 0.1 (0-0.2) k/uL Hypochromasia Moderate PT (9.0-12.0) sec INR (<1.2) APTT (22.0-30.0) sec Sodium 136 L (137-145) mmol/L Potassium 5.1 (3.5-5.1) mmol/L Chloride 103 (98-107) mmol/L Carbon Dioxide 21 L (22-30) mmol/L Anion Gap 12 mmol/L BUN 24 H (9-20) mg/dL Creatinine 1.16 (0.66-1.25) mg/dL Est GFR (CKD-EPI)AfAm >90 (>60 ml/min/1.73 sqM) Est GFR (CKD-EPI)NonAf 78 (>60 ml/min/1.73 sqM) Glucose 302 H (74-99) mg/dL Plasma Lactic Acid Phong 1.9 (0.7-2.0) mmol/L Calcium 9.0 (8.4-10.2) mg/dL Total Bilirubin 0.6 (0.2-1.3) mg/dL AST 18 (17-59) U/L ALT 15 L (21-72) U/L Alkaline Phosphatase 83 (38-126) U/L Total Protein 7.2 (6.3-8.2) g/dL Albumin 4.3 (3.5-5.0) g/dL Urine Color Urine Appearance (Clear) Urine pH (5.0-8.0) Ur Specific [place] (1.001-1.035) Urine Protein (Negative) Urine Glucose (UA) (Negative) Urine Ketones (Negative) Urine Blood (Negative) Urine Nitrite (Negative) Urine Bilirubin (Negative) Urine Urobilinogen (<2.0) mg/dL Ur Leukocyte Esterase (Negative) Urine RBC (0-5) /hpf Urine WBC (0-5) /hpf Ur Squamous Epith Cells (0-4) /hpf Urine Bacteria (None) /hpf Hyaline Casts (0-2) /lpf Urine Mucus (None) /hpf 03/14/19 03/14/19 Range/Units 18:14 18:36 WBC (3.8-10.6) k/uL RBC (4.30-5.90) m/uL Hgb (13.0-17.5) gm/dL Hct (39.0-53.0) % MCV (80.0-100.0) fL MCH (25.0-35.0) pg MCHC (31.0-37.0) g/dL RDW (11.5-15.5) % Plt Count (150-450) k/uL Neutrophils % % Lymphocytes % % Monocytes % % Eosinophils % % Basophils % % Neutrophils # (1.3-7.7) k/uL Lymphocytes # (1.0-4.8) k/uL Monocytes # (0-1.0) k/uL Eosinophils # (0-0.7) k/uL Basophils # (0-0.2) k/uL Hypochromasia PT 10.3 (9.0-12.0) sec INR 1.0 (<1.2) APTT 23.3 (22.0-30.0) sec Sodium (137-145) mmol/L Potassium (3.5-5.1) mmol/L Chloride (98-107) mmol/L Carbon Dioxide (22-30) mmol/L Anion Gap mmol/L BUN (9-20) mg/dL Creatinine (0.66-1.25) mg/dL Est GFR (CKD-EPI)AfAm (>60 ml/min/1.73 sqM) Est GFR (CKD-EPI)NonAf (>60 ml/min/1.73 sqM) Glucose (74-99) mg/dL Plasma Lactic Acid Phong (0.7-2.0) mmol/L Calcium (8.4-10.2) mg/dL Total Bilirubin (0.2-1.3) mg/dL AST (17-59) U/L ALT (21-72) U/L Alkaline Phosphatase (38-126) U/L Total Protein (6.3-8.2) g/dL Albumin (3.5-5.0) g/dL Urine Color Yellow Urine Appearance Clear (Clear) Urine pH 5.5 (5.0-8.0) Ur Specific [place] 1.038 H (1.001-1.035) Urine Protein 2+ H (Negative) Urine Glucose (UA) 4+ H (Negative) Urine Ketones Trace H (Negative) Urine Blood Small H (Negative) Urine Nitrite Negative (Negative) Urine Bilirubin Negative (Negative) Urine Urobilinogen 3.0 (<2.0) mg/dL Ur Leukocyte Esterase Negative (Negative) Urine RBC 3 (0-5) /hpf Urine WBC 2 (0-5) /hpf Ur Squamous Epith Cells 3 (0-4) /hpf Urine Bacteria Rare H (None) /hpf Hyaline Casts 4 H (0-2) /lpf Urine Mucus Rare H (None) /hpf - Radiology Data Radiology results: report reviewed, image reviewed 3 views of the right foot are obtained. Report was reviewed in its entirety. Impression by Dr. Nieves shows multiple amputation deformities. No evidence of osteomyelitis. Disposition Clinical Impression: Diabetic ulcer of right foot, Sepsis Disposition: ADMITTED IP TO THIS [facility] Condition: Serious Referrals: Jeanne Celeste MD [Primary Care Provider] - 1-2 days Decision to Admit Reason: Admit from EC Decision Date: 03/14/19 Decision Time: 20:02
[2019-03-14 18:47] LABS: Appearance,Urine Clear (Clear); Bacteria,Urine Rare /hpf; Bilirubin,Urine Negative (Negative); Blood,Urine Small (Negative); Color,Urine Yellow; Glucose,Urine (UA) 4+ (Negative); Hyaline Casts,Urine 4 /lpf (0-2); Ketones,Urine Trace (Negative); Leukocyte Esterase,Urine Negative (Negative); Mucus,Urine Rare /hpf; Nitrite,Urine Negative (Negative); PH, Urine 5.5 (5.0-8.0); Protein,Urine 2+ (Negative); RBC,Urine 3 /hpf (0-5); Specific Gravity,Urine 1.038 (1.001-1.035); Squamous Epithelial Cell,Urine 3 /hpf (0-4); WBC,Urine 2 /hpf (0-5)
--- NOTE | 2019-03-14 19:32 | XR ---
EXAMINATION TYPE: XR foot complete RT DATE OF EXAM: 03/14/2019 COMPARISON: NONE HISTORY: Diabetic ulcers TECHNIQUE: 3 views FINDINGS: There is amputation of the little toe at the level of the mid shaft of the fifth metatarsal . There is amputation of the second toe at the level of the PIP joint. There is amputation of the big toe at the level of the base of the proximal phalanx. I see no focal bone destruction. IMPRESSION: Multiple amputation deformities. No evidence of osteomyelitis.
[2019-03-14] MEDS ORDERED: NALOXONE 0.4 MG/ML 1 ML VIAL IV PRN (19:57)
[2019-03-14] MEDS ORDERED: ONDANSETRON 4 MG/2 ML VIAL IVP PRN (19:57)
[2019-03-14] MEDS ORDERED: PIPERACILLIN-TAZOBACTAM 3.375 GM in SODIUM CHLORIDE 0.9% 100 ML IVPB STA (19:59)
[2019-03-14] MEDS: MORPHINE SULFATE 4 MG/ML SYRINGE IV PRN (20:36)
[2019-03-14 21:22] LABS: Glucose,Whole Blood 238 mg/dL (75-99)
[2019-03-14 22:33] VITALS: BMI 44.9
[2019-03-14] MEDS: INSULIN ASPART (NovoLOG) 100 UNIT/ML VIAL SQ SCH (22:39)
[2019-03-14] MEDS ORDERED: INSULIN DETEMIR (LEVEMIR) 100 UNIT/ML SYR SQ SCH (23:45)
[2019-03-15] MEDS ORDERED: ACETAMINOPHEN TAB 325 MG TAB PO PRN (00:01)
[2019-03-15] MEDS: traZODone HCL 50 MG TAB PO SCH ×2 (00:02→20:55)
[2019-03-15] MEDS: MORPHINE SULFATE 4 MG/ML SYRINGE IV PRN ×5 (00:03→20:56)
[2019-03-15] MEDS ORDERED: NITROGLYCERIN SL TABS 0.4 MG TAB SUBLINGUAL PRN (01:35)
[2019-03-15] MEDS ORDERED: TEMAZEPAM 15 MG CAP PO PRN (01:37)
[2019-03-15] MEDS ORDERED: ALPRAZolam 0.25 MG TAB PO PRN (01:37)
[2019-03-15] MEDS ORDERED: VANCOMYCIN IVPB ONE (01:40)
[2019-03-15] MEDS ORDERED: VANCOMYCIN IV PER PHARMACY 1 EACH MISC MISCELLANE PRN (01:40)
[2019-03-15] MEDS ORDERED: SODIUM CHLORIDE 0.9% IVPB ONE (01:40)
[2019-03-15] MEDS: HEPARIN SODIUM,PORCINE 5,000 UNIT/ML 1 ML VIAL SQ SCH ×3 (02:29→20:55)
[2019-03-15] MEDS: SODIUM CHLORIDE 0.9% 1,000 ML IV SCH (02:29)
[2019-03-15] MEDS: VANCOMYCIN 2,250 MG in SODIUM CHLORIDE 0.9% 500 ML 500 ML IVPB SCH ×2 (02:29→13:57)
[2019-03-15] MEDS: PIPERACILLIN-TAZOBACTAM 3.375 GM in SODIUM CHLORIDE 0.9% 100 ML IVPB SCH ×3 (06:12→20:56)
[2019-03-15] MEDS: HYDROcodone/APAP 7.5-325MG 1 EACH TAB PO PRN ×2 (07:11→19:39)
[2019-03-15 07:13] LABS: Glucose,Whole Blood 180 mg/dL (75-99)
[2019-03-15] MEDS: MULTIVITAMINS, THERA 1 EACH TAB PO SCH (07:45)
[2019-03-15] MEDS: PANTOPRAZOLE 40 MG TABLET PO SCH (07:45)
[2019-03-15] MEDS: CITALOPRAM HYDROBROMIDE 20 MG TAB PO SCH (07:45)
[2019-03-15] MEDS: GABAPENTIN 400 MG CAP PO SCH (07:45)
[2019-03-15] MEDS: INSULIN ASPART (NovoLOG) 100 UNIT/ML VIAL SQ SCH ×4 (07:45→20:58)
--- NOTE | 2019-03-15 08:09 | CT ---
EXAMINATION TYPE: CT foot RT wo con DATE OF EXAM: 03/15/2019 COMPARISON: Plain film dated 03/14/2019. HISTORY: infected diabetic ulcer of Rt great toe CT DLP: 222.9 mGycm Automated exposure control for dose reduction was used. FINDINGS: There is soft tissue edema about the foot particularly about the first and fifth metatarsal bases. There is a metallic foreign body present near the stump of the proximal phalanx of the great toe. This is likely a marker. There is no definite cortical destructive lesion. There has been an amp utation of the fifth metatarsal. There is some irregularity of the amputation site of this digit. IMPRESSION: 1. CONSIDERABLE SOFT TISSUE SWELLING ABOUT THE FIRST AND FIFTH METATARSALS WITHOUT A DEFINITE LOCULAT ED FLUID COLLECTION. 2. IRREGULARITY ALONG THE STUMP OF THE FIFTH METATARSAL BUT NO DEFINITE BONY DESTRUCTIVE LESION INVOL VING THE FIRST METATARSAL.
--- NOTE | 2019-03-15 09:00 | HP ---
HISTORY AND PHYSICAL DATE OF SERVICE: 03/14/2019 CHIEF COMPLAINT: Right toe ulcer. HISTORY OF PRESENT ILLNESS: This 43-year-old gentleman with a past medical history of multiple medical problems including diabetes, hypertension, hyperlipidemia, sleep apnea, history of tonsillectomy, anxiety, depression, being followed by Dr. Celeste in the outpatient setting was having diabetic foot and ulcerations for some time. Patient has diabetic peripheral neuropathy. The patient was also seen by Dr. Barksdale of Infectious Disease department. The patient apparently had a callus which has healed well and it broke open for the last couple of days according to him and the patient is complaining of some pain up the foot and also complaining of feeling weak and dizzy and chills also. The patient came to [facility] and admitted for further evaluation and treatment. Diabetic foot ulcer and infection was suspected and WBC 15.1. The patient also had foot x-rays which showed multiple amputation deformities. No evidence for osteomyelitis noted. The patient admitted for further evaluation and treatment. There is no history of fever, rigors or chills. No history of headache, loss of consciousness or seizures. PAST MEDICAL HISTORY: History of diabetes type 2, hypertension, hyperlipidemia, sleep apnea, history of tonsillectomy, anxiety, depression. MEDICATIONS: Prior to admission, home medications are: 1. Celexa 20 mg daily. 2. [place] 7.5 q.6h p.r.n. 3. Neurontin 400 mg p.o. daily. 4. Insulin lispro 15 units a.c. t.i.d. 5. Basaglar 25 units subcu q.h.s. 6. Nitroglycerin 0.4 sublingual p.r.n. 7. 50 mg p.o. q.h.s. ALLERGIES: None. FAMILY HISTORY: History of diabetes and EtOH in the family. SOCIAL HISTORY: History of occasional alcohol intake. No history of smoking. REVIEW OF SYSTEMS: ENT: No diminished vision. No diminished hearing. CARDIOVASCULAR: No angina or palpitations. RESPIRATIONS: No cough or hemoptysis. GI no nausea or vomiting. no dysuria or hematuria. NERVOUS SYSTEM: As mentioned earlier. ALLERGY/IMMUNOLOGY: No asthma or hayfever. MUSCULOSKELETAL: As mentioned earlier. HEMATOLOGY/ONCOLOGY: No history of anemia. ENDOCRINE: Diabetes mellitus. CONSTITUTIONAL: As mentioned earlier. DERMATOLOGY: As mentioned earlier. RHEUMATOLOGY: Negative. PSYCHIATRIC: As mentioned earlier. PHYSICAL EXAM: Patient is alert, oriented x three. Pulse 86, blood pressure 119/50. Respiration 18, temperature 100 degrees, pulse ox 97% on room air. HEENT: Conjunctivae normal. Oral mucosa moist. NECK is no jugular venous distention. No carotid bruit. No lymph node enlargement. Cardiovascular system: S1, S2 muffled. No S3, no S4. RESPIRATORY: Breath sounds diminished in the bases. A few scattered rhonchi and crackles. ABDOMEN: Soft, obese, nontender. No mass palpable. LEGS: Pulses diminished bilaterally. Peripheral neuropathy findings also present. The right foot great toe area is swollen, minimal tenderness. Some fluctuation also noted. Multiple amputations present. NERVOUS SYSTEM: Higher functions as mentioned earlier, moves all four limbs. No motor deficits or sensory abnormalities in the feet, history of peripheral neuropathy, as mentioned earlier. SKIN as mentioned earlier. JOINTS no active deforming arthropathy. LYMPHATICS: No lymph nodes palpable in the neck, axillae or groin. LABS: WBC 15.1, hemoglobin 12.1 sodium 136, potassium 5.1. UA noted. ASSESSMENT: 1. Right foot diabetic foot infection with possible sepsis, present on admission. 2. Increased WBC. 3. Anemia of chronic disease. 4. Hyponatremia. 5. Diabetes mellitus type 2. 6. Obesity with body mass of 44.9. 7. Hypertension. 8. Hyperlipidemia. 9. Sleep apnea. 10.History of esophageal surgery with complications and feeding tube for 17 months. 11.History of tonsillectomy. 12.History of anxiety, depression. RECOMMENDATIONS AND DISCUSSION: This 43-year-old gentleman who presented with multiple complex medical issues, we will monitor the patient closely, continue the current medications. Continue symptomatic treatment. Broad-spectrum IV antibiotics. I would also recommend consultation with Dr. Mckeon as well as Dr. Barksdale. CT scan of the foot also will be recommended. Guarded prognosis because of multiple complex medical problems. Copy of dictation being forwarded to Dr. Celeste who is the primary physician. MMSATISH / ANA ROSA: [id number] / MTDD
[2019-03-15 09:28] LABS: Basophils % (A) 0 %; Eosinophils # (A) 0.2 k/uL (0-0.7); Eosinophils % (A) 2 %; HCT 36.3 % (39.0-53.0); HGB 10.9 gm/dL (13.0-17.5); Hypochromasia Moderate; Lymphocytes % (A) 10 %; MCH 25.1 pg (25.0-35.0); MCHC 30.2 g/dL (31.0-37.0); MCV 83.3 fL (80.0-100.0); Mean Platelet Volume 7.7; Monocytes # (A) 0.5 k/uL (0-1.0); Monocytes % (A) 5 %; Neutrophils # (A) 8.1 k/uL (1.3-7.7); Neutrophils % (A) 82 %; Platelet Count 193 k/uL (150-450); RBC 4.35 m/uL (4.30-5.90); RDW 14.8 % (11.5-15.5)
[2019-03-15 09:36] LABS: African American GFR (CKD) >90 (>60 ml/min/1.73 sqM); Anion Gap 7 mmol/L; Blood Urea Nitrogen 24 mg/dL (9-20); Calcium 8.6 mg/dL (8.4-10.2); Carbon Dioxide 27 mmol/L (22-30); Chloride 104 mmol/L (98-107); Glucose 268 mg/dL (74-99); Sodium 138 mmol/L (137-145)
--- NOTE | 2019-03-15 09:41 | P.PN ---
Progress Note - Text Progress Note Date: 03/15/19 Consultation was placed for Dr. Coles for possible right foot wound abcess for surgical recommendations. This gentleman did see Dr. Coles in the wound care center in 2017 for left foot diabetic wound, including debridement. He has followed over the last [address] Barksdale at [facility]. Upon entering the room to assess the patient, he indicated that he did not want to see Dr. Coles, only Dr. Barksdale. I explained that Dr. Barksdale was consulted and would be caring for the patient, but Dr. Coles was consulted in case surgical intervention was needed. The patient reiterated that he didn't want to work with Dr. Coles and wanted to see Dr. Barksdale exclusively. This was discussed with Dr. Rawls and Dr. Coles. We would be happy to see the patient should he change his mind. Thank you Dr. Rawls for the consult.
[2019-03-15 11:57] LABS: Glucose,Whole Blood 261 mg/dL (75-99)
--- NOTE | 2019-03-15 15:33 | PN ---
PROGRESS NOTE DATE OF SERVICE: 03/15/2019. This 43-year-old gentleman who was admitted with significant infection of the foot, diabetic foot. is being closely monitored. No chest pain. No palpitations. No fever. Foot CAT scan did not show any active abscesses. Dr. Barksdale is following the patient. Patient on broad spectrum IV antibiotics. Patient also seen by Dr. Mckeon previously for amputations. No chest pain. No palpitation. EXAM: Alert and oriented x3. Pulse 83. Blood pressure 126/79, respiration 18, temperature 97 degrees, pulse ox 98% on room air. HEENT: Conjunctivae normal. NECK: No jugular venous distention. CARDIOVASCULAR: S1, S2 muffled. RESPIRATION: Breath sounds diminished at the bases. No rhonchi. No crackles. ABDOMEN: Soft, nontender. LEGS: Right foot significant swelling and tenderness in the mid toe area present. Otherwise, multiple amputations present. NERVOUS SYSTEM: No focal deficits. LABS: WBC 10, hemoglobin 10.9, glucose 268. ASSESSMENT: 1. Right foot diabetic foot infection with possible sepsis present on admission. 2. Increased WBC. 3. Anemia of chronic disease. 4. Hyponatremia. 5. Diabetes type 2. 6. Obesity with body mass index 44.9. 7. Hypertension. 8. Hyperlipidemia. 9. Sleep apnea. 10.History of esophageal surgery with multiple complications. The feeding tube for 17 months. 11.History of tonsillectomy. 12.History of anxiety, depression. RECOMMENDATIONS AND DISCUSSION: Recommend to continue current medications, management and symptomatic treatment. Otherwise, at this time, we will continue the broad spectrum IV antibiotics and obtain the cultures. The patient is on Zosyn and vancomycin. We will get vascular surgery and as well as infectious disease evaluation. Guarded prognosis because of multiple complex medical issues. Further recommendations to follow. See orders for details. Hemoglobin A1c will be ordered next week. The patient understands and agrees. Medication brewer, I would increase the Levemir night to 35 units. Continue to monitor for better diabetic control. MMODL / IJN: [id number] /
[2019-03-15 16:48] LABS: Glucose,Whole Blood 175 mg/dL (75-99)
[2019-03-15 20:55] LABS: Glucose,Whole Blood 246 mg/dL (75-99)
[2019-03-15] MEDS ORDERED: INSULIN DETEMIR (LEVEMIR) 100 UNIT/ML SYR SQ SCH (21:00)
--- NOTE | 2019-03-15 22:47 | P.CONS ---
History of Present Illness - Reason for Consult Consult date: 03/15/19 Right diabetic foot infection Requesting physician: Jabari Rawls - Chief Complaint Right foot swelling redness and fever - History of Present Illness Patient is a 43-year-old male well known to my service for a patient with previous history of bilateral diabetic foot infection that has required multiple amputations the patient had did have a right big toe amputation done by Dr. Mckeon and he did have a wound at the amputated site is subsequently healed up and was covered with a callus over the last few days and the patient seemed to be complaining of not feeling well and is here presented to hospital he did have a right his and chills and a fever on her today for right patient has been complaining of more discomfort in the right foot area more of a dull aching pain 3-4 out of 10 and no radiation with associated swelling and redness of the right foot and drainage from a wound on the plantar aspect of the right foot at the site of the right big toe amputation , patient on admission to the hospital did have a fever of 102 degrees Fahrenheit patient did have elevated white count of 15,[address] of the right foot which did show soft tissue swelling but no evidence of any abscess of bony destruction patient has been started on Zosyn and vancomycin and infectious disease was consulted for further recommendation regarding antibiotic therapy, patient had did have previous history of vancomycin associated nephrotoxicity Review of Systems CONSTITUTIONAL: Positive for weakness. Fever EYES: No complaint. ENT:No complaint. RESPIRATORY: No complaint. CARDIOVASCULAR: No complaint. GENITOURINARY: No complaint. GASTROINTESTINAL: No complaint. MUSCULOSKELETAL: As per history of present illness INTEGUMENTARY: As per history of present illness. PSYCHOLOGICAL: No complaint. ENDOCRINE: No complaint. NEUROLOGIC: No complaint. 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 no cpap used, hx blood clot mike arms. infection in rt second toe osteomyelitis(pt stated toe was amputated). " loose stools"seizure as infant, wound lt great foot/go[facility] to [facility] on sun History of Any Multi-Drug Resistant Organisms: MRSA Year Discovered:: 06/17/15 MDRO Source:: Chest abscess Past Surgical History: Tonsillectomy Additional Past Surgical History / Comment(s): bronchial cyst removed, esophagus clipped and removed, stomach stretching, pt reports 35 different procedures on esophogus, amputation rt great toe and toe next to great toe, picc line 03-03-16-since removed, i&d chest wound Past Anesthesia/Blood Transfusion Reactions: No Reported Reaction Past Psychological History: Anxiety, Depression Smoking Status: Never smoker Past Alcohol Use History: Occasional Past Drug Use History: None Reported - Past Family History Father Family Medical History: Diabetes Mellitus Additional Family Medical History / Comment(s): ETOH Mother Family Medical History: No Reported History Medications and Allergies Home Medications Medication Instructions Recorded Confirmed Type HYDROcodone/APAP 7.5-325MG [[place] 1 tab PO Q6HR PRN 09/05/16 03/14/19 History 7.5-325] Nitroglycerin 0.4 mg SL Q5M PRN 12/20/16 03/14/19 History Citalopram Hydrobromide [CeleXA] 20 mg PO DAILY 03/14/19 03/14/19 History Gabapentin [Neurontin] 400 mg PO DAILY 03/14/19 03/14/19 History Insulin Glargine,Hum.rec.anlog 25 unit PO HS 03/14/19 03/14/19 History [Basaglar Kwikpen U-100] Insulin Lispro [Admelog] 15 units SQ AC-TID 03/14/19 03/14/19 History traZODone HCL [Desyrel] 50 mg PO HS 03/14/19 03/14/19 History Allergies Allergy/AdvReac Type Severity Reaction Status Date / Time No Known Allergies Allergy Verified 03/14/19 20:42 Physical Exam Vitals: Vital Signs Temp Pulse Pulse Resp BP BP Pulse Ox 03/15/19 09:09 95 03/15/19 06:13 97.0 F L 63 18 126/79 98 03/14/19 21:20 97.0 F L 88 20 128/61 100 03/14/19 20:38 99.0 F 79 18 110/83 97 03/14/19 19:27 100.0 F H 86 18 119/58 97 03/14/19 18:18 102.6 F H 03/14/19 17:33 100.1 F H 110 H 20 126/76 99 Intake and Output 03/14/19 03/15/19 03/15/19 22:59 06:59 14:59 Other: Voiding Method Toilet Bedside Commode Urinal # Voids 0 Weight 154.221 kg GENERAL DESCRIPTION: Middle-aged male lying in bed, no distress. No tachypnea or accessory muscle of respiration use. HEENT: Shows Pallor , no scleral icterus. Oral mucous membrane is dry. No pharyngeal erythema or thrush NECK: Trachea central, no thyromegaly. LUNGS: Unlabored breathing. Clear to auscultation anteriorly. No wheeze or crackle. HEART: S1, S2, regular rate and rhythm. No loud murmur ABDOMEN: Soft, no tenderness , guarding or rigidity, no organomegaly EXTREMITIES: Right foot big toe amputated site callus with a small wound some surrounding swelling redness minimal drainage foul-smelling SKIN: No rash, no masses palpable. NEUROLOGICAL: The patient is awake, alert, oriented x3, mood and affect normal Results CBC & Chem 7: 03/15/19 08:59 03/15/19 08:59 Labs: Abnormal Lab Results - Last 24 Hours (Table) 03/14/19 03/14/19 03/14/19 Range/Units 18:14 18:14 18:36 WBC 15.1 H (3.8-10.6) k/uL Hgb 12.1 L (13.0-17.5) gm/dL Hct 38.7 L (39.0-53.0) % MCHC (31.0-37.0) g/dL Neutrophils # 13.4 H (1.3-7.7) k/uL Lymphocytes # 0.9 L (1.0-4.8) k/uL Sodium 136 L (137-145) mmol/L Carbon Dioxide 21 L (22-30) mmol/L BUN 24 H (9-20) mg/dL Glucose 302 H (74-99) mg/dL POC Glucose (mg/dL) (75-99) mg/dL ALT 15 L (21-72) U/L Ur Specific Carpenter 1.038 H (1.001-1.035) Urine Protein 2+ H (Negative) Urine Glucose (UA) 4+ H (Negative) Urine Ketones Trace H (Negative) Urine Blood Small H (Negative) Urine Bacteria Rare H (None) /hpf Hyaline Casts 4 H (0-2) /lpf Urine Mucus Rare H (None) /hpf 03/14/19 03/15/19 03/15/19 Range/Units 21:18 07:11 08:59 WBC (3.8-10.6) k/uL Hgb 10.9 L (13.0-17.5) gm/dL Hct 36.3 L (39.0-53.0) % MCHC 30.2 L (31.0-37.0) g/dL Neutrophils # 8.1 H (1.3-7.7) k/uL Lymphocytes # (1.0-4.8) k/uL Sodium (137-145) mmol/L Carbon Dioxide (22-30) mmol/L BUN (9-20) mg/dL Glucose (74-99) mg/dL POC Glucose (mg/dL) 238 H 180 H (75-99) mg/dL ALT (21-72) U/L Ur Specific Carpenter (1.001-1.035) Urine Protein (Negative) Urine Glucose (UA) (Negative) Urine Ketones (Negative) Urine Blood (Negative) Urine Bacteria (None) /hpf Hyaline Casts (0-2) /lpf Urine Mucus (None) /hpf 03/15/19 Range/Units 08:59 WBC (3.8-10.6) k/uL Hgb (13.0-17.5) gm/dL Hct (39.0-53.0) % MCHC (31.0-37.0) g/dL Neutrophils # (1.3-7.7) k/uL Lymphocytes # (1.0-4.8) k/uL Sodium (137-145) mmol/L Carbon Dioxide (22-30) mmol/L BUN 24 H (9-20) mg/dL Glucose 268 H (74-99) mg/dL POC Glucose (mg/dL) (75-99) mg/dL ALT (21-72) U/L Ur Specific Carpenter (1.001-1.035) Urine Protein (Negative) Urine Glucose (UA) (Negative) Urine Ketones (Negative) Urine Blood (Negative) Urine Bacteria (None) /hpf Hyaline Casts (0-2) /lpf Urine Mucus (None) /hpf Microbiology - Last 24 Hours (Table) 03/14/19 18:14 Gram Stain - Preliminary Foot - Right Wound Culture - Preliminary 03/14/19 18:36 Urine Culture - Preliminary Urine,Clean Catch Assessment and Plan Assessment: 1-Patient admitted to hospital with sepsis in this patient who did have a fever tachycardia and elevated white count source is right diabetic foot infection in this patient who did have small wound at the right big toe amputated site with previous history of infection both with a gram-positive gram-negative pathogen and the Gram stain done on the swab that was collected from his right foot he showing both gram-positive as well as gram-negative pathogen CT has been negative for any abscess collection or bony destruction 2-patient with a history of vancomycin associated nephrotoxicity (1) Cellulitis of right foot Current Visit: Yes Status: Acute Code(s): L03.115 - CELLULITIS OF RIGHT LOWER LIMB SNOMED Code(s): 340855267 (2) Diabetic ulcer of right foot Current Visit: Yes Status: Acute Code(s): E11.621 - TYPE 2 DIABETES MELLITUS WITH FOOT ULCER; L97.519 - NON-PRS CHRONIC ULCER OTH PRT RIGHT FOOT W UNSP SEVERITY SNOMED Code(s): 464653675 (3) Sepsis Current Visit: Yes Status: Acute Code(s): A41.9 - SEPSIS, UNSPECIFIED ORGANISM SNOMED Code(s): 58054513 Plan: 1-patient will continue on Zosyn however discontinue the vancomycin keeping in mind his history of vancomycin associated nephrotoxicity in the past 2-we will add daptomycin 4 mg per KG to cover for gram-positive pathogen/MRSA we will follow up on clinical condition and cultures to further adjust me dication if needed Thank you for this consultation will follow this patient along with you Time with Patient: Greater than 30
[2019-03-16] MEDS: SODIUM CHLORIDE 0.9% 1,000 ML IV SCH (00:26)
[2019-03-16] MEDS: MORPHINE SULFATE 4 MG/ML SYRINGE IV PRN ×5 (03:58→20:20)
[2019-03-16] MEDS: PIPERACILLIN-TAZOBACTAM 3.375 GM in SODIUM CHLORIDE 0.9% 100 ML IVPB SCH ×3 (03:59→20:22)
[2019-03-16 07:13] LABS: Glucose,Whole Blood 253 mg/dL (75-99)
[2019-03-16] MEDS: MULTIVITAMINS, THERA 1 EACH TAB PO SCH (07:56)
[2019-03-16] MEDS: CITALOPRAM HYDROBROMIDE 20 MG TAB PO SCH (07:56)
[2019-03-16] MEDS: PANTOPRAZOLE 40 MG TABLET PO SCH (07:56)
[2019-03-16] MEDS: INSULIN ASPART (NovoLOG) 100 UNIT/ML VIAL SQ SCH ×6 (07:56→20:22)
[2019-03-16] MEDS: HEPARIN SODIUM,PORCINE 5,000 UNIT/ML 1 ML VIAL SQ SCH ×2 (07:57→20:21)
[2019-03-16] MEDS: GABAPENTIN 400 MG CAP PO SCH (07:57)
[2019-03-16 09:32] LABS: Basophils % (A) 1 %; Eosinophils # (A) 0.1 k/uL (0-0.7); Eosinophils % (A) 2 %; HCT 36.2 % (39.0-53.0); Hypochromasia Marked; Lymphocytes # (A) 0.9 k/uL (1.0-4.8); Lymphocytes % (A) 14 %; MCH 25.3 pg (25.0-35.0); MCHC 30.3 g/dL (31.0-37.0); MCV 83.7 fL (80.0-100.0); Mean Platelet Volume 8.2; Monocytes # (A) 0.3 k/uL (0-1.0); Monocytes % (A) 6 %; Neutrophils # (A) 4.5 k/uL (1.3-7.7); Neutrophils % (A) 76 %; Platelet Count 214 k/uL (150-450); RBC 4.33 m/uL (4.30-5.90); RDW 14.8 % (11.5-15.5); WBC 5.9 k/uL (3.8-10.6)
[2019-03-16 09:51] LABS: African American GFR (CKD) >90 (>60 ml/min/1.73 sqM); Anion Gap 9 mmol/L; Blood Urea Nitrogen 18 mg/dL (9-20); Calcium 8.8 mg/dL (8.4-10.2); Carbon Dioxide 26 mmol/L (22-30); Chloride 104 mmol/L (98-107); Glucose 227 mg/dL (74-99); Sodium 139 mmol/L (137-145)
--- NOTE | 2019-03-16 12:25 | PN ---
PROGRESS NOTE DATE OF SERVICE: 03/16/2019. REASON FOR FOLLOWUP: Right diabetic foot wound infection with cellulitis. INTERVAL HISTORY: The patient is currently afebrile. The patient is complaining of pain to the right foot wound area, more of 8/10 with some radiation to the right medial thigh and groin area. Denies having any chest pain or shortness of breath. No cough. No abdominal pain. No diarrhea. PHYSICAL EXAMINATION: Blood pressure is 111/57 with a pulse of 56, temperature 97.9. He is 96% on room air. General description is a middle-aged male lying in bed in no distress. Respiratory system: Unlabored breathing. Clear to auscultation anteriorly. HEART: S1, S2. Regular rate and rhythm. Abdomen is soft, no tenderness. Right foot plantar callus with some more redness noted today, but no drainage. LABS: Hemoglobin is 11, white count 5.9, BUN of 18, creatinine 0.90. DIAGNOSTIC IMPRESSION AND PLAN: Patient with right diabetic foot wound with secondary cellulitis. Wound showing more erythema today with concern for underlying abscess. We will reconsult Dr. Mckeon who has seen the patient in the past and did some of his amputation, excisional debridement of this callus and deep cultures. Continue with daptomycin and Rocephin adjusting based on the culture report. Continue supportive care. MMODL / IJN: [id number] /
[2019-03-16 12:34] LABS: Glucose,Whole Blood 179 mg/dL (75-99)
[2019-03-16 16:57] LABS: Glucose,Whole Blood 184 mg/dL (75-99)
--- NOTE | 2019-03-16 19:37 | PN ---
PROGRESS NOTE DATE OF SERVICE: 03/16/2019 This 43-year-old gentleman admitted with significant foot infection is being closely monitored. Patient on broad spectrum IV antibiotics. The right side of the foot is red and erythematous and slightly tender. Dr. Barksdale is following the patient. Vascular surgery evaluation has been sought. No chest pain. No palpitations. No fever. EXAM: Alert and oriented x3. Pulse 66, blood pressure 111/60, respiration 18, temp 97.9, pulse ox 97% on room air. HEENT: Conjunctivae normal. NECK: No jugular venous distention. CARDIOVASCULAR: S1, S2. RESPIRATIONS: Breath sounds diminished in the bases. A few scattered rhonchi and crackles. ABDOMEN is soft, nontender. LEGS are no edema. No swelling. Exam of the right foot erythema and tenderness around the right big toe, tender. Some fluctuation also noted. NERVOUS SYSTEM: No focal deficits. Peripheral neuropathy present. LAB STUDIES: WBC 5.2, hemoglobin 11, sodium 113. Other labs are noted. Glucose noted. ASSESSMENT: 1. Right diabetic foot infection with possible sepsis present on admission. Rule out abscess. 2. Increased WBC. 3. Anemia of chronic disease. 4. Hyponatremia. 5. Diabetes mellitus type 2. 6. Obesity with body mass index of 44.9. 7. Hypertension. 8. Hyperlipidemia. 9. Sleep apnea. 10.History of esophageal surgery with multiple complications previously with feeding tube for 17 months. 11.History of tonsillectomy. 12.History of anxiety, depression. DISCUSSION AND RECOMMENDATIONS: Recommend to continue current medications, management and symptomatic treatment. Continue the antibiotics. Otherwise, I would recommend the current medications. Monitor blood sugars closely. The Lantus dose has been increased. The patient also has some insurance issues regarding the availability of Lantus which I recommend the case management coordinator and Social Work to follow tomorrow. Otherwise prognosis guarded. Further recommendations to follow. MMODL / IJN: [id number] /
[2019-03-16 20:15] LABS: Glucose,Whole Blood 169 mg/dL (75-99)
[2019-03-16] MEDS: traZODone HCL 50 MG TAB PO SCH (20:21)
[2019-03-16] MEDS: INSULIN DETEMIR (LEVEMIR) 100 UNIT/ML SYR SQ SCH (21:09)
[2019-03-17] MEDS: MORPHINE SULFATE 4 MG/ML SYRINGE IV PRN ×6 (00:24→21:23)
[2019-03-17] MEDS: PIPERACILLIN-TAZOBACTAM 3.375 GM in SODIUM CHLORIDE 0.9% 100 ML IVPB SCH ×3 (04:08→21:23)
[2019-03-17 06:57] LABS: Glucose,Whole Blood 217 mg/dL (75-99)
[2019-03-17] MEDS: CITALOPRAM HYDROBROMIDE 20 MG TAB PO SCH (07:43)
[2019-03-17] MEDS: INSULIN ASPART (NovoLOG) 100 UNIT/ML VIAL SQ SCH ×7 (07:43→21:22)
[2019-03-17] MEDS: GABAPENTIN 400 MG CAP PO SCH (07:43)
[2019-03-17] MEDS: PANTOPRAZOLE 40 MG TABLET PO SCH (07:43)
[2019-03-17] MEDS: HEPARIN SODIUM,PORCINE 5,000 UNIT/ML 1 ML VIAL SQ SCH ×2 (07:44→21:22)
[2019-03-17 09:43] LABS: Basophils % (A) 1 %; Eosinophils # (A) 0.2 k/uL (0-0.7); Eosinophils % (A) 4 %; HGB 9.9 gm/dL (13.0-17.5); Hypochromasia Moderate; Lymphocytes % (A) 23 %; MCH 25.1 pg (25.0-35.0); MCHC 30.1 g/dL (31.0-37.0); MCV 83.5 fL (80.0-100.0); Mean Platelet Volume 8.4; Monocytes # (A) 0.2 k/uL (0-1.0); Monocytes % (A) 5 %; Neutrophils % (A) 66 %; Platelet Count 203 k/uL (150-450); RBC 3.95 m/uL (4.30-5.90); RDW 14.8 % (11.5-15.5); WBC 4.5 k/uL (3.8-10.6)
[2019-03-17 09:51] LABS: Hemoglobin A1C 10.1 % (4.0-6.0)
[2019-03-17 09:54] LABS: African American GFR (CKD) >90 (>60 ml/min/1.73 sqM); Anion Gap 6 mmol/L; Blood Urea Nitrogen 17 mg/dL (9-20); Calcium 8.9 mg/dL (8.4-10.2); Carbon Dioxide 29 mmol/L (22-30); Chloride 104 mmol/L (98-107); Glucose 198 mg/dL (74-99); Sodium 139 mmol/L (137-145)
[2019-03-17] MEDS: MULTIVITAMINS, THERA 1 EACH TAB PO SCH (11:17)
[2019-03-17 11:53] LABS: Glucose,Whole Blood 188 mg/dL (75-99)
[2019-03-17 16:57] LABS: Glucose,Whole Blood 185 mg/dL (75-99)
--- NOTE | 2019-03-17 17:56 | PN ---
PROGRESS NOTE DATE OF SERVICE: 03/17/2019 This 43-year-old gentleman who was admitted with right diabetic foot infection with possible sepsis is being closely monitored. No chest pain. No palpitations. No fever. On exam, alert and oriented x3. Pulse 72, blood pressure 107/68, respirations 16, temperature 97.9, pulse ox 97% on room air. HEENT: Conjunctivae normal. NECK: No jugular venous distention. CARDIOVASCULAR SYSTEM: S1, S2 muffled. RESPIRATORY SYSTEM: Breath sounds diminished at the bases. No rhonchi. No crackles. ABDOMEN: Soft, non-tender. LEGS: No edema. No swelling. Swelling and tenderness of the right foot present. NERVOUS SYSTEM: No focal deficit. LABS: WBC 4.5, hemoglobin 9.9. ASSESSMENT: 1. Right diabetic foot infection with possible sepsis, present on admission. Rule out abscess. 2. Increased white count. 3. Anemia of chronic disease. 4. Hyponatremia. 5. Diabetes mellitus, type 2. 6. Obesity with body mass index of 44.9. 7. Hypertension. 8. Hyperlipidemia. 9. Sleep apnea. 10.History of esophageal surgery with multiple complications previously with a feeding tube for 17 months. 11.History of tonsillectomy. 12.History of anxiety, depression. RECOMMENDATIONS AND DISCUSSION: I recommend to continue current medications, continue with the monitoring, symptomatic treatment. I recommend continuing with IV antibiotics. Follow closely with Infectious Disease. Vascular Surgery has been consulted for possible I&D. Prognosis extremely guarded. Patient has significant gait dysfunction. The patient might need prolonged IV antibiotic treatment, also. We will closely follow with Infectious Disease. Further recommendations to follow. MMODL / IJN: [id number] /
[2019-03-17 21:17] LABS: Glucose,Whole Blood 187 mg/dL (75-99)
[2019-03-17] MEDS: INSULIN DETEMIR (LEVEMIR) 100 UNIT/ML SYR SQ SCH (21:22)
[2019-03-17] MEDS: traZODone HCL 50 MG TAB PO SCH (21:23)
[2019-03-18] MEDS: MORPHINE SULFATE 4 MG/ML SYRINGE IV PRN ×6 (02:17→22:58)
[2019-03-18] MEDS: PIPERACILLIN-TAZOBACTAM 3.375 GM in SODIUM CHLORIDE 0.9% 100 ML IVPB SCH ×3 (04:01→20:25)
[2019-03-18] MEDS: HEPARIN SODIUM,PORCINE 5,000 UNIT/ML 1 ML VIAL SQ SCH ×2 (07:02→20:25)
[2019-03-18] MEDS: CITALOPRAM HYDROBROMIDE 20 MG TAB PO SCH (07:02)
[2019-03-18] MEDS: GABAPENTIN 400 MG CAP PO SCH (07:03)
[2019-03-18] MEDS: PANTOPRAZOLE 40 MG TABLET PO SCH (07:04)
[2019-03-18 07:14] LABS: Glucose,Whole Blood 249 mg/dL (75-99)
[2019-03-18] MEDS: INSULIN ASPART (NovoLOG) 100 UNIT/ML VIAL SQ SCH ×7 (07:54→21:07)
[2019-03-18 10:28] LABS: Basophils % (A) 1 %; Eosinophils # (A) 0.2 k/uL (0-0.7); Eosinophils % (A) 5 %; HCT 33.8 % (39.0-53.0); HGB 10.2 gm/dL (13.0-17.5); Hypochromasia Moderate; Lymphocytes # (A) 0.9 k/uL (1.0-4.8); Lymphocytes % (A) 24 %; MCH 25.1 pg (25.0-35.0); MCHC 30.1 g/dL (31.0-37.0); MCV 83.4 fL (80.0-100.0); Mean Platelet Volume 7.7; Monocytes # (A) 0.2 k/uL (0-1.0); Monocytes % (A) 6 %; Neutrophils # (A) 2.3 k/uL (1.3-7.7); Neutrophils % (A) 62 %; Platelet Count 224 k/uL (150-450); RBC 4.05 m/uL (4.30-5.90); RDW 14.7 % (11.5-15.5); WBC 3.7 k/uL (3.8-10.6)
[2019-03-18 11:01] LABS: African American GFR (CKD) >90 (>60 ml/min/1.73 sqM); Anion Gap 7 mmol/L; Blood Urea Nitrogen 17 mg/dL (9-20); Calcium 9.2 mg/dL (8.4-10.2); Carbon Dioxide 31 mmol/L (22-30); Chloride 102 mmol/L (98-107); Glucose 235 mg/dL (74-99); Potassium 5.4 mmol/L (3.5-5.1); Sodium 140 mmol/L (137-145)
[2019-03-18 11:44] LABS: Glucose,Whole Blood 228 mg/dL (75-99)
[2019-03-18] MEDS: MULTIVITAMINS, THERA 1 EACH TAB PO SCH (12:37)
--- NOTE | 2019-03-18 13:39 | PN ---
PROGRESS NOTE DATE OF SERVICE: 03/18/2019 REASON FOR FOLLOWUP: Right diabetic foot infection with cellulitis. INTERVAL HISTORY: The patient is currently afebrile. The patient did have bedside debridement of his right foot infected callus with no evidence of any deep penetration down to the bone. The patient still complaining of some pain, but no worsening. Denies having any chest pain or shortness of breath or cough. No abdominal pain or diarrhea. PHYSICAL EXAMINATION: On examination, blood pressure 125/84 with a pulse of 61, temperature 98. He is 97% on room air. General description is a middle aged male lying in bed in no distress. RESPIRATORY SYSTEM: Unlabored breathing, clear to auscultation anteriorly. HEART: S1, S2. Regular rate and rhythm. ABDOMEN: Soft. Right foot is currently dressed up. No obvious drainage on the dressing. Looking at the pictures taken at the time of debridement and the wound does not look deep. DIAGNOSTIC IMPRESSION AND PLAN: Patient with right diabetic foot infection with infected callus, status post beside debridement. Will wait for the culture to finalize to determine his discharge antibiotic, more likely oral. Continue with supportive care. MMODL / IJN: [id number] /
[2019-03-18 17:04] LABS: Glucose,Whole Blood 228 mg/dL (75-99)
--- NOTE | 2019-03-18 18:42 | PN ---
PROGRESS NOTE DATE OF SERVICE: 03/18/2019 This 43-year-old gentleman who was admitted with diabetic foot infection had bedside incision and drainage by Dr. Mckeon. Dr. Barksdale is following the patient closely. The cultures are negative so far. No chest pain. No palpitations. No fever. On exam, alert and oriented x3. Pulse is 61, blood pressure 125/84, respiration 20, temperature 98 degrees, pulse ox 97% on room air. HEENT: Conjunctivae normal. NECK: No jugular venous distention. CARDIOVASCULAR SYSTEM: S1, S2 muffled. RESPIRATORY SYSTEM: Breath sounds diminished at the bases. No rhonchi. No crackles. ABDOMEN: Soft, obese. LEGS: Right foot infection. NERVOUS SYSTEM: No focal deficit. LABS: WBC 3.7, hemoglobin 10.2. Sodium 140, potassium 5.4. ASSESSMENT: 1. Right diabetic foot infection with possible sepsis, present on admission; possibly abscess, status post incision and drainage. 2. Increased white count. 3. Anemia of chronic disease. 4. Hyponatremia. 5. Diabetes mellitus, type 2. 6. Obesity with body mass index of 44.9. 7. Hypertension. 8. Hyperlipidemia. 9. Sleep apnea. 10.History of esophageal surgery with multiple complications previously with a feeding tube for 17 months. 11.History of tonsillectomy. 12.Anxiety, depression. RECOMMENDATIONS AND DISCUSSION: I recommend to continue current medications, continue with the monitoring, symptomatic treatment. Cultures are pending at this time. Continue with IV antibiotics. Closely follow with Dr. Barksdale and Dr. Mckeon. Guarded prognosis. Further recommendations to follow. MMODL / IJN: [id number] /
[2019-03-18] MEDS: traZODone HCL 50 MG TAB PO SCH (20:25)
[2019-03-18 20:56] LABS: Glucose,Whole Blood 201 mg/dL (75-99)
[2019-03-18] MEDS: INSULIN DETEMIR (LEVEMIR) 100 UNIT/ML SYR SQ SCH (21:07)
[2019-03-19] MEDS: PIPERACILLIN-TAZOBACTAM 3.375 GM in SODIUM CHLORIDE 0.9% 100 ML IVPB SCH ×3 (05:44→19:57)
[2019-03-19 07:09] LABS: Glucose,Whole Blood 174 mg/dL (75-99)
[2019-03-19] MEDS: MORPHINE SULFATE 4 MG/ML SYRINGE IV PRN ×4 (07:31→19:56)
[2019-03-19] MEDS: INSULIN ASPART (NovoLOG) 100 UNIT/ML VIAL SQ SCH ×7 (07:32→20:57)
[2019-03-19] MEDS: MULTIVITAMINS, THERA 1 EACH TAB PO SCH (07:34)
[2019-03-19] MEDS: CITALOPRAM HYDROBROMIDE 20 MG TAB PO SCH (07:34)
[2019-03-19] MEDS: PANTOPRAZOLE 40 MG TABLET PO SCH (07:34)
[2019-03-19] MEDS: HEPARIN SODIUM,PORCINE 5,000 UNIT/ML 1 ML VIAL SQ SCH ×2 (07:35→19:57)
[2019-03-19] MEDS: GABAPENTIN 400 MG CAP PO SCH (07:36)
--- NOTE | 2019-03-19 09:05 | PN ---
PROGRESS NOTE This is a 43-year-old, diabetic male, known to me from the past. Patient had a had a right foot, big toe amputation done in the past and also patient had a left foot, fifth toe amputation in the past. Patient came with the history of infected callus on the right foot big stump, measurement is 1 x 1 cm. Callus with some redness and discharge noted. The patient has been seeing [facility] the [facility]. MEDICAL HISTORY: History of diabetes, no history of hypertension. PHYSICAL EXAMINATION: Femorals are palpable, right foot big toe has a stump which has a callus and infected, measurement is 1 x 1 cm with some redness and tenderness noted. CHEST: Clear. ABDOMEN: Soft. Femorals are palpable. PLAN: Debridement of the wound. Will follow with you. MMODL / IJN: [id number] /
--- NOTE | 2019-03-19 09:11 | PCN ---
PROCEDURE NOTE PREOPERATIVE DIAGNOSIS: Infected callus right foot, big toe stump. Measurement is 1 x 1 cm. PROCEDURE: Debridement of the wound down to subcutaneous tissue. This patient was seen, right foot was prepped and draped in a prior sterile manner. The patient had a callus on the right foot, big toe, 1 x 1 cm. Hurricaine spray were applied. Using scissors, patient has a callus, which was excised down to subcutaneous tissue. Underlying tissue was also debrided. We took some deep culture. No active bleeding was noted. PLAN: We will use Aquacel Silver. We changed the dressing every other 48 hours and we will wait for the culture report. Patient under care of Infectious Disease. MMODL / IJN: [id number] /
[2019-03-19 09:47] LABS: Basophils % (A) 0 %; Eosinophils # (A) 0.2 k/uL (0-0.7); Eosinophils % (A) 4 %; HCT 36.3 % (39.0-53.0); HGB 11.1 gm/dL (13.0-17.5); Hypochromasia Marked; Lymphocytes % (A) 20 %; MCH 25.6 pg (25.0-35.0); MCHC 30.5 g/dL (31.0-37.0); MCV 83.9 fL (80.0-100.0); Mean Platelet Volume 8.2; Monocytes # (A) 0.3 k/uL (0-1.0); Monocytes % (A) 6 %; Neutrophils # (A) 3.6 k/uL (1.3-7.7); Neutrophils % (A) 69 %; Platelet Count 246 k/uL (150-450); RBC 4.32 m/uL (4.30-5.90); RDW 14.6 % (11.5-15.5); WBC 5.2 k/uL (3.8-10.6)
[2019-03-19 09:51] LABS: African American GFR (CKD) >90 (>60 ml/min/1.73 sqM); Anion Gap 11 mmol/L; Blood Urea Nitrogen 17 mg/dL (9-20); Calcium 9.1 mg/dL (8.4-10.2); Carbon Dioxide 25 mmol/L (22-30); Chloride 105 mmol/L (98-107); Glucose 180 mg/dL (74-99); Potassium 4.6 mmol/L (3.5-5.1); Sodium 141 mmol/L (137-145)
[2019-03-19 12:31] LABS: Glucose,Whole Blood 216 mg/dL (75-99)
--- NOTE | 2019-03-19 15:53 | PN ---
PROGRESS NOTE DATE OF SERVICE: 03/19/2019 This 43-year-old gentleman who was admitted with right diabetic foot infection had incision and drainage. The cultures are pending at this time. No chest pain. No palpitations. No fever. On exam, alert and oriented x3. Pulse 55, blood pressure 114/75, respiration 20, temperature 97.4, pulse ox 96% on room air. HEENT: Conjunctivae normal. NECK: No jugular venous distention. CARDIOVASCULAR SYSTEM: S1, S2 muffled. RESPIRATORY SYSTEM: Breath sounds diminished at the bases. A few scattered rhonchi and crackles. ABDOMEN: Soft, non-tender. LEGS: No edema. No swelling. NERVOUS SYSTEM: No focal deficit. LABS: WBC 5.2, hemoglobin 11.1, glucose 180. ASSESSMENT: 1. Right diabetic foot ulcer with possible sepsis, present on admission, possibly abscess, status post incision and drainage. 2. Increased white count. 3. Anemia of chronic disease. 4. Hyponatremia. 5. Diabetes mellitus, type 2. 6. Obesity with body mass index 44.9. 7. Hypertension. 8. Hyperlipidemia. 9. Sleep apnea. 10.History of esophageal surgery with multiple complications previously with a feeding tube for 17 months. 11.History of tonsillectomy. 12.Anxiety, depression. RECOMMENDATIONS AND DISCUSSION: I recommend to continue current medications, continue with the monitoring, symptomatic treatment. Continue with the antibiotics. Await final ID reports. Otherwise, the patient requires a PICC line and IV antibiotics. ECF rehab may be an option. Otherwise, continue to monitor. Offloading shoes may be recommended per Dr. Mckeon or Dr. Barksdale. Guarded prognosis. Further recommendations to follow. MMODL / IJN: [id number] /
[2019-03-19 17:08] LABS: Glucose,Whole Blood 189 mg/dL (75-99)
--- NOTE | 2019-03-19 18:14 | PN ---
PROGRESS NOTE DATE OF SERVICE: 03/19/2019. REASON FOR FOLLOWUP: Right diabetic foot infection. INTERVAL HISTORY: The patient is currently afebrile. Denies having any chest pain, shortness of breath or cough. No nausea. No abdominal pain. Pain to the right foot area has improved. PHYSICAL EXAMINATION: Blood pressure is 115/55, with a pulse of 64, temperature 97.9. He is 98% on room air. General description is a middle-aged male lying in bed in no distress. Respiratory system: Unlabored breathing. Clear to auscultation anteriorly. HEART: S1, S2. Regular rate and rhythm. Abdomen soft, no tenderness. Right foot plantar wound with no slough tissue. Wound is not probing down to the bone. Some surrounding swelling, but the redness has improved. LABS: Hemoglobin is 11.1, white count 5.2, BUN of 17, creatinine 0.77. So far last blood cultures remain negative. DIAGNOSTIC IMPRESSION AND PLAN: Patient with right diabetic foot infection in this patient who did have an infected callus as well debridement of the same. The patient seemed to be showing overall improvement in his cellulitis while waiting for the culture to finalize to determine his discharge antibiotic will be mostly oral. Currently on daptomycin, cefepime to continue. No need for PICC line or outpatient antibiotic therapy. Continue supportive care. MMODL / IJN: [id number] /
[2019-03-19] MEDS: traZODone HCL 50 MG TAB PO SCH (19:57)
[2019-03-19 20:51] LABS: Glucose,Whole Blood 285 mg/dL (75-99)
[2019-03-19] MEDS: INSULIN DETEMIR (LEVEMIR) 100 UNIT/ML SYR SQ SCH (20:57)
[2019-03-20] MEDS: MORPHINE SULFATE 4 MG/ML SYRINGE IV PRN ×4 (00:33→11:38)
[2019-03-20] MEDS: PIPERACILLIN-TAZOBACTAM 3.375 GM in SODIUM CHLORIDE 0.9% 100 ML IVPB SCH ×2 (04:27→11:33)
[2019-03-20 05:49] VITALS: BP 102/69; PULSE 52; RESP 20; TEMP 96.4
[2019-03-20 07:18] LABS: Glucose,Whole Blood 169 mg/dL (75-99)
[2019-03-20] MEDS: GABAPENTIN 400 MG CAP PO SCH (08:25)
[2019-03-20] MEDS: INSULIN ASPART (NovoLOG) 100 UNIT/ML VIAL SQ SCH ×5 (08:25→13:02)
[2019-03-20] MEDS: CITALOPRAM HYDROBROMIDE 20 MG TAB PO SCH (08:26)
[2019-03-20] MEDS: PANTOPRAZOLE 40 MG TABLET PO SCH (08:26)
[2019-03-20] MEDS: MULTIVITAMINS, THERA 1 EACH TAB PO SCH (08:26)
[2019-03-20] MEDS: HEPARIN SODIUM,PORCINE 5,000 UNIT/ML 1 ML VIAL SQ SCH (08:26)
--- NOTE | 2019-03-20 10:53 | PN ---
PROGRESS NOTE DATE OF SERVICE: 03/20/2019 REASON FOR FOLLOWUP: Right diabetic foot wound and infected callus. INTERVAL HISTORY: The patient is currently afebrile. Patient has been breathing comfortably. Denies having any chest pain or any cough. No abdominal pain or any worsening pain in the right foot area. PHYSICAL EXAMINATION: Blood pressure is 102/69 with a pulse of 52, temperature 96.4. He is 97% on room air. General description is a middle-aged male, lying in bed in no distress. RESPIRATORY SYSTEM: Unlabored breathing, clear to auscultation anteriorly. HEART: S1, S2. Regular rate and rhythm. ABDOMEN: Soft, no tenderness. Right foot is currently dressed up, no obvious drainage on the dressing. LABS: No new labs been obtained today. Culture has been negative. DIAGNOSTIC IMPRESSION AND PLAN: Patient right diabetic foot infection. The patient did have infected callus, status post debridement of the callus. Culture so far has been negative for resistant pathogen. Antibiotic will be switched over to doxycycline 100 mg twice a day for 2 weeks. Local wound care with Aquacel Silver packing of the wound along with offloading shoes and to [facility]. Prescription has been sent to the pharmacy. MMODL / IJN: [id number] /
[2019-03-20 11:01] LABS: Basophils % (A) 1 %; Eosinophils # (A) 0.2 k/uL (0-0.7); Eosinophils % (A) 5 %; HCT 35.5 % (39.0-53.0); HGB 10.6 gm/dL (13.0-17.5); Hypochromasia Moderate; Lymphocytes # (A) 0.9 k/uL (1.0-4.8); Lymphocytes % (A) 21 %; MCH 24.8 pg (25.0-35.0); MCHC 29.7 g/dL (31.0-37.0); MCV 83.4 fL (80.0-100.0); Mean Platelet Volume 8.1; Monocytes # (A) 0.3 k/uL (0-1.0); Monocytes % (A) 6 %; Neutrophils # (A) 2.7 k/uL (1.3-7.7); Neutrophils % (A) 66 %; Platelet Count 255 k/uL (150-450); RBC 4.25 m/uL (4.30-5.90); RDW 14.7 % (11.5-15.5); WBC 4.1 k/uL (3.8-10.6)
[2019-03-20 11:14] LABS: African American GFR (CKD) >90 (>60 ml/min/1.73 sqM); Anion Gap 7 mmol/L; Blood Urea Nitrogen 17 mg/dL (9-20); Calcium 9.2 mg/dL (8.4-10.2); Carbon Dioxide 32 mmol/L (22-30); Chloride 101 mmol/L (98-107); Glucose 222 mg/dL (74-99); Sodium 140 mmol/L (137-145)
[2019-03-20 12:05] LABS: Glucose,Whole Blood 197 mg/dL (75-99)
--- NOTE | 2019-03-20 22:56 | DS ---
DISCHARGE SUMMARY DATE OF SERVICE: 03/20/2019. FINAL DIAGNOSES: 1. Right diabetic foot ulcer with possible sepsis present on admission possibly abscess status post incision and drainage with negative cultures so far. 2. Increased WBC. 3. Anemia of chronic disease. 4. Hyponatremia. 5. Diabetes type 2. 6. Obesity with body mass index 44.9. 7. Hypertension. 8. Hyperlipidemia. 9. Sleep apnea. 10.History of esophageal surgery with multiple complications previously with feeding tube for 17 months. 11.History of tonsillectomy. 12.Anxiety, depression. DISCHARGE DISPOSITION: The patient will be discharged in stable condition with guarded prognosis. Total time taken: 35 minutes. HISTORY OF PRESENT ILLNESS: This 43-year-old gentleman with a past medical history of multiple medical problems, admitted with diabetic foot and possibly abscess. Patient was given IV antibiotics. Incision and drainage done by bedside by Dr. Mckeon and patient seen by Infectious Disease, Dr. Barksdale. The patient has improved significantly. On exam, vitals signs are stable. Cardiovascular: S1, S2. Abdomen soft. Nervous System: No focal deficits. Infectious Disease recommended outpatient antibiotics. The patient will be discharged in stable condition with guarded prognosis. Offloading shoes also recommended. DISCHARGE ADVICE AND MEDICATIONS: 1. Diet is consistent carb. 2. Activity limited until follow. 3. Accu-Cheks a.c. and at bedtime, results to Dr. Celeste. 4. Follow up with Dr. Celeste 2-3 days. 5. Follow up with Dr. Barksdale as recommended. DISCHARGE MEDICATIONS: 1. Celexa 20 mg p.o. daily. 2. Desyrel 50 mg q.h.s. 3. Neurontin 400 mg p.o. daily. 4. Nitroglycerin 0.4 mg p.r.n. 5. Lejunior 7.5 q.6h p.r.n. 6. Levemir 55 units subcu q.h.s. 7. Multivitamins 1 p.o. daily. 8. NovoLog 5 units a.c. t.i.d. 9. Protonix 40 mg with breakfast. 10.Tylenol 650 q.6h p.r.n. 11.Doxycycline 100 mg p.o. b.i.d. for 14 days. Follow up with Infectious Disease as recommended. Further wound care and other recommendations per Infectious Disease and vascular surgery. MMODL / IJN: [id number] /
== END 2019-03-20 13:30 | disposition home or self-care (01) | DRG 854 ==
LOC: EC 17:31 → 4MS4W 20:00
PROVIDERS: ADMIT Hospitalist; ATTEND Hospitalist
PROC: 0JBQ0ZZ Excision of Right Foot Subcutaneous Tissue and Fascia, Open Approach (ICD-10-PCS; principal; 2019-03-19)
DX: A41.9 Sepsis, unspecified organism (principal); Z68.41 Body mass index [BMI] 40.0-44.9, adult; E87.1 Hypo-osmolality and hyponatremia; L03.115 Cellulitis of right lower limb; E11.621 Type 2 diabetes mellitus with foot ulcer; E11.628 Type 2 diabetes mellitus with other skin complications; E11.42 Type 2 diabetes mellitus with diabetic polyneuropathy; D63.8 Anemia in other chronic diseases classified elsewhere; E11.65 Type 2 diabetes mellitus with hyperglycemia; E66.9 Obesity, unspecified; E78.5 Hyperlipidemia, unspecified; F32.9 Major depressive disorder, single episode, unspecified; F41.9 Anxiety disorder, unspecified; G47.30 Sleep apnea, unspecified; I10 Essential (primary) hypertension; L97.519 Non-pressure chronic ulcer of other part of right foot with unspecified severity; Z79.4 Long term (current) use of insulin; Z79.82 Long term (current) use of aspirin; Z79.899 Other long term (current) drug therapy; Z83.3 Family history of diabetes mellitus; Z81.1 Family history of alcohol abuse and dependence; Z89.411 Acquired absence of right great toe; Z86.14 Personal history of Methicillin resistant Staphylococcus aureus infection; L84 Corns and callosities; Z86.718 Personal history of other venous thrombosis and embolism
CPT/HCPCS: 36415; 80048; 80053; 81001; 83036; 83605; 85025; 85610; 85730; 87040; 87070; 87075; 87086; 87205; 93005; 94760; 96361; 96374; 96375; 96376; 99284

== ENCOUNTER → 2019-07-16 | Outpatient (CLI) | payer OTHER | LOC: RADMRIMAIN 14:30 | PROVIDERS: ATTEND Family Medicine | DX: Z53.9 Procedure and treatment not carried out, unspecified reason (principal) ==

== ENCOUNTER → 2019-07-17 | Outpatient (CLI) | payer MEDICARE, OTHER ==
[2019-07-17 14:58] LABS: African American GFR (CKD) >90 (>60 ml/min/1.73 sqM); Blood Urea Nitrogen 14 mg/dL (9-20)
--- NOTE | 2019-07-17 16:11 | CT ---
EXAMINATION TYPE: CT chest w con DATE OF EXAM: 07/17/2019 COMPARISON: 06/04/2019, 06/16/2015 HISTORY: Mass or lump CT DLP: 871 mGycm, Automated exposure control for dose reduction was used. CONTRAST: Performed injected with 100 mL of Isovue 300. TECHNIQUE: Axial images were obtained at 5 mm thick sections. Reconstructed images are reviewed on [employer] computer in the coronal plane. FINDINGS: Portion of the thyroid visualized is normal. Colonic interposition is along the anterior me diastinum. Multiple surgical clips are in the posterior mediastinum. At the level of the naresh there is soft tissue density measuring 4.2 x 5.2 x 6.6 cm in size. This ex tends towards the right atrium measures 6.6 cm in craniocaudal dimension. This has enlarged from the comparison CT chest of 06/16/2015. Previous measurements of 2.3 x 6.1 x 5.3 cm. No suspicious lung nodules or focal infiltrates are present. Postsurgical changes are present in the posterior right lung. There is some thickening with fat density in the posterior right upper lung fie ld. No enlarged mediastinal or hilar adenopathy is evident. The ascending aorta diameter at the level o f the main pulmonary artery is 3.6 cm. The main pulmonary artery diameter at the bifurcation is 3.[address] sections are obtained through the upper abdomen. Abdomen is essentially unremarkable. IMPRESSIONS: 1. 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 2. Enlarging posterior mediastinal mass extending into the naresh.
== END | disposition home or self-care (01) ==
LOC: RADCTMAIN 14:09
PROVIDERS: ATTEND Family Medicine
DX: R22.2 Localized swelling, mass and lump, trunk (principal); Z98.890 Other specified postprocedural states
CPT/HCPCS: 82565; 84520; 71260; 36415; Q9967

== ENCOUNTER 2019-09-19 11:37 | Observation (INO) | payer MEDICARE, OTHER ==
[2019-09-19] MEDS ORDERED: SODIUM CHLORIDE 0.9% 1,000 ML IV STA (12:28)
[2019-09-19] MEDS ORDERED: ONDANSETRON 4 MG/2 ML VIAL IVP STA (12:28)
[2019-09-19] MEDS ORDERED: KETOROLAC 30 MG/ML 1 ML VIAL IVP STA (12:40)
--- NOTE | 2019-09-19 12:45 | ED ---
General Adult HPI - General Chief complaint: Abdominal Pain Stated complaint: Vomiting, High sugar Time Seen by Provider: 09/19/19 12:05 Source: patient, RN notes reviewed, old records reviewed Mode of arrival: ambulatory Limitations: no limitations - History of Present Illness Initial comments: This is a 44-year-old male who presents emergency Department stating that he has had his stomach extended into his thorax because he had part of his esophagus removed earlier in life. Patient states occasionally he'll have some vomiting issues but he has been vomiting since Sunday and he states this is much more vomiting than normal. Patient states he has diffuse abdominal pain but no specific area of tenderness. Patient denies any fever chills. Patient denies any back pain. Patient states she does have diarrhea but he has chronically. It it's no different today than any other day. Patient denies any chest pain palpitations or difficulty breathing. - Related Data Home Medications Medication Instructions Recorded Confirmed Gabapentin [Neurontin] 400 mg PO DAILY 03/14/19 06/27/19 Previous Rx's Medication Instructions Recorded Acetaminophen Tab [Tylenol] 650 mg PO Q6HR PRN tab 03/20/19 INSULIN ASPART (NovoLOG) [NovoLOG 5 unit SQ AC-TID #1 vial 03/20/19 (formulary)] Insulin Detemir (Levemir) [Levemir] 55 unit SQ HS #1 syr 03/20/19 Metoclopramide [Reglan] 10 mg PO Q6H #12 tab 09/19/19 Allergies Allergy/AdvReac Type Severity Reaction Status Date / Time No Known Allergies Allergy Verified 09/19/19 12:05 Review of Systems ROS Statement: Those systems with pertinent positive or pertinent negative responses have been documented in the HPI. ROS Other: All systems not noted in ROS Statement are negative. 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 no cpap used, hx blood clot mike arms. infection in rt second toe osteomyelitis(pt stated toe was amputated). " loose stools"seizure as infant, History of Any Multi-Drug Resistant Organisms: MRSA Date of last positivie culture/infection: 06/17/15 MDRO Source:: Chest abscess Past Surgical History: Tonsillectomy Additional Past Surgical History / Comment(s): bronchial cyst removed, esophagus clipped and removed, stomach stretching, pt reports 35 different procedures on esophogus, amputation rt great toe and toe next to great toe, picc line 4-50-17-since removed, i&d chest wound Past Anesthesia/Blood Transfusion Reactions: No Reported Reaction Past Psychological History: Anxiety, Depression Smoking Status: Never smoker Past Alcohol Use History: Occasional Past Drug Use History: None Reported - Past Family History Father Family Medical History: Diabetes Mellitus Additional Family Medical History / Comment(s): ETOH Mother Family Medical History: No Reported History General Exam - General Exam Comments Initial Comments: GENERAL: Patient is well-developed and well-nourished. Patient is nontoxic and well- hydrated and is in mild distress. ENT: Neck is soft and supple. No significant lymphadenopathy is noted. Oropharynx is clear. Moist mucous membranes. Neck has full range of motion without eliciting any pain. EYES: The sclera were anicteric and conjunctiva were pink and moist. Extraocular movements were intact and pupils were equal round and reactive to light. Eyelids were unremarkable. PULMONARY: Unlabored respirations. Good breath sounds bilaterally. No audible rales rhonchi or wheezing was noted. CARDIOVASCULAR: There is a regular rate and rhythm without any murmurs gallops or rubs. ABDOMEN: Soft and nontender with normal bowel sounds. No palpable organomegaly was noted. There is no palpable pulsatile mass. SKIN: Skin is clear with no lesions or rashes and otherwise unremarkable. NEUROLOGIC: Patient is alert and oriented x3. Cranial nerves II through XII are grossly intact. Motor and sensory are also intact. Normal speech, volume and content. Symmetrical smile. MUSCULOSKELETAL: Normal extremities with adequate strength and full range of motion. No lower extremity swelling or edema. No calf tenderness. LYMPHATICS: No significant lymphadenopathy is noted PSYCHIATRIC: Normal psychiatric evaluation. Limitations: no limitations Course Vital Signs 09/19/19 12:03 Temperature 99.1 F Pulse Rate 87 Respiratory 24 Rate Blood Pressure 185/91 O2 Sat by Pulse 97 Oximetry Medical Decision Making - Medical Decision Making Patient is asking for pain medications multiple times. I spoke with Dr. Abel Randhawa believes he is a drug seeker and that on his last visit he is cocaine positive she did not want the patient to be admitted she wanted me to send the patient home on Reglan. Patient did vomit again in the emergency department. The patient Reglan it did help with his nausea but he still stated that he thought that if he went home he continued vomiting after come back. I spoke with Dr. Cortez he agreed to admit the patient admitted the patient I wrote admitting orders. - Lab Data Result diagrams: 09/19/19 12:35 09/19/19 12:35 Lab Results 09/19/19 09/19/19 09/19/19 Range/Units 12:35 12:35 12:45 WBC 9.0 (3.8-10.6) k/uL RBC 5.09 (4.30-5.90) m/uL Hgb 12.7 L (13.0-17.5) gm/dL Hct 40.6 (39.0-53.0) % MCV 79.8 L (80.0-100.0) fL MCH 24.9 L (25.0-35.0) pg MCHC 31.2 (31.0-37.0) g/dL RDW 15.3 (11.5-15.5) % Plt Count 290 (150-450) k/uL Neutrophils % 84 % Lymphocytes % 10 % Monocytes % 4 % Eosinophils % 0 % Basophils % 1 % Neutrophils # 7.5 (1.3-7.7) k/uL Lymphocytes # 0.9 L (1.0-4.8) k/uL Monocytes # 0.4 (0-1.0) k/uL Eosinophils # 0.0 (0-0.7) k/uL Basophils # 0.1 (0-0.2) k/uL Hypochromasia Slight Sodium 139 (137-145) mmol/L Potassium 5.0 (3.5-5.1) mmol/L Chloride 102 (98-107) mmol/L Carbon Dioxide 25 (22-30) mmol/L Anion Gap 12 mmol/L BUN 22 H (9-20) mg/dL Creatinine 1.03 (0.66-1.25) mg/dL Est GFR (CKD-EPI)AfAm >90 (>60 ml/min/1.73 sqM) Est GFR (CKD-EPI)NonAf 90 (>60 ml/min/1.73 sqM) Glucose 319 H (74-99) mg/dL Calcium 9.6 (8.4-10.2) mg/dL Total Bilirubin 0.7 (0.2-1.3) mg/dL AST 35 (17-59) U/L ALT 20 (4-49) U/L Alkaline Phosphatase 110 (38-126) U/L Total Protein 8.2 (6.3-8.2) g/dL Albumin 4.8 (3.5-5.0) g/dL Amylase 48 (30-110) U/L Lipase 55 (23-300) U/L Urine Color Yellow Urine Appearance Clear (Clear) Urine pH 5.5 (5.0-8.0) Ur Specific [place] 1.033 (1.001-1.035) Urine Protein 2+ H (Negative) Urine Glucose (UA) 4+ H (Negative) Urine Ketones 1+ H (Negative) Urine Blood Small H (Negative) Urine Nitrite Negative (Negative) Urine Bilirubin Negative (Negative) Urine Urobilinogen <2.0 (<2.0) mg/dL Ur Leukocyte Esterase Negative (Negative) Urine RBC 1 (0-5) /hpf Urine WBC 1 (0-5) /hpf Ur Squamous Epith Cells <1 (0-4) /hpf Urine Mucus Rare H (None) /hpf Disposition Clinical Impression: Acute vomiting Disposition: ADMITTED IP TO THIS HOSP Condition: Good Instructions (If sedation given, give patient instructions): Acute Nausea and Vomiting (ED) Prescriptions: Metoclopramide [Reglan] 10 mg PO Q6H #12 tab Is patient prescribed a controlled substance at d/c from ED?: No Referrals: Jeanne Celeste MD [Primary Care Provider] - 1-2 days Time of Disposition: 13:58
[2019-09-19 13:09] LABS: ALT 20 U/L (4-49); AST 35 U/L (17-59); African American GFR (CKD) >90 (>60 ml/min/1.73 sqM); Albumin 4.8 g/dL (3.5-5.0); Alkaline Phosphatase 110 U/L (38-126); Amylase 48 U/L (30-110); Anion Gap 12 mmol/L; Blood Urea Nitrogen 22 mg/dL (9-20); Calcium 9.6 mg/dL (8.4-10.2); Carbon Dioxide 25 mmol/L (22-30); Chloride 102 mmol/L (98-107); Glucose 319 mg/dL (74-99); Non-African American GFR(CKD) 90 (>60 ml/min/1.73 sqM); Sodium 139 mmol/L (137-145); Total Bilirubin 0.7 mg/dL (0.2-1.3); Total Protein 8.2 g/dL (6.3-8.2)
[2019-09-19 13:17] LABS: Appearance,Urine Clear (Clear); Bilirubin,Urine Negative (Negative); Blood,Urine Small (Negative); Color,Urine Yellow; Glucose,Urine (UA) 4+ (Negative); Ketones,Urine 1+ (Negative); Leukocyte Esterase,Urine Negative (Negative); Mucus,Urine Rare /hpf; Nitrite,Urine Negative (Negative); PH, Urine 5.5 (5.0-8.0); Protein,Urine 2+ (Negative); RBC,Urine 1 /hpf (0-5); Specific Gravity,Urine 1.033 (1.001-1.035); Squamous Epithelial Cell,Urine <1 /hpf (0-4); Urobilinogen,Urine <2.0 mg/dL (<2.0); WBC,Urine 1 /hpf (0-5)
[2019-09-19 13:27] LABS: Basophils # (A) 0.1 k/uL (0-0.2); Basophils % (A) 1 %; Eosinophils % (A) 0 %; HCT 40.6 % (39.0-53.0); HGB 12.7 gm/dL (13.0-17.5); Hypochromasia Slight; Lymphocytes # (A) 0.9 k/uL (1.0-4.8); Lymphocytes % (A) 10 %; MCH 24.9 pg (25.0-35.0); MCHC 31.2 g/dL (31.0-37.0); MCV 79.8 fL (80.0-100.0); Mean Platelet Volume 7.7; Monocytes # (A) 0.4 k/uL (0-1.0); Monocytes % (A) 4 %; Neutrophils # (A) 7.5 k/uL (1.3-7.7); Neutrophils % (A) 84 %; Platelet Count 290 k/uL (150-450); RBC 5.09 m/uL (4.30-5.90); RDW 15.3 % (11.5-15.5)
[2019-09-19] MEDS ORDERED: HYDROmorphone 1 MG/ML 1 ML SYRINGE IVP STA (14:18)
[2019-09-19] MEDS ORDERED: METOCLOPRAMIDE 5 MG/ML 2 ML VIAL IVP STA (14:18)
[2019-09-19] MEDS ORDERED: SODIUM CHLORIDE 0.9% 1,000 ML IV ONE (15:05)
[2019-09-19] MEDS: METOCLOPRAMIDE 5 MG/ML 2 ML VIAL IVP SCH (18:26)
[2019-09-19] MEDS ORDERED: tiZANidine 4 MG TAB PO PRN (18:40)
[2019-09-19] MEDS ORDERED: GABAPENTIN 400 MG CAP PO PRN (18:40)
[2019-09-19] MEDS ORDERED: ONDANSETRON 4 MG TAB PO PRN (18:40)
[2019-09-19] MEDS ORDERED: HYDROcodone/APAP 5-325MG 1 EACH TAB PO PRN (19:01)
[2019-09-19] MEDS ORDERED: KETOROLAC 30 MG/ML 1 ML VIAL IVP PRN (19:03)
--- NOTE | 2019-09-19 19:12 | P.HPIM ---
History of Present Illness 44-year-old male came in to ER with comments of nausea vomiting. Patient has some her symptoms in the past since his major surgery with his stomach was extending to thorax as most of his esophagus was removed. A she denied any feve r chills patient denied any flulike symptoms. Patient was complaining of diffuse abdominal tenderness from epigastric. Patient does have some chronic diarrhea. Denies any shortness of breath. Review of Systems REVIEW OF SYSTEMS: CONSTITUTIONAL: No fever, no malaise, no fatigue. HEENT: No recent visual problems or hearing problems. Denied any sore throat. CARDIOVASCULAR: No chest pain, orthopnea, PND, no palpitations, no syncope. PULMONARY: No shortness of breath, no cough, no hemoptysis. GASTROINTESTINAL: As mentioned in uncontrolled history. NEUROLOGICAL: No headaches, no weakness, no numbness. HEMATOLOGICAL: Denies any bleeding or petechiae. GENITOURINARY: Denies any burning micturition, frequency, or urgency. MUSCULOSKELETAL/RHEUMATOLOGICAL: Denies any joint pain, swelling, or any muscle pain. ENDOCRINE: Denies any polyuria or polydipsia. The rest of the 14-point review of systems is negative. Past Medical History Past Medical History: Diabetes Mellitus, Deep Vein Thrombosis (DVT), Hyperlipidemia, Hypertension, Seizure Disorder, Sleep Apnea/CPAP/BIPAP Additional Past Medical History / Comment(s): IDDM type II, neuropathy bilateral knees thru feet, bilateral foot ulcers/toe wounds, osteomylitis R 2nd toe with surgery, past L chest cellulitis with surgery, esophageal wound with multiple surgeries/past peg tube, MANJULA-does not tolerate Cpap, DVT L arm, seizures as an i nfant only, chronic diarrhea. History of Any Multi-Drug Resistant Organisms: MRSA Date of last positivie culture/infection: 06/17/15 MDRO Source:: Chest abscess Past Surgical History: Tonsillectomy Additional Past Surgical History / Comment(s): 2011 bronchial cyst removed and had hole poked into esophagus, multiple esophageal procedures to repair hole and eventual esophagectomy/clipping with stomach stretched to attach, peg tubes, R great toe/2nd and 5th toe/partial foot amputated, L 5th toe amputation/partial foot amp, I&D chest wound, PICCS in and out. Past Anesthesia/Blood Transfusion Reactions: No Reported Reaction Smoking Status: Never smoker - Past Family History Father Family Medical History: Diabetes Mellitus Additional Family Medical History / Comment(s): ETOH. Father at the age of 56yrs. Mother Family Medical History: No Reported History Additional Family Medical History / Comment(s): Mother is healthy Medications and Allergies Home Medications Medication Instructions Recorded Confirmed Type Gabapentin [Neurontin] 400 mg PO DAILY PRN 03/14/19 09/19/19 History Insulin Glargine,Hum.rec.anlog 45 unit SQ HS 09/19/19 09/19/19 History [Basaglar Kwikpen U-100] Insulin Lispro [Admelog] 25 unit SQ AC-TID 09/19/19 09/19/19 History Metoclopramide [Reglan] 10 mg PO Q6H #12 tab 09/19/19 Rx Ondansetron HCl [Zofran] 8 mg PO Q8H PRN 09/19/19 09/19/19 History tiZANidine [Zanaflex] 4 mg PO BID PRN 09/19/19 09/19/19 History traZODone HCL 100 mg PO HS 09/19/19 09/19/19 History Allergies Allergy/AdvReac Type Severity Reaction Status Date / Time No Known Allergies Allergy Verified 09/19/19 16:16 Physical Exam Vitals: Vital Signs Temp Pulse Resp BP Pulse Ox 09/19/19 16:00 16 09/19/19 15:57 77 19 156/87 95 09/19/19 12:03 99.1 F 87 24 185/91 97 Intake and Output 09/19/19 09/19/19 09/19/19 06:59 14:59 22:59 Other: Voiding Method Toilet Weight 155.31 kg 155.31 kg PHYSICAL EXAMINATION: GENERAL: The patient is alert and oriented x3, not in any acute distress. Morbid obesity HEENT: Pupils are round and equally reacting to light. EOMI. No scleral icterus. No conjunctival pallor. Normocephalic, atraumatic. No pharyngeal erythema. No thyromegaly. CARDIOVASCULAR: S1 and S2 present. No murmurs, rubs, or gallops. PULMONARY: Chest is clear to auscultation, no wheezing or crackles. ABDOMEN: Soft, nontender, nondistended, normoactive bowel sounds. No palpable organomegaly. MUSCULOSKELETAL: No joint swelling or deformity. EXTREMITIES: No cyanosis, clubbing, or pedal edema. NEUROLOGICAL: Gross neurological examination did not reveal any focal deficits. SKIN: No rashes. Results CBC & Chem 7: 09/19/19 12:35 09/19/19 12:35 Labs: Abnormal Lab Results - Last 24 Hours (Table) 09/19/19 09/19/19 09/19/19 Range/Units 12:35 12:35 12:45 Hgb 12.7 L (13.0-17.5) gm/dL MCV 79.8 L (80.0-100.0) fL MCH 24.9 L (25.0-35.0) pg Lymphocytes # 0.9 L (1.0-4.8) k/uL BUN 22 H (9-20) mg/dL Glucose 319 H (74-99) mg/dL Urine Protein 2+ H (Negative) Urine Glucose (UA) 4+ H (Negative) Urine Ketones 1+ H (Negative) Urine Blood Small H (Negative) Urine Mucus Rare H (None) /hpf Thrombosis Risk Factor Assmnt - Choose All That Apply Any of the Below Risk Factors Present?: Yes Each Factor Represents 1 point: Age 41-60 years, Obesity (BMI >25) Other Risk Factors: Yes Each Risk Factor Represents 3 Points: History of DVT/PE Other congenital or acquired thrombophilia - If yes, enter type in comment: No Thrombosis Risk Factor Assessment Total Risk Factor Score: 5 Thrombosis Risk Factor Assessment Level: High Risk Assessment and Plan Plan: -Nausea vomiting secondary to esophagitis and gastritis: Patient was started on protonic avoid nonsteroidal anti-inflammatory medications patient is asking something for pain which for which we'll use [place]. If his symptoms doesn't improve we'll consult gastroenterology. -Type 2 diabetes mellitus elevated blood sugars: Patient will be started on his home regimen if patient is not eating well will have to cut down the long-acting insulin to two thirds and can use pre-meal insulin with each meals and sliding scale with each meal. -History of of DVT in the past next and-hyperlipidemia -Hypertension -obesity and sleep apnea -Seizure disorder For above-mentioned chronic medical problems patient will be resumed and continued on appropriate home medications
[2019-09-19] MEDS: HYDROcodone/APAP 5-325MG 1 EACH TAB PO PRN (19:16)
[2019-09-19 20:39] LABS: Glucose,Whole Blood 189 mg/dL (75-99)
[2019-09-19] MEDS: PANTOPRAZOLE 40 MG/10 ML VIAL IVP SCH (20:40)
[2019-09-19] MEDS ORDERED: traZODone HCL 100 MG TAB PO SCH (21:00)
[2019-09-19] MEDS ORDERED: INSULIN DETEMIR (LEVEMIR) 100 UNIT/ML SYR SQ SCH (21:00)
[2019-09-19 23:00] VITALS: RESP 18
[2019-09-20] MEDS: METOCLOPRAMIDE 5 MG/ML 2 ML VIAL IVP SCH ×3 (00:54→11:05)
[2019-09-20] MEDS: HYDROcodone/APAP 5-325MG 1 EACH TAB PO PRN ×2 (00:54→06:04)
[2019-09-20 05:44] VITALS: BP 147/80; PULSE 64; TEMP 98.2
[2019-09-20 07:22] LABS: Glucose,Whole Blood 133 mg/dL (75-99)
[2019-09-20] MEDS: INSULIN ASPART (NovoLOG) 100 UNIT/ML VIAL SQ SCH ×2 (08:22→12:37)
[2019-09-20] MEDS: PANTOPRAZOLE 40 MG/10 ML VIAL IVP SCH (08:29)
[2019-09-20 11:34] LABS: Glucose,Whole Blood 191 mg/dL (75-99)
--- NOTE | 2019-09-21 08:54 | DS ---
DISCHARGE SUMMARY DATE OF SERVICE: 09/20/2019. FINAL DIAGNOSES: 1. Intractable nausea and vomiting, possible acute gastritis. 2. History of recurrent vomiting. 3. History of diabetes type 2. 4. History of deep vein thrombosis. 5. Hypertension. 6. Obesity. 7. Sleep apnea. 8. History of seizure disorder. DISCHARGE DISPOSITION: The patient will be discharged in stable condition with guarded prognosis. HISTORY OF PRESENT ILLNESS: This 44-year-old gentleman admitted with significant vomiting, nausea and unable to keep anything down, treated symptomatically. Patient improved significantly. Labs are noted. On exam, vitals are stable. Cardiovascular system: S1, S2. Abdomen soft. Nervous system: No focal deficits. The patient is keen on going home. DISCHARGE ADVICE AND MEDICATIONS: 1. Discharge diet is cardiac diet. 2. Activity limited until followup. 3. Follow up with Dr. Celeste in 1-2 days. DISCHARGE MEDICATIONS: 1. Insulin lispro 25 units a.c. t.i.d. 2. Lantus 45 units subcu q.h.s. 3. Neurontin 400 mg daily p.r.n. 4. Trazodone 100 mg q.h.s. 5. Zanaflex 4 mg p.o. b.i.d. p.r.n. 6. Protonix 40 mg p.o. daily. 7. Reglan 10 mg q.6h p.r.n. Please note discontinue Zofran. Inform staff. MARIELOS / ANA ROSA: [id number] /
== END 2019-09-20 12:59 | disposition home or self-care (01) ==
LOC: EC 11:37 → 6NMEDSUR 15:05
PROVIDERS: ADMIT Internal Medicine; ATTEND Internal Medicine
DX: R10.9 Unspecified abdominal pain (principal); R11.2 Nausea with vomiting, unspecified; K52.9 Noninfective gastroenteritis and colitis, unspecified; E11.65 Type 2 diabetes mellitus with hyperglycemia; E11.42 Type 2 diabetes mellitus with diabetic polyneuropathy; Z79.4 Long term (current) use of insulin; I10 Essential (primary) hypertension; F41.9 Anxiety disorder, unspecified; F32.9 Major depressive disorder, single episode, unspecified; G47.33 Obstructive sleep apnea (adult) (pediatric); Z89.432 Acquired absence of left foot; Z89.431 Acquired absence of right foot; Z90.49 Acquired absence of other specified parts of digestive tract; E66.01 Morbid (severe) obesity due to excess calories; Z68.42 Body mass index [BMI] 45.0-49.9, adult; Z86.14 Personal history of Methicillin resistant Staphylococcus aureus infection; Z86.718 Personal history of other venous thrombosis and embolism; Z83.3 Family history of diabetes mellitus; Z81.1 Family history of alcohol abuse and dependence; Z79.899 Other long term (current) drug therapy; E78.5 Hyperlipidemia, unspecified
CPT/HCPCS: 96376 ×2; 96375 ×2; 96361; 96374; 99285; 36415; 80053; 82150; 83690; 85025; 81001; G0378 ×2; J2765 ×2; J2405; J1885; J1170; C9113 ×2

== ENCOUNTER 2019-09-25 10:19 | Observation (INO) | payer MEDICARE ==
--- NOTE | 2019-09-25 11:20 | XR ---
EXAMINATION TYPE: XR chest 2V DATE OF EXAM: 09/25/2019 COMPARISON: 02/12/2017 HISTORY: Chest pain TECHNIQUE: Frontal and lateral views of the chest are obtained. FINDINGS: Posterior mediastinal mass is again seen appearing enlarged from the prior x-ray of 2017 m easuring up to 6.4 cm in craniocaudal dimension and enlarging right hilum. Chronic right pleural thic kening is also seen/post surgical change and subpleural deposition of fat in comparison the prior CT of 07/17/2019. Rib deformities seen on the prior CT are not well appreciated on x-ray. Surgical clips of the superior mediastinum are noted. Strand-like left basilar atelectasis. Cardiomediastinal silho uette is within normal limits. IMPRESSION: 1. Continued enlargement of the known posterior mediastinal mass enlarging the right hilum. 2. Chronic right pleural thickening/postsurgical change and subpleural deposition of fat. 3. Subsegmental left basilar atelectasis.
[2019-09-25 11:26] LABS: Basophils % (A) 1 %; Eosinophils # (A) 0.1 k/uL (0-0.7); Eosinophils % (A) 1 %; HCT 38.2 % (39.0-53.0); HGB 12.1 gm/dL (13.0-17.5); Lymphocytes # (A) 0.8 k/uL (1.0-4.8); Lymphocytes % (A) 15 %; MCH 24.8 pg (25.0-35.0); MCHC 31.6 g/dL (31.0-37.0); MCV 78.6 fL (80.0-100.0); Mean Platelet Volume 7.8; Monocytes # (A) 0.3 k/uL (0-1.0); Monocytes % (A) 5 %; Neutrophils # (A) 4.3 k/uL (1.3-7.7); Neutrophils % (A) 77 %; Platelet Count 228 k/uL (150-450); RBC 4.86 m/uL (4.30-5.90); RDW 14.7 % (11.5-15.5); WBC 5.7 k/uL (3.8-10.6)
[2019-09-25] MEDS ORDERED: NITROGLYCERIN SL TABS 0.4 MG TAB SUBLINGUAL STA (11:26)
[2019-09-25] MEDS ORDERED: ONDANSETRON 4 MG/2 ML VIAL IVP STA (11:26)
[2019-09-25 11:29] LABS: ALT 14 U/L (4-49); AST 22 U/L (17-59); African American GFR (CKD) >90 (>60 ml/min/1.73 sqM); Albumin 4.2 g/dL (3.5-5.0); Alkaline Phosphatase 87 U/L (38-126); Anion Gap 9 mmol/L; Blood Urea Nitrogen 10 mg/dL (9-20); Calcium 9.3 mg/dL (8.4-10.2); Carbon Dioxide 27 mmol/L (22-30); Chloride 101 mmol/L (98-107); Glucose 255 mg/dL (74-99); Magnesium 1.8 mg/dL (1.6-2.3); Non-African American GFR(CKD) >90 (>60 ml/min/1.73 sqM); Potassium 4.9 mmol/L (3.5-5.1); Sodium 137 mmol/L (137-145); Total Bilirubin 0.5 mg/dL (0.2-1.3); Total Protein 7.2 g/dL (6.3-8.2)
--- NOTE | 2019-09-25 11:31 | ED ---
Chest Pain HPI - General Chief Complaint: Chest Pain Stated Complaint: Chest pain Time Seen by Provider: 09/25/19 10:35 Source: patient Mode of arrival: wheelchair Limitations: no limitations - History of Present Illness Initial Comments: Dictation was produced using Aut[employer] dictation software. please excuse any grammatical, word or spelling errors. Chief Complaint: 44-year-old male with past medical history of diabetes, DVTs and hypertension presents with chest pain. History of Present Illness: 44-year-old male presents today with chest pain. Patient states that the pain is pressure-like to the anterior chest. Reports that feels like an elephant is sitting on his chest. He states that her pain radiates to his left upper extremity. No associated diaphoresis. He does also complain of nausea. Patient reports that he was recently admitted to the hospital for gastritis type symptoms. Patient states he feels slightly nause ous. The ROS documented in this emergency department record has been reviewed and confirmed by me. Those systems with pertinent positive or negative responses have been documented in the HPI. All other systems are other negative and/or noncontributory. PHYSICAL EXAM: General Impression: Alert and oriented x3, not in acute distress, sitting comfortably and watching TV HEENT: Normocephalic atraumatic, extra-ocular movements intact, pupils equal and reactive to light bilaterally, mucous membranes moist. Cardiovascular: Heart regular rate and rhythm, S1&S2 audible, no murmurs, rubs or gallops Chest: Lungs clear to auscultation bilaterally, no rhonchi, no wheeze, no rales Abdomen: Bowel sounds present, abdomen soft, non-tender, non-distended, no organomegaly Musculoskeletal: Pulses present and equal in all extremities, no peripheral edema Motor: no focal deficits noted Neurological: CN II-XII grossly intact, no focal motor or sensory deficits noted Skin: Intact with no visualized rashes Psych: Normal affect and mood ED course: 44-year-old male presents with chief complaint of chest pain. Patient is a diabetic. He does have atypical chest pain typical features. Vital signs upon arrival shows respiratory rate of 26, rest of vital signs within acceptable limits. Patient not showing any respiratory distress at bedside. Repeat respiratory rate is normal. Chart review was performed. It appears that patient has history of complex thoracic surgical disease. Patient had transthoracic esophagectomy addy Brian.. Patient was evaluated by cardiothoracic surgeon in July and was provided with reassurance. Laboratory evaluation obtained. Hemoglobin stable at 12.1. No leukocytosis. Coag panel is unremarkable. Metabolic panel is unremarkable. First cardiac enzyme is negative. Patient given aspirin. He is also given nitroglycerin with no significant improvement of chest pain. This point patient's local presentation consistent with atypical chest pain with typical features. Patient will be admitted for serial troponins. EKG interpretation: Ventricular rate 77, normal sinus rhythm,. Interval 188, QRS 439. No VT prolongation, no QTC prolongation, no ST. EKG shows T-wave inversion in lead 3. This appears to be new when compared to EKG from the 2018. - Related Data Home Medications Medication Instructions Recorded Confirmed Gabapentin [Neurontin] 400 mg PO DAILY PRN 03/14/19 09/25/19 Insulin Glargine,Hum.rec.anlog 45 unit SQ HS 09/19/19 09/25/19 [Basaglar Kwikpen U-100] Insulin Lispro [Admelog] 25 unit SQ AC-TID 09/19/19 09/25/19 tiZANidine [Zanaflex] 4 mg PO BID PRN 09/19/19 09/25/19 traZODone HCL 100 mg PO HS 09/19/19 09/25/19 Previous Rx's Medication Instructions Recorded Metoclopramide [Reglan] 10 mg PO Q6H PRN #20 tab 09/20/19 Pantoprazole Sodium [Protonix] 40 mg PO DAILY #30 tablet. 09/20/19 Allergies Allergy/AdvReac Type Severity Reaction Status Date / Time No Known Allergies Allergy Verified 09/25/19 11:59 Review of Systems ROS Statement: Those systems with pertinent positive or pertinent negative responses have been documented in the HPI. ROS Other: All systems not noted in ROS Statement are negative. 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 History of Any Multi-Drug Resistant Organisms: MRSA Date of last positivie culture/infection: 06/17/15 MDRO Source:: Chest abscess Past Surgical History: Tonsillectomy Additional Past Surgical History / Comment(s): 2011 bronchial cyst removed and had hole poked into esophagus, multiple esophageal procedures to repair hole and eventual esophagectomy/clipping with stomach stretched to attach, peg tubes, R great toe/2nd and 5th toe/partial foot amputated, L 5th toe amputation/partial foot amp, I&D chest wound, PICCS in and out. Past Anesthesia/Blood Transfusion Reactions: No Reported Reaction Past Psychological History: Anxiety, Depression Smoking Status: Never smoker Past Alcohol Use History: Occasional Past Drug Use History: Cocaine, Marijuana - Past Family History Father Family Medical History: Diabetes Mellitus Additional Family Medical History / Comment(s): ETOH. Father at the age of 56yrs. Mother Family Medical History: No Reported History Additional Family Medical History / Comment(s): Mother is healthy General Exam Limitations: no limitations Course Vital Signs 09/25/19 09/25/19 09/25/19 10:20 10:24 10:50 Temperature 98.5 F 98.9 F Pulse Rate 88 81 88 Respiratory 19 26 H 26 H Rate Blood Pressure 182/100 172/121 129/105 O2 Sat by Pulse 96 95 98 Oximetry 09/25/19 09/25/19 09/25/19 11:33 11:37 11:40 Temperature Pulse Rate 84 72 79 Respiratory 18 18 16 Rate Blood Pressure 147/86 145/86 126/80 O2 Sat by Pulse 96 95 93 L Oximetry Disposition Clinical Impression: Chest pain Disposition: ADMITTED IP TO THIS HOSP Condition: Fair Referrals: Jeanne Celeste MD [Primary Care Provider] - 1-2 days Decision Time: 12:59
[2019-09-25 12:23] LABS: INR 0.9 (<1.2); Prothrombin Time 9.9 sec (9.0-12.0)
[2019-09-25 12:28] LABS: Partial Thromboplastin Time 21.8 sec (22.0-30.0)
[2019-09-25] MEDS ORDERED: NITROGLYCERIN SL TABS 0.4 MG TAB SUBLINGUAL PRN (12:56)
[2019-09-25] MEDS ORDERED: hydrALAZINE HCL 20 MG/ML 1 ML VIAL IVP STA (14:00)
[2019-09-25] MEDS: FAMOTIDINE 20 MG/2 ML VIAL IV SCH ×2 (14:16→21:34)
[2019-09-25] MEDS ORDERED: METOCLOPRAMIDE 5 MG/ML 2 ML VIAL IVP PRN (15:42)
[2019-09-25] MEDS: MORPHINE SULFATE 4 MG/ML SYRINGE IVP PRN ×2 (15:47→21:34)
[2019-09-25 16:08] VITALS: RESP 18
[2019-09-25 17:03] LABS: Glucose,Whole Blood 207 mg/dL (75-99)
[2019-09-25] MEDS: INSULIN ASPART (NovoLOG) 100 UNIT/ML VIAL SQ SCH ×2 (17:11→21:34)
[2019-09-25] MEDS ORDERED: METOCLOPRAMIDE 5 MG/ML 2 ML VIAL IVP SCH (18:00)
[2019-09-25 20:13] LABS: Glucose,Whole Blood 217 mg/dL (75-99)
[2019-09-25] MEDS: ONDANSETRON 4 MG/2 ML VIAL IVP PRN (21:34)
[2019-09-25] MEDS ORDERED: GABAPENTIN 400 MG CAP PO PRN (23:12)
[2019-09-25] MEDS ORDERED: INSULIN DETEMIR (LEVEMIR) 100 UNIT/ML SYR SQ SCH (23:15)
[2019-09-25] MEDS ORDERED: tiZANidine 4 MG TAB PO PRN (23:34)
[2019-09-25] MEDS ORDERED: traZODone HCL 100 MG TAB PO SCH (23:45)
--- NOTE | 2019-09-25 23:45 | P.HPIM ---
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 Patient says that he felt pressure-like sensation in the upper abdomen and lower chest pain. Also complains of left shoulder pain on and off. Patient does have nausea. No acute source of vomiting. Denied shortness of breath. Patient felt similar pain previously. Patient was admitted to the hospital with nausea and vomiting and was discharged on 01/19/2019, improvement with symptomatic management. Denied any fever or chills. No cough or sputum production. EKG showed normal sinus rhythm. Chest x-ray showed continued enlargement of the known posterior mediastinal mass enlarging the right hilum. Chronic right pleural thickening/postsurgical change and subpleural deportation of fat. Subsegmental left basilar atelectasis. 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 Past Medical History Past Medical History: Diabetes Mellitus, Deep Vein Thrombosis (DVT), Hyperlipidemia, Hypertension, Seizure Disorder, Sleep Apnea/CPAP/BIPAP Additional Past Medical History / Comment(s): Pt recently admitted to [facility] on 09/19/19 with intractable nausea and vomiting thought possible acute gastritis. 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 History of Any Multi-Drug Resistant Organisms: MRSA Date of last positivie culture/infection: 06/17/15 MDRO Source:: Chest abscess Past Surgical History: Tonsillectomy Additional Past Surgical History / Comment(s): 2011 bronchial cyst removed and had hole poked into esophagus, multiple esophageal procedures to repair hole and eventual esophagectomy/clipping with stomach stretched to attach, peg tubes, R great toe/2nd and 5th toe/partial foot amputated, L 5th toe amputation/partial foot amp, I&D chest wound, PICCS in and out. Past Anesthesia/Blood Transfusion Reactions: No Reported Reaction Smoking Status: Never smoker - Past Family History Father Family Medical History: Diabetes Mellitus Additional Family Medical History / Comment(s): ETOH. Father at the age of 56yrs. Mother Family Medical History: No Reported History Additional Family Medical History / Comment(s): Mother is healthy Medications and Allergies Home Medications Medication Instructions Recorded Confirmed Type Gabapentin [Neurontin] 400 mg PO DAILY PRN 03/14/19 09/25/19 History Insulin Glargine,Hum.rec.anlog 45 unit SQ HS 09/19/19 09/25/19 History [Basaglar Kwikpen U-100] Insulin Lispro [Admelog] 25 unit SQ AC-TID 09/19/19 09/25/19 History tiZANidine [Zanaflex] 4 mg PO BID PRN 09/19/19 09/25/19 History traZODone HCL 100 mg PO HS 09/19/19 09/25/19 History Metoclopramide [Reglan] 10 mg PO Q6H PRN #20 tab 09/20/19 09/25/19 Rx Pantoprazole Sodium [Protonix] 40 mg PO DAILY #30 tablet. 09/20/19 09/25/19 Rx Allergies Allergy/AdvReac Type Severity Reaction Status Date / Time No Known Allergies Allergy Verified 09/25/19 11:59 Physical Exam Vitals: Vital Signs Temp Pulse Resp BP Pulse Ox 09/25/19 13:23 98.2 F 69 16 149/83 96 09/25/19 11:40 79 16 126/80 93 L 09/25/19 11:37 72 18 145/86 95 09/25/19 11:33 84 18 147/86 96 09/25/19 10:50 88 26 H 129/105 98 09/25/19 10:24 98.9 F 81 26 H 172/121 95 09/25/19 10:20 98.5 F 88 19 182/100 96 Intake and Output 09/25/19 09/25/19 09/25/19 06:59 14:59 22:59 Other: Voiding Method Toilet Weight 154.221 kg PHYSICAL EXAMINATION: Patient is lying in the bed comfortably, no acute distress, awake alert and oriented.. HEENT: Normocephalic. Neck is supple. Pupils reactive. Nostrils clear. Oral cavity is moist. Ears reveal no drainage. Neck reveals no JVD, carotid bruits, or thyromegaly. CHEST EXAMINATION: Trachea is central. Symmetrical expansion. Bibasilar diminished air entry. Lung rios clear to auscultation and percussion. CARDIAC: Normal S1, S2 with no gallops. No murmurs ABDOMEN: Soft. Nontender. Bowel sounds normal. No organomegaly. No abdominal bruits. Extremities: reveal no edema. No clubbing or cyanosis Neurologically awake, alert, oriented x3 with well-coordinated movements. No focal deficits noted Skin: No rash or skin lesions. Psychiatric: Coperative. Nonsuicidal Musculoskeletal: No joint swelling or deformity. Normal range of motion. Results CBC & Chem 7: 09/25/19 10:56 09/25/19 10:56 Labs: Abnormal Lab Results - Last 24 Hours (Table) 09/25/19 09/25/19 09/25/19 Range/Units 10:56 10:56 10:56 Hgb 12.1 L (13.0-17.5) gm/dL Hct 38.2 L (39.0-53.0) % MCV 78.6 L (80.0-100.0) fL MCH 24.8 L (25.0-35.0) pg Lymphocytes # 0.8 L (1.0-4.8) k/uL APTT 21.8 L (22.0-30.0) sec Glucose 255 H (74-99) mg/dL Thrombosis Risk Factor Assmnt - DVT/VTE Prophylaxis DVT/VTE Prophylaxis: Pharmacologic Prophylaxis ordered - Choose All That Apply Any of the Below Risk Factors Present?: Yes Each Factor Represents 1 point: Age 41-60 years, Obesity (BMI >25) Other Risk Factors: No Other congenital or acquired thrombophilia - If yes, enter type in comment: No Thrombosis Risk Factor Assessment Total Risk Factor Score: 2 Thrombosis Risk Factor Assessment Level: Low Risk Assessment and Plan Assessment: Upper abdominal pain and chest pain with possible gastritis and related to his recurrent abdominal pain from previous surgery. Rule out ACS. Hyperglycemia with uncontrolled diabetes type 2 insulin-dependent Hypertension Hyperlipidemia History of seizure disorder Obstructive sleep apnea Diabetic peripheral neuropathy Obstructive sleep apnea. Patient cannot tolerate CPAP History of left arm DVT Chronic diarrhea currently stable DVT prophylaxis Morbid obesity with BMI 44.9 Plan: Patient will be continued on gentle hydration and symptomatic management for nausea and abdominal pain. Patient says that his pain is similar to his previous episodes. Continue with Pepcid IV and Reglan. Patient did have improvement in symptoms with IV Dilaudid. Continue with insulin dosing and follow closely. Further recommendations based on the clinical course. Time with Patient: Greater than 30
[2019-09-26 02:37] LABS: Cholesterol 192 mg/dL (<200); HDL Cholesterol 27 mg/dL (40-60); LDL Cholesterol,Calculated 134 mg/dL (0-99); Triglycerides 157 mg/dL (<150)
[2019-09-26] MEDS: MORPHINE SULFATE 4 MG/ML SYRINGE IVP PRN ×2 (04:14→10:16)
[2019-09-26 06:47] LABS: Glucose,Whole Blood 237 mg/dL (75-99)
[2019-09-26 07:24] VITALS: TEMP 97.7
--- NOTE | 2019-09-26 08:10 | P.CRDCN ---
History of Present Illness History of present illness: HISTORY OF PRESENTING ILLNESS This is a pleasant 44-year-old male past medical history significant for hypertension, dyslipidemia, diabetes mellitus, obstructive sleep apnea and an extensive surgical history related to bronchial cyst removal causing esophagectomy. 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 He states in the recent past he stopped taking his Lipitor and losartan because he felt to see him to minimize medications. We have been asked to see in consultation for chest pain. He states for the previous 2 weeks he has been struggling with intermittent nausea and dry heaving. Sunday evening when he laid down to sleep he felt a heavy pressure sensation across the chest. There was no radiation to the back, arm, neck or jaw. He denies associated shortness of breath, dizziness, palpitations or diaphoresis. He struggled to the night to sleep. His pain was relieved by taking a warm shower but would resume associated shower. On arrival to the emergency department his blood pressure was 182/101 72/121. He received IV hydralazine. Repeat blood pressure this morning 130/83. DIAGNOSTICS EKG reveals sinus mechanism with no acute ST or T-wave abnormalities. Chest xray enlargement of the known posterior mediastinal mass, chronic right pleural thickening and subsegmental left basilar atelectasis. Laboratory reviewed, WBC 5.7, hemoglobin 12.1, platelets 228, sodium 137, potassium 4.9, creatinine 0.85, cardiac enzymes negative 3, magnesium 1.8, LDL 134, HDL 27. Current cardiac medications include he takes no daily cardiac medications. REVIEW OF SYSTEMS At the time of my exam: CONSTITUTIONAL: Denies fever or chills. CARDIOVASCULAR: Denies chest pain, shortness of breath, orthopnea, PND or palpitations. RESPIRATORY: Denies cough. GASTROINTESTINAL: Complains of nausea. Denies abdominal pain, diarrhea, constipation or vomiting. MUSCULOSKELETAL: Denies myalgias. NEUROLOGIC: Denies numbness, tingling or weakness. ENDOCRINE: Denies fatigue, weight change, polydipsia or polyurina. GENITOURINARY: Denies burning, hematuria or urgency with micturation. HEMATOLOGIC: Denies history of anemia or bleeding. PHYSICAL EXAMINATION Blood pressure 130/83 heart rate 68 afebrile and maintaining oxygen saturation on room air. CONSTITUTIONAL: No apparent distress. Obese. HEENT: Head is normocephalic. Pupils are equal, round. Sclerae anicteric. Mucous membranes of the mouth are moist. No JVD. No carotid bruit. CHEST EXAMINATION: Lungs are clear to auscultation. No chest wall tenderness is noted on palpation or with deep breathing. Mass noted on left side of the mid line just below the clavicle, soft non-tender. HEART EXAMINATION: Regular rate and rhythm. S1, S2 heard. No murmurs, gallops or rub. ABDOMEN: Soft, nontender. Positive bowel sounds. EXTREMITIES: 2+ peripheral pulses, no lower extremity edema and no calf tenderness. Left great toe amputation. NEUROLOGIC EXAMINATION: Patient is awake, alert and oriented x3. ASSESSMENT Chest pain, atypical for angina. An acute event has been ruled out. Persistent nausea Diabetes mellitus Hypertension Dyslipidemia Obstructive sleep apnea Esophagectomy PLAN Initiate lisinopril and atorvastatin. He is agreeable to take these medications after lengthy discussion and rationale explained in great detail. Obtain 2D echocardiogram and doppler study to assess cardiac structure and function. An acute coronary event has been ruled out. Symptoms are atypical to be of cardiac etiology and likely related to underlying GI related illness. Given his extensive risk factors recommend outpatient stress testing. Obtain copy of recent heart cath performed 2 years ago per the patient for review. Thank you kindly for this consultation. Nurse Practitioner note has been reviewed, I agree with a documented findings and plan of care. Patient was seen and examined. Past Medical History Past Medical History: Diabetes Mellitus, Deep Vein Thrombosis (DVT), Hyperlipidemia, Hypertension, Seizure Disorder, Sleep Apnea/CPAP/BIPAP Additional Past Medical History / Comment(s): Pt recently admitted to [facility] on 09/19/19 with intractable nausea and vomiting thought possible acute gastritis. 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 History of Any Multi-Drug Resistant Organisms: MRSA Date of last positivie culture/infection: 06/17/15 MDRO Source:: Chest abscess Past Surgical History: Tonsillectomy Additional Past Surgical History / Comment(s): 2011 bronchial cyst removed and had hole poked into esophagus, multiple esophageal procedures to repair hole and eventual esophagectomy/clipping with stomach stretched to attach, peg tubes, R great toe/2nd and 5th toe/partial foot amputated, L 5th toe amputation/partial foot amp, I&D chest wound, PICCS in and out. Past Anesthesia/Blood Transfusion Reactions: No Reported Reaction Smoking Status: Never smoker - Past Family History Father Family Medical History: Diabetes Mellitus Additional Family Medical History / Comment(s): ETOH. Father at the age of 56yrs. Mother Family Medical History: No Reported History Additional Family Medical History / Comment(s): Mother is healthy Medications and Allergies Home Medications Medication Instructions Recorded Confirmed Type Gabapentin [Neurontin] 400 mg PO DAILY PRN 03/14/19 09/25/19 History Insulin Glargine,Hum.rec.anlog 45 unit SQ HS 09/19/19 09/25/19 History [Basaglar Kwikpen U-100] Insulin Lispro [Admelog] 25 unit SQ AC-TID 09/19/19 09/25/19 History tiZANidine [Zanaflex] 4 mg PO BID PRN 09/19/19 09/25/19 History traZODone HCL 100 mg PO HS 09/19/19 09/25/19 History Metoclopramide [Reglan] 10 mg PO Q6H PRN #20 tab 09/20/19 09/25/19 Rx Pantoprazole Sodium [Protonix] 40 mg PO DAILY #30 tablet. 09/20/19 09/25/19 Rx Allergies Allergy/AdvReac Type Severity Reaction Status Date / Time No Known Allergies Allergy Verified 09/25/19 11:59 Physical Exam Vitals: Vital Signs Temp Pulse Pulse Resp BP BP Pulse Ox 09/26/19 07:20 97.7 F 68 18 130/83 98 09/26/19 04:00 97.2 F L 80 18 138/78 97 09/25/19 23:55 98.3 F 79 18 165/96 95 09/25/19 19:23 98.5 F 74 18 137/79 95 09/25/19 16:00 98.1 F 76 18 143/84 93 L 09/25/19 13:23 98.2 F 69 16 149/83 96 09/25/19 13:00 97.6 F 77 19 200/88 97 09/25/19 11:40 79 16 126/80 93 L 09/25/19 11:37 72 18 145/86 95 09/25/19 11:33 84 18 147/86 96 09/25/19 10:50 88 26 H 129/105 98 09/25/19 10:24 98.9 F 81 26 H 172/121 95 09/25/19 10:20 98.5 F 88 19 182/100 96 Intake and Output 09/25/19 09/26/19 09/26/19 22:59 06:59 14:59 Other: Voiding Method Toilet Toilet # Voids 1 2 Results 09/25/19 10:56 09/25/19 10:56 Cardiac Enzymes 09/25/19 09/25/19 09/25/19 Range/Units 10:56 10:56 17:13 AST 22 (17-59) U/L Troponin I <0.012 <0.012 (0.000-0.034) ng/mL 09/25/19 Range/Units 22:45 AST (17-59) U/L Troponin I <0.012 (0.000-0.034) ng/mL Coagulation 09/25/19 Range/Units 10:56 PT 9.9 (9.0-12.0) sec APTT 21.8 L (22.0-30.0) sec Lipids 09/25/19 Range/Units 10:56 Triglycerides 157 H (<150) mg/dL Cholesterol 192 (<200) mg/dL HDL Cholesterol 27 L (40-60) mg/dL CBC 09/25/19 Range/Units 10:56 WBC 5.7 (3.8-10.6) k/uL RBC 4.86 (4.30-5.90) m/uL Hgb 12.1 L (13.0-17.5) gm/dL Hct 38.2 L (39.0-53.0) % Plt Count 228 (150-450) k/uL Comprehensive Metabolic Panel 09/25/19 Range/Units 10:56 Sodium 137 (137-145) mmol/L Potassium 4.9 (3.5-5.1) mmol/L Chloride 101 (98-107) mmol/L Carbon Dioxide 27 (22-30) mmol/L BUN 10 (9-20) mg/dL Creatinine 0.85 (0.66-1.25) mg/dL Glucose 255 H (74-99) mg/dL Calcium 9.3 (8.4-10.2) mg/dL AST 22 (17-59) U/L ALT 14 (4-49) U/L Alkaline Phosphatase 87 (38-126) U/L Total Protein 7.2 (6.3-8.2) g/dL Albumin 4.2 (3.5-5.0) g/dL Current Medications Generic Name Dose Route Start Last Admin Trade Name Freq PRN Reason Stop Dose Admin Aspirin 81 mg 09/26/19 09:00 Aspirin PO DAILY [facility] Atorvastatin Calcium 40 mg 09/26/19 09:00 Lipitor PO DAILY [facility] Famotidine 20 mg 09/25/19 14:00 09/25/19 21:34 Pepcid IV 20 mg Q12HR [id number] Administration Gabapentin 400 mg 09/25/19 23:12 09/25/19 23:55 Neurontin PO 400 mg DAILY PRN Administration Pain Insulin Aspart 0 unit 09/25/19 17:30 09/25/19 21:34 Novolog SQ 7 unit ACHS [facility] Administration Protocol Insulin Detemir 45 unit 09/25/19 23:15 09/25/19 23:28 Levemir SQ 45 unit HS [facility] Administration Insulin Human Lispro 25 unit 09/26/19 07:30 Humalog (For Pump) SQ-PUMP AC-TID [facility] Lisinopril 5 mg 09/26/19 09:00 Zestril PO DAILY [facility] Metoclopramide HCl 10 mg 09/25/19 15:42 09/25/19 15:47 Reglan IVP 10 mg Q6HR PRN Administration Nausea Morphine Sulfate 4 mg 09/25/19 15:28 09/26/19 04:14 Morphine Sulfate (Inj) IVP 4 mg Q6HR PRN Administration Pain Nitroglycerin 0.4 mg 09/25/19 12:56 Nitrostat SUBLINGUAL Q5M PRN Chest Pain Ondansetron HCl 4 mg 09/25/19 13:59 09/25/19 21:34 Zofran IVP 4 mg Q6HR PRN Administration Nausea And Vomiting Tizanidine HCl 4 mg 09/25/19 23:34 09/26/19 00:07 Zanaflex PO 4 mg BID PRN Administration Muscle Spasm Trazodone HCl 100 mg 09/25/19 23:45 09/25/19 23:55 Desyrel PO 100 mg HS YAAKOV Administration Intake and Output 09/25/19 09/26/19 09/26/19 22:59 06:59 14:59 Other: Voiding Method Toilet Toilet # Voids 1 2 09/25/19 10:56 09/25/19 10:56
[2019-09-26] MEDS: FAMOTIDINE 20 MG/2 ML VIAL IV SCH (08:16)
[2019-09-26] MEDS: ONDANSETRON 4 MG/2 ML VIAL IVP PRN (08:16)
[2019-09-26] MEDS: INSULIN ASPART (NovoLOG) 100 UNIT/ML VIAL SQ SCH ×2 (08:20→12:31)
[2019-09-26] MEDS ORDERED: ASPIRIN 325 MG TAB PO SCH (09:00)
[2019-09-26] MEDS ORDERED: LISINOPRIL 5 MG TAB PO SCH (09:00)
[2019-09-26] MEDS ORDERED: ATORVASTATIN 40 MG TAB PO SCH (09:00)
[2019-09-26] MEDS ORDERED: ASPIRIN 81 MG PO SCH (09:00)
[2019-09-26] MEDS: INSULIN LISPRO (For Pump) 100 UNIT/ML VIAL SQ-PUMP SCH ×2 (09:10→12:32)
[2019-09-26 10:22] VITALS: BMI 44.9
--- NOTE | 2019-09-26 10:44 | ECHOF ---
Referral Reason:cp MEASUREMENTS -------- HEIGHT: 185.4 cm WEIGHT: 154.2 kg BP: 130/83 RVIDd: 3.8 cm (< 3.3) IVSd: 1.4 cm (0.6 - 1.1) LVIDd: 4.6 cm (3.9 - 5.3) LVPWd: 1.6 cm (0.6 - 1.1) IVSs: 1.9 cm LVIDs: 2.9 cm LVPWs: 1.4 cm LA Diam: 3.3 cm (2.7 - 3.8) Ao Diam: 3.2 cm (2.0 - 3.7) AV Cusp: 1.9 cm (1.5 - 2.6) MV EXCURSION: 18.829 mm (> 18.000) MV EF SLOPE: 58 mm/s (70 - 150) EPSS: 1.4 cm MV E Marcello: 1.06 m/s MV DecT: 233 ms MV A Marcello: 0.76 m/s MV E/A Ratio: 1.41 RAP: 5.00 mmHg RVSP: 27.68 mmHg FINDINGS -------- Sinus rhythm. This was a technically difficult study with suboptimal views. The left ventricular size is normal. There is moderate concentric left ventricular hypertrophy. O verall left ventricular systolic function is normal with, an EF between 55 - 60 %. The right ventricle is mild to moderately enlarged. The left atrial size is normal. The right atrium was not well visualized. 5.0mg of Lumason was utilized for enhancement of images The aortic valve was not well visualized. The mitral valve is normal. Mild tricuspid regurgitation present. Right ventricular systolic pressure is normal at < 35 mmHg. The pulmonic valve was not well visualized. The aortic root size is normal. IVC Not well visulized. There is no pericardial effusion. CONCLUSIONS -------- 1. Sinus rhythm. 2. This was a technically difficult study with suboptimal views. 3. There is moderate concentric left ventricular hypertrophy. 4. Overall left ventricular systolic function is normal with, an EF between 55 - 60 %. 5. The right ventricle is mild to moderately enlarged. 6. The left atrial size is normal. 7. 5.0mg of Lumason was utilized for enhancement of images 8. The aortic valve was not well visualized. 9. The mitral valve is normal. 10. Mild tricuspid regurgitation present. 11. Right ventricular systolic pressure is normal at < 35 mmHg. 12. The pulmonic valve was not well visualized. 13. There is no pericardial effusion. DIRECTOR OF REGULATORY AFFAIRS: PEDRO PABLO Coleman
[2019-09-26 11:33] VITALS: BP 145/89; PULSE 69
[2019-09-26 11:40] LABS: Glucose,Whole Blood 235 mg/dL (75-99)
[2019-09-26 15:16] LABS: Hemoglobin A1C 10.1 % (4.0-6.0)
[2019-09-26] MEDS ORDERED: FAMOTIDINE 20 MG TAB PO SCH (21:00)
--- NOTE | 2019-10-12 21:24 | P.DS ---
Providers Date of admission: 09/25/19 12:57 Expected date of discharge: 09/26/19 Attending physician: Jabari Rawls Consults: 09/25/19 12:57 Consult Physician Urgent Consulting Provider: Alis Salmon Consult Reason/Comments: chest pain Do you want consulting provider notified?: Yes Primary care physician: Jeanne Samaritan Hospital Course: Discharge diagnosis Upper abdominal pain and chest pain with possible gastritis and related to his recurrent abdominal pain from previous surgery. Ruled out ACS. Coronary artery disease with history of cardiac cath with 40% stenosis done at [facility]. Hyperglycemia with uncontrolled diabetes type 2 insulin-dependent Hypertension Hyperlipidemia History of seizure disorder Obstructive sleep apnea Diabetic peripheral neuropathy Obstructive sleep apnea. 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 Patient says that he felt pressure-like sensation in the upper abdomen and lower chest pain. Also complains of left shoulder pain on and off. Patient does have nausea. No acute source of vomiting. Denied shortness of breath. Patient felt similar pain previously. Patient was admitted to the hospital with nausea and vomiting and was discharged on 01/19/2019, improvement with symptomatic management. Denied any fever or chills. No cough or sputum production. EKG showed normal sinus rhythm. Chest x-ray showed continued enlargement of the known posterior mediastinal mass enlarging the right hilum. Chronic right pleural thickening/postsurgical change and subpleural deportation of fat. Subsegmental left basilar atelectasis. 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 09/26/2019 Patient says that his abdominal pain is improved with medications. No complains of chest pain or shortness of breath. Patient is able to tolerate oral diet. Patient does have nausea but improved. of vomiting. Pt. was started on Atorvastattin and added lisinopril. Cath report from 2017 was obtained by cardiology. No further workup recommended at this time. Patient is being discharged home today. PHYSICAL EXAMINATION: Patient is lying in the bed comfortably, no acute distress, awake alert and oriented.. HEENT: Normocephalic. Neck is supple. Pupils reactive. Nostrils clear. Oral cavity is moist. Ears reveal no drainage. Neck reveals no JVD, carotid bruits, or thyromegaly. CHEST EXAMINATION: Trachea is central. Symmetrical expansion. Bibasilar diminished air entry. Lung rios clear to auscultation and percussion. CARDIAC: Normal S1, S2 with no gallops. No murmurs ABDOMEN: Soft. Nontender. Bowel sounds normal. No organomegaly. No abdominal bruits. Extremities: reveal no edema. No clubbing or cyanosis Neurologically awake, alert, oriented x3 with well-coordinated movements. No focal deficits noted Skin: No rash or skin lesions. Psychiatric: Coperative. Nonsuicidal Musculoskeletal: No joint swelling or deformity. Normal range of motion. Discharge vitals reviewed. Patient Condition at Discharge: Fair Plan - Discharge Summary Discharge Rx Participant: No New Discharge Prescriptions: New Atorvastatin [Lipitor] 40 mg PO DAILY #30 tab Nitroglycerin Sl Tabs [Nitrostat] 0.4 mg SUBLINGUAL Q5M PRN #30 tab PRN Reason: Chest Pain Lisinopril [Zestril] 5 mg PO DAILY #30 tab Continue Gabapentin [Neurontin] 400 mg PO DAILY PRN PRN Reason: Pain traZODone HCL 100 mg PO HS tiZANidine [Zanaflex] 4 mg PO BID PRN PRN Reason: Muscle Spasm Insulin Lispro [Admelog] 25 unit SQ AC-TID Insulin Glargine,Hum.rec.anlog [Basaglar Kwikpen U-100] 45 unit SQ HS Pantoprazole Sodium [Protonix] 40 mg PO DAILY #30 tablet. Metoclopramide [Reglan] 10 mg PO Q6H PRN #20 tab PRN Reason: Vomiting Discharge Medication List Gabapentin [Neurontin] 400 mg PO DAILY PRN 03/14/19 [History] Insulin Glargine,Hum.rec.anlog [Basaglar Kwikpen U-100] 45 unit SQ HS 09/19/19 [History] Insulin Lispro [Admelog] 25 unit SQ AC-TID 09/19/19 [History] tiZANidine [Zanaflex] 4 mg PO BID PRN 09/19/19 [History] traZODone HCL 100 mg PO HS 09/19/19 [History] Metoclopramide [Reglan] 10 mg PO Q6H PRN #20 tab 09/20/19 [Rx] Pantoprazole Sodium [Protonix] 40 mg PO DAILY #30 tablet. 09/20/19 [Rx] Atorvastatin [Lipitor] 40 mg PO DAILY #30 tab 09/26/19 [Rx] Lisinopril [Zestril] 5 mg PO DAILY #30 tab 09/26/19 [Rx] Nitroglycerin Sl Tabs [Nitrostat] 0.4 mg SUBLINGUAL Q5M PRN #30 tab 09/26/19 [Rx] Follow up Appointment(s)/Referral(s): Alis Salmon MD [STAFF PHYSICIAN] - 10/09/19 8:45 am Jeanne Celeste MD [Primary Care Provider] - 1-2 days Braxton Del Valle MD [STAFF PHYSICIAN] - 1 Week (follow up with Dr. Del Valle as outpatient.) Patient Instructions/Handouts: Chest Pain (DC), Abdominal Pain (ED) Discharge Disposition: HOME SELF-CARE
--- NOTE | 2019-11-06 16:59 | CDI ---
Documentation Clarification Form Date 11/06/3029 From: MIKAELA Pablo, Sheridan Jones, [employer] Phone: If you have any questions about this query, please contact Sheridan Jones [employer] at [phone] between 8 am and 5 pm Admit Date: 09/25/2019 Patient Name: Lazaro Gandhi Visit Number: [id number] Discharge Date: 09/26/[address] Muhammad Patient presented to the ED with chest pain and admitted to [facility] for same. He has a history of diabetes with neuropathy. Under his past medical history, there is documentation of bilateral foot ulcers. In order to accurately reflect this patients severity of illness, would you please clarify if: Bilateral foot ulcers under active treatment Bilateral foot ulcers not under active treatment Other Undetermined Please document in your progress notes and discharge summary in order to capture severity of illness and risk of mortality. Include clinical findings that support your diagnosis. ___x__ Place X here if this finding has no clinical significance, is not applicable or if you are not able to provide any additional documentation. MTDD
== END 2019-09-26 15:57 | disposition home or self-care (01) ==
LOC: EC 10:19 → 1SOBS 12:57
PROVIDERS: ADMIT Hospitalist; ATTEND Hospitalist
DX: R07.89 Other chest pain (principal); R10.10 Upper abdominal pain, unspecified; E11.42 Type 2 diabetes mellitus with diabetic polyneuropathy; E11.65 Type 2 diabetes mellitus with hyperglycemia; E66.01 Morbid (severe) obesity due to excess calories; Z68.41 Body mass index [BMI] 40.0-44.9, adult; E78.5 Hyperlipidemia, unspecified; G47.33 Obstructive sleep apnea (adult) (pediatric); I10 Essential (primary) hypertension; I25.10 Atherosclerotic heart disease of native coronary artery without angina pectoris; Z79.4 Long term (current) use of insulin; Z79.899 Other long term (current) drug therapy; Z83.3 Family history of diabetes mellitus; Z86.718 Personal history of other venous thrombosis and embolism; Z89.431 Acquired absence of right foot; F41.9 Anxiety disorder, unspecified; F32.9 Major depressive disorder, single episode, unspecified; R11.0 Nausea; Z86.69 Personal history of other diseases of the nervous system and sense organs; K52.9 Noninfective gastroenteritis and colitis, unspecified; M25.512 Pain in left shoulder; Z86.14 Personal history of Methicillin resistant Staphylococcus aureus infection
CPT/HCPCS: 93005 ×2; 96375; 96376 ×2; 96374; 99285; 36415; 80061; 80053; 83735; 84484; 85025; 85610; 85730; 83036; 71046; G0378 ×2; C8929; J2270 ×2; J0360; J2765; J2405 ×2; Q9950; 93306

== ENCOUNTER 2019-10-14 20:12 | Emergency (ER) | payer MEDICARE ==
[2019-10-14 20:37] VITALS: RESP 18
--- NOTE | 2019-10-14 21:05 | ED ---
General Adult HPI - General Chief complaint: Overdose Stated complaint: Accidental overdose Time Seen by Provider: 10/14/19 20:24 Source: patient, family, RN notes reviewed Mode of arrival: wheelchair Limitations: no limitations - History of Present Illness Initial comments: Patient is a pleasant 44-year-old male presenting to the emergency department w ith family for accidental medication ingestion. Patient accidentally took 3 of his Zanaflex instead of his other medication tonight. Patient immediately told his family. Incident occurred around 1 hour ago. Patient feels somewhat drowsy otherwise has no complaints. Patient denies any suicidal ideation. Family does not have any suicidal concerns. Patient denies any confusion or weakness. - Related Data Home Medications Medication Instructions Recorded Confirmed Gabapentin [Neurontin] 400 mg PO DAILY PRN 03/14/19 10/14/19 Insulin Glargine,Hum.rec.anlog 45 unit SQ HS 09/19/19 10/14/19 [Basaglar Kwikpen U-100] Insulin Lispro [Admelog] 25 unit SQ AC-TID 09/19/19 10/14/19 tiZANidine [Zanaflex] 4 mg PO BID PRN 09/19/19 10/14/19 traZODone HCL 100 mg PO HS 09/19/19 10/14/19 Atorvastatin [Lipitor] 40 mg PO HS 10/14/19 10/14/19 Metoclopramide [Reglan] 5 mg PO AC-TID 10/14/19 10/14/19 Pantoprazole Sodium [Protonix] 40 mg PO BID 10/14/19 10/14/19 Trimethobenzamide HCl [Tigan] 300 mg PO Q6H PRN 10/14/19 10/14/19 Previous Rx's Medication Instructions Recorded Lisinopril [Zestril] 5 mg PO DAILY #30 tab 09/26/19 Nitroglycerin Sl Tabs [Nitrostat] 0.4 mg SUBLINGUAL Q5M PRN #30 tab 09/26/19 Allergies Allergy/AdvReac Type Severity Reaction Status Date / Time No Known Allergies Allergy Verified 10/14/19 20:49 Review of Systems ROS Statement: Those systems with pertinent positive or pertinent negative responses have been documented in the HPI. ROS Other: All systems not noted in ROS Statement are negative. Constitutional: Denies: fever Eyes: Denies: eye pain ENT: Denies: ear pain Respiratory: Denies: cough Cardiovascular: Denies: chest pain Endocrine: Denies: fatigue Gastrointestinal: Denies: abdominal pain Genitourinary: Denies: dysuria Musculoskeletal: Denies: back pain Skin: Denies: rash Neurological: Denies: headache, weakness Past Medical History Past Medical History: Diabetes Mellitus, Deep Vein Thrombosis (DVT), Hyperlipidemia, Hypertension, Seizure Disorder, Sleep Apnea/CPAP/BIPAP Additional Past Medical History / Comment(s): Pt recently admitted to [facility] on 09/19/19 with intractable nausea and vomiting thought possible acute gastritis. 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 History of Any Multi-Drug Resistant Organisms: MRSA Date of last positivie culture/infection: 06/17/15 MDRO Source:: Chest abscess Past Surgical History: Tonsillectomy Additional Past Surgical History / Comment(s): 2011 bronchial cyst removed and had hole poked into esophagus, multiple esophageal procedures to repair hole and eventual esophagectomy/clipping with stomach stretched to attach, peg tubes, R great toe/2nd and 5th toe/partial foot amputated, L 5th toe amputation/partial foot amp, I&D chest wound, PICCS in and out. Past Anesthesia/Blood Transfusion Reactions: No Reported Reaction Past Psychological History: Anxiety, Depression Smoking Status: Never smoker Past Alcohol Use History: None Reported Past Drug Use History: None Reported - Past Family History Father Family Medical History: Diabetes Mellitus Additional Family Medical History / Comment(s): ETOH. Father at the age of 56yrs. Mother Family Medical History: No Reported History Additional Family Medical History / Comment(s): Mother is healthy General Exam Limitations: no limitations General appearance: other (Slightly drowsy. Patient does answer questions appropriately and follow commands and opens his eyes spontaneously.) Head exam: Present: normocephalic Eye exam: Present: normal appearance, PERRL, EOMI. Absent: nystagmus ENT exam: Present: normal oropharynx Neck exam: Present: normal inspection Respiratory exam: Present: normal lung sounds bilaterally Cardiovascular Exam: Present: regular rate, normal rhythm GI/Abdominal exam: Present: soft. Absent: tenderness Extremities exam: Present: normal inspection Neurological exam: Present: alert, oriented X3, CN II-XII intact. Absent: motor sensory deficit Psychiatric exam: Present: normal affect, normal mood Skin exam: Present: normal color Course Vital Signs 10/14/19 10/14/19 10/14/19 20:17 20:36 21:54 Temperature 98.1 F Pulse Rate 79 73 69 Respiratory 20 18 18 Rate Blood Pressure 96/61 104/52 104/59 O2 Sat by Pulse 96 95 94 L Oximetry 10/14/19 23:04 Temperature 97.5 F L Pulse Rate 67 Respiratory 18 Rate Blood Pressure 105/68 O2 Sat by Pulse 97 Oximetry EKG Findings - EKG Comments: EKG Findings:: Normal sinus rhythm 74. NH 120. QRS 92. QT 374. QTC 4:15. Normal axis. Normal QRS. No acute ST change. Medical Decision Making - Medical Decision Making Patient reevaluated and resting comfortably in bed, easily arousable. Patient has been alert and appropriate. Patient orients. Disposition Clinical Impression: Accidental drug ingestion Disposition: HOME SELF-CARE Condition: Stable Instructions (If sedation given, give patient instructions): Adult Overdose (ED) Additional Instructions: Please follow-up with primary care physician in the next couple of days for recheck. Return for drowsiness, altered mental status, worsening or changing symptoms or other concerns. Is patient prescribed a controlled substance at d/c from ED?: No Referrals: Jeanne Celeste MD [Primary Care Provider] - 1-2 days Time of Disposition: 23:25
[2019-10-14 23:05] VITALS: BP 105/68; PULSE 67; TEMP 97.5
== END 2019-10-14 23:51 | disposition home or self-care (01) ==
LOC: EC 20:12
DX: T42.8X1A Poisoning by antiparkinsonism drugs and other central muscle-tone depressants, accidental (unintentional), initial encounter (principal); E11.40 Type 2 diabetes mellitus with diabetic neuropathy, unspecified; F41.9 Anxiety disorder, unspecified; F32.9 Major depressive disorder, single episode, unspecified; I10 Essential (primary) hypertension; E78.5 Hyperlipidemia, unspecified; G47.33 Obstructive sleep apnea (adult) (pediatric); Z79.4 Long term (current) use of insulin; Z79.899 Other long term (current) drug therapy; Z86.718 Personal history of other venous thrombosis and embolism; Z99.89 Dependence on other enabling machines and devices
CPT/HCPCS: 93005; 99284